=== PATIENT | male | born 1955 | race Caucasian/White ===

== ENCOUNTER 2023-10-11 14:14 | Outpatient (OUT) | payer MEDICARE, SELFPAY ==
--- NOTE | 2023-10-11 14:22 | ECG_ITS ---
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
--- NOTE | 2023-10-11 15:00 | PM.PRESUREVA ---
History of Present Illness History of Present Illness Chief complaint: BPH with Obstruction Narrative: Patient presents for preadmission testing accompanied by his . The patient states he had an elevated PSA, urinary retention, and nocturia. He denies abdominal pain, nausea, vomiting, fever, or any other complaints. Review of Systems ROS Narrative REVIEW OF SYSTEMS: Negative except as stated in HPI, ten or more systems reviewed. Constitutional: No fever , chills, weakness ENT: No sore throat or epistaxis Cardiovascular: No edema, chest pain, palpitations, or activity intolerance Respiratory: No shortness of breath, cough, or wheezing Musculoskeletal: No joint pain or swelling Gastrointestinal: No abdominal pain, constipation, diarrhea, or vomiting Genitourinary: No dysuria or hematuria Neurological: No numbness, tingling, weakness, or headache Psychiatric: No mood changes [facility] Medical History (Updated 10/11/23 @ 15:05 by Linda Umanzor NP) Bowel perforation ?K63.1 - Perforation of intestine (nontraumatic) (ICD-10) Colostomy in place ?Z93.3 - Colostomy status (ICD-10) Pulmonary embolism ?I26.99 - Other pulmonary embolism without acute cor pulmonale (ICD-10) Deep vein thrombosis ?I82.409 - Acute embolism and thrombosis of unspecified deep veins of unspecified lower extremity (ICD-10) Hypothyroidism ?E03.9 - Hypothyroidism, unspecified (ICD-10) BPH with urinary obstruction ?N40.1 - Benign prostatic hyperplasia with lower urinary tract symptoms (ICD-10) ?N13.8 - Other obstructive and reflux uropathy (ICD-10) Surgical History (Updated 10/11/23 @ 14:47 by Linda Umanzor NP) History of colostomy reversal ?Z98.890 - Other specified postprocedural states (ICD-10) History of arthroscopy of shoulder ?Z98.890 - Other specified postprocedural states (ICD-10) History of arthroscopy of knee ?Z98.890 - Other specified postprocedural states (ICD-10) History of hernia repair ?Z98.890 - Other specified postprocedural states (ICD-10) ?Z87.19 - Personal history of other diseases of the digestive system (ICD-10) History of colonoscopy ?Z98.890 - Other specified postprocedural states (ICD-10) S/P cystoscopy (10/05/23) ?Z98.890 - Other specified postprocedural states (ICD-10) Family History (Updated 10/11/23 @ 14:47 by Linda Umanzor NP) Other Family history of myocardial infarction Social History (Updated 10/11/23 @ 14:41 by Linda Umanzor NP) Within the past year, how often did you have a drink containing alcohol: 2-4 times a month Smoking status: Former smoker Non-prescribed substance use: denies use Known occupational exposures/hazards details: [employer] Highest level of school completed/degree received: high school graduate Meds Home Medications and Allergies Home Medications Medication Instructions Recorded Confirmed Type atorvastatin 10 mg tablet 10 mg PO .COMPLEX 10/11/23 10/11/23 History azelastine 137 mcg (0.1 %) nasal 1 spray intranasal DAILY 10/11/23 10/11/23 History spray aerosol ciprofloxacin HCl 500 mg tablet 500 mg PO BID 10/11/23 10/11/23 History hydroxyzine HCl 50 mg tablet 100 mg PO QPM 10/11/23 10/11/23 History levothyroxine 50 mcg tablet 50 mcg PO DAILY 10/11/23 10/11/23 History tamsulosin 0.4 mg capsule 0.4 mg PO BID 10/11/23 10/11/23 History Allergies Allergy/AdvReac Type Severity Reaction Status Date / Time No Known Drug Allergies Allergy Verified 10/11/23 14:38 Exam Narrative Exam Narrative: Constitutional: Awake, alert, comfortable, well-appearing, nontoxic, interactive, vital signs as charted Head: Normocephalic, atraumatic Neck: Supple, normal appearance, normal range of motion, no meningeal signs, no lymphadenopathy Respiratory: No respiratory distress, breath sounds clear Cardiovascular: Regular rate and rhythm, strong and regular heart tones Abdomen: Nontender, normal bowel sounds, soft, no CVA tenderness Musculoskeletal: Normal gait, no swelling or edema Skin: No rashes or induration, no lesions, only visible skin inspected Neuro: No neurological deficits, normal sensation Psychiatric: Oriented ?3, normal affect Assessment and Plan Assessment and Plan (1) BPH with urinary obstruction: Plan Cystoscopy/transurethral resection of the prostate scheduled with Dr. Lyn 10/21/2023.
[2023-10-11 15:17] LABS: Basophils Percent Auto 0.5 % (0.2-2.0); Eosinophils Absolute Auto 0.4 10^3/uL (0.0-0.7); Eosinophils Percent Auto 6.9 % (0.9-7.0); Hematocrit 45.1 % (42.0-54.0); Hemoglobin 14.8 g/dL (14.0-18.0); Immature Granulocytes Abs Auto 0.02 10^3/uL (0.00-0.03); Immature Granulocytes Pct Auto 0.3 % (0.0-0.5); Lymphocytes Absolute Auto 0.8 10^3/uL (1.2-3.8); Lymphocytes Percent Auto 13.1 % (20.5-60.0); Mean Corpuscular HGB Conc 32.8 g/dL (29.9-35.2); Mean Corpuscular Hemoglobin 29.1 pg (25.9-34.0); Mean Corpuscular Volume 88.6 fL (80.0-94.0); Mean Platelet Volume 9.1 fL (9.5-13.5); Monocytes Absolute Auto 0.7 10^3/uL (0.3-0.8); Monocytes Percent Auto 11.4 % (1.7-12.0); Neutrophils Absolute Auto 4.2 10^3/uL (1.4-6.5); Neutrophils Percent Auto 67.8 % (43.0-75.0); Platelet Count 232 10^3/uL (150-450); Red Blood Count 5.09 10^6/uL (4.70-6.10); Red Cell Distribution Width 13.6 % (11.0-15.0); White Blood Count 6.1 10^3/uL (4.0-11.0)
[2023-10-11 15:33] LABS: INR 0.94; Partial Thromboplastin Time 33.5 sec (22.3-36.2)
[2023-10-11 16:20] LABS: Anion Gap 13.9; BUN Creatinine Ratio 17.1; Calcium 8.8 mg/dL (8.5-10.1); Carbon Dioxide 25.1 mmol/L (21.0-32.0); Chloride 105 mmol/L (98-107); Estimated GFR (African America >60 (>=60); Estimated GFR (Non-African Ame 56 (>=60); Glucose 78 mg/dL (74-106); Sodium 140 mmol/L (136-145)
== END 2023-10-11 14:15 | disposition home or self-care (01) ==
LOC: PST 14:15
PROVIDERS: PCP Family Medicine; Visit Provider Urology
DX: Z01.810 Encounter for preprocedural cardiovascular examination (principal); Z01.812 Encounter for preprocedural laboratory examination; Z01.818 Encounter for other preprocedural examination; N40.0 Benign prostatic hyperplasia without lower urinary tract symptoms
CPT/HCPCS: 80048; 85025; 85610; 85730; 93005; G0463

== ENCOUNTER 2023-10-21 14:45 | Outpatient (OUT) | payer MEDICARE, SELFPAY ==
[2023-10-11 14:58] VITALS: BP 127/83; PULSE 81; RESP 16; TEMP 36.3; O2SAT 97; BMI 31.2
[2023-10-21] VITALS (14 sets, daily range): BP systolic 110–155; BP diastolic 71–104; PULSE 62–100; RESP 10–22; TEMP 35.9–36.7; O2SAT 90–98; BMI 30.6; BMI 30.5
--- OUTSIDE RECORDS SUMMARY | 2023-10-21 10:24 | XMS_ITS | CCD ---
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 Name Role Phone KUNS, NASRIN Unavailable Unavailable KUNS, NASRIN Unavailable Unavailable SELF, REFERRED Referring Unavailable SELF, REFERRED Primary Care Unavailable JOSE ALEJANDRO SAUCEDO Attending Unavailable EBJOSE ALEJANDRO ANGULO Admitting Unavailable Kuns, Nasrin Unavailable Shanell Byrne Unavailable Kuns, DO Nasrin Primary Care Provider Kuns, DO Nasrin Attending Provider Kuns, DO Nasrin Primary Care Provider [phone] Kuns, DO Nasrin Attending Provider [phone] Kuns, DO Nasrin Primary Care Provider [phone] Kuns, DO Nasrin Attending Provider MD Kameron Marin Attending Provider Kuns, DO Nasrin Primary Care Provider [phone] Kuns, DO Nasrin Primary Care Provider Kuns, DO Nasrin Attending Provider Kuns, Nasrin Primary Care Unavailable Donato Marint Attending Unavailable Tomas Kameron Admitting Unavailable Community, Outreach Admitting Unavailable Community, Outreach Attending Unavailable Kuns, Nasrin Primary Care Unavailable Kuns, Nasrin Primary Care Unavailable Kuns, Nasrin Attending Unavailable Kuns, Nasrin Admitting Unavailable Marin, Kameron Admitting Unavailable MarinDonatot Attending Unavailable Kuns, Nasrin Primary Care Unavailable Kuns, Nasrin Attending Unavailable Kuns, Nasrin Admitting Unavailable Kuns, Nasrin Primary Care Unavailable Carlozs, Nasrin Attending Unavailable Donna, Nasrin Admitting Unavailable Donna, Nasrin Primary Care Unavailable Kameron Marin Admitting Unavailable Donna, Nasrin Primary Care Unavailable Kameron Marin Attending Unavailable Unavailable Primary Care Provider Unavailfaby e Community, Outreach Attending Provider [phone] DONNASARAHTT Primary Care Physician [phone] MARTINEZ KAUR Referring Unavailable MARTINEZ KAUR Attending Unavailable MARTINEZ KAUR Referring Unavailable IVETTE POOLE Attending Unavailable MARTINEZ KAUR Attending Unavailable Harshil RAM Attending Unavailable DONNA, NASRIN Referring Unavailable RAM, Harshil Hilton Attending Unavailable RAMHarshil Admitting Unavailable RAM, Harshil Hilton Attending Unavailable RAM, Harshil Hilton Referring Unavailable RAM, Harshil Hilton Attending Unavailable SKYE TOBIN Attending Unavailable Allergies Allergy Classification Reported Allergen(s) Allergy Type Date of Onset Reaction(s) Facility (1 source) No Known Medication Allergies; Translations: [No Known Medication Allergies] Propensity to adverse reactions (disorder) [facility] Repository Medications Current Medications Medication Drug Class(es) Dates Sig (Normalized) Sig (Original) acetaminophen 325 mg / HYDROcodone bitartrate 5 mg oral tablet (5 sources) Opioid Agonist Start: 12-31-2022 take 1 tablet by mouth every six hours Hydrocodone-Acetam inophen Active 1 TAB PO Q6H 20 5 December 31, 2022 atorvastatin 10 mg oral tablet (20 sources) HMG-CoA Reductase Inhibitor Start: 10-17-2018 End: 12-18-2022 atorvastatin 10 mg Tab Oral, 0 Refill(s), Refills(s) 0 Start Date: 10/17/18 Status: Ordered azithromycin 250 mg oral tablet (3 sources) Macrolide Antimicrobial Start: 01-27-2022 Zithromax Z-Gilbert 250 MG 2 tablet on the first day, then 1 tablet daily for 4 days Orally Once a day for 5 day(s) Jan, Active ciprofloxacin 500 mg oral tablet (6 sources) Quinolone Antimicrobial Start: 09-13-2023 End: 10-13-2023 take 1 tablet by mouth twice daily Cipro 500 mg Tab 500 mg = 1 tab(s), Oral, BID, X 1 months, # 60 tab(s), Refills(s) 0, Pharmacy: [id number], 195, cm, 09/13/23 12:36:00 EST, Height/Length Dosing, 104.6, kg, 09/13/23 12:36:00 EST, Weight Dosing Start Date: 09/13/23 Stop Date: 10/13/23 Status: Ordered Start: 12-30-2021 take 1 tablet by margarita th every twelve hours Ciprofloxacin HCl 500 MG 1 tablet Orally every 12 hrs Dec, Active ezetimibe 10 mg oral tablet (4 sources) Dietary Cholesterol Absorption Inhibitor Start: 06-23-2022 take 1 tablet by mouth every twenty-four hours Ezetimibe 10 MG 1 tablet Orally Once a day for 90 days Jun, Active hydrOXYzine hydrochloride 50 mg oral tablet (20 sources) Antihistamine Start: 12-03-2021 take 1-2 tablets by mouth once daily at bedtime as needed hydrOXYzine HCl 50 MG 1-2 tablet as needed Orally QHS Dec, Active levothyroxine sodium 0.05 mg oral tablet (20 sources) l-Thyroxine Start: 06-23-2022 take 50 ug by mouth once daily in the morning Levothyroxine Active 50 MCG PO Every morning December 18, 2022 12:00am Start: 06-22-2022 Synthroid 50 m cg Tab Oral, 0 Refill(s), Refills(s) 0 Start Date: 06/22/22 Status: Ordered methylPREDNISolone 4 mg oral tablet (4 sources) Corticosteroid Start: 01-27-2022 Medrol 4 MG as directed Orally Jan, Active Start: 08-06-2021 Medrol 4 MG as directed Orally Aug, Active Kktzevii-Olh-Nfqpe-Vit K-Lycop (Men's Multivitamin) 400-20-300 mcg Tablet (8 sources) Start: 09-01-2019 take 1 tablet by mouth once daily in the morning Dktviwvk-Rqy-Frjqw-Vit K-Lycop (Men's Multivitamin) 400-20-300 mcg Tablet Active 1 TAB PO Every morning September 01, 2019 1:00am Start: 09-01-2019 take 1 tablet by margarita th once daily Sgbpyfdd-Mkz-Qxmii-Vit K-Lycop (Men's Multivitamin) 400-20-300 mcg Tablet Active 1 TAB PO Daily September 01, 2019 12:00am Start: 09-01-2019 take 1 tablet by margarita th once daily Mwdldioz-Chp-Jmlku-Vit K-Lycop (Men's Multivitamin) 400-20-300 mcg Tablet Active 1 TAB PO Daily September 01, 2019 1:00am rosuvastatin calcium 10 mg oral tablet (15 sources) HMG-CoA Reductase Inhibitor Start: 12-18-2022 take 1 tablet by mouth once Rosuvastatin (Crestor) 10 mg Tablet Active 10 MG PO every Wednesday, Wednesday, and Sunday December 18, 2022 12:00am Start: 02-23-2018 End: 10-17-2018 take 1 tablet by mouth once daily Rosuvastatin (Crestor) 5 mg Tablet Discontinued 1 TAB PO Daily February 23, 2018 12:00am October 17, 2018 5:09pm Start: 09-07-2011 take 1 tablet by margarita th once daily at bedtime rosuvastatin (CRESTOR) 20 mg ORAL tablet Take 1 tablet by mouth daily at bedtime. 0 09/07/2011 Active Comment on above: Take 1 tablet by margarita th daily at bedtime. tamsulosin hydrochloride 0.4 mg oral capsule (20 sources) alpha-Adrenergic Karolyn Start: take 1 capsule by mouth every twenty-four hours Tamsulosin HCl 0.4 MG 1 capsule Orally Once a day for 90 days Dec, Active Start: 12-29-2021 take 1 capsule by mo uth twice daily tamsulosin 0.4 mg Cap 0.4 mg = 1 cap(s), Oral, BID, # 60 cap(s), Refills(s) 11, Pharmacy: [id number], 195, cm, 09/13/23 12:36:00 EST, Height/Length Dosing, 104.6, kg, 09/13/23 12:36:00 EST, Weight Dosing Start Date: 09/13/23 Status: Ordered Completed/Discontinued Medications Medication Drug Class(es) Dates Sig (Normalized) Sig (Original) acetaminophen 325 mg / oxyCODONE hydrochloride 5 mg oral tablet (8 sources) Opioid Agonist Start: 09-23-2019 End: 12-18-2022 take 1 tablet by mouth every four hours Oxycodone-Acetamin ophen Discontinued 1 TAB PO Q4H 42 7 September 23, 2019 December 18, 2022 9:36am amitriptyline hydrochloride 100 mg oral tablet (1 source) Tricyclic Antidepressant take 1 tablet by mouth once daily at bedtime amitriptyline 100 mg ORAL tablet Take 100 mg by mouth daily at bedtime. 0 Active Comment on above: Take 100 mg by mouth daily at bedtime. apixaban 5 mg oral tablet (16 sources) Factor Xa Inhibitor Start: 09-26-2019 End: 12-18-2022 take 1 tablet by mouth twice daily Apixaban (Eliquis) 5 mg tablet Discontinued 5 MG PO Twice daily 180 90 September 26, 2019 1:00am December 18, 2022 9:32am start after 1 week Start: 09-26-2019 End: 10-26-2019 take 2 tablets by mouth twice daily, then take 1 tablet by mouth twice daily Apixaban (Eliquis) 5 mg Tablet Discontinued 0 .ROUTE .COMPLEX September 26, 2019 1:00am October 26, 2019 10:10am take 10 mg by mouth twice daily for 7 days; then 5 mg twice daily aspirin 81 mg oral tablet (1 source) Platelet Aggregation Inhibitor, Nonsteroidal Anti-inflammatory Drug Aspirin 81 mg ORA L Tab Take 81 mg by mouth. 0 Active Comment on above: Take 81 mg by mouth. betamethasone 0.5 mg/ml / clotrimazole 10 mg/ml topical cream (13 sources) Azole Antifungal, Corticosteroid Start: 12-05-19 Clotrimazole-Betame thasone 1-0.05 % 1 application Externally Twice a day Dec, Not-Taking doxycycline hyclate 100 mg oral capsule (8 sources) Tetracycline-class Drug Start: 11-05-19 End: 11-12-19 19 take 100 mg by mouth twice daily Doxycycline Hyclate Discontinued 100 MG PO Twice daily 14 7 November 05, 2018 1:00am November 12, 2018 1:02am fluticasone propionate 0.05 mg/actuat metered dose nasal spray (4 sources) Corticosteroid Start: 06-23-20 23 take 1 spray(s) nasal route twice daily fluticasone (FLONASE ALLERGY RELIEF) 50 mcg/actuation nasal spray Use 1 [place] in each nostril twice daily. 18.2 mL 5 06/23/2023 Active Start: 07-13-2019 take 1 spray(s) nasa l route once daily Fluticasone Propionate 50 MCG/ACT 1 spray in each nostril Nasally Once a day Jul, Active Comment on above: Use 1 [place] in each nostril twice daily. levoFLOXacin 750 mg oral tablet (8 sources) Quinolone Antimicrobial Start: 03-17-20 End: 09-01-20 take 750 mg by mouth once daily Levofloxacin Discontinued 750 MG PO Daily 7 March 17, 2019 12:00am September 01, 2019 11:15am metroNIDAZOLE 500 mg oral tablet (8 sources) Nitroimidazole Antimicrobial Start: 03-17-20 End: 09-01-20 take 1 tablet by mouth every eight hours Metronidazole (Flagyl) 500 mg tablet Discontinued 500 MG PO Q8H 23 04March 17, 2019 12:00am September 01, 2019 11:15am multivitamin (DAILY MULTIPLE) ORAL tablet (1 source) Start: 09-07-20 take 1 tablet by mouth once daily multivitamin (DAILY MULTIPLE) ORAL tablet Take 1 tablet by mouth once daily. 0 09/07/2011 Active Comment on above: Take 1 tablet by margarita th once daily. promethazine hydrochloride 25 mg oral tablet (8 sources) Phenothiazine Start: 10-26-19 End: 11-05-19 take 25 mg by mouth every six hours Promethazine Discontinued 25 MG PO Q6H October 26, 2018 1:00am November 05, 2018 2:47pm traMADol hydrochloride 50 mg oral tablet (16 sources) Opioid Agonist Start: 11-05-19 End: 11-08-19 take 50 mg by mouth every six hours Tramadol Discontinued 50 MG PO Q6H 10 November 05, 2018 1:00am November 08, 2018 1:02am Start: 10-26-2018 End: 11-02-2018 take 50 mg by mouth every six hours Tramadol Discontinued 50 MG PO Q6H 28 October 26, 2018 1:00am November 02, 2018 1:01am Problems Active Problems Problem Classification Problem Date Documented Da te Episodic/Chronic Allergic reactions (20 sources) Eczema; Translations: [Dermatitis, unspecified] Onset: 2 Resolved: 2 Episodic Asthma (4 sources) Asthmatic bronchitis; Translations: [Unspecified asthma with (acute) exacerbation] Onset: 2 Resolved: 2 Chronic Disorders of lipid metabolism (20 sources) Hyperlipidemia; Translations: [Hyperlipidemia, unspecified] Onset: 1 Resolved: 3 Chronic Genitourinary symptoms and ill-defined conditions (17 sources) Retention of urine, unspecified; Translations: [Dysuria] Onset: 2 Resolved: 3 Episodic Hyperplasia of prostate (7 sources) Straining on urination due to benign prostatic hypertrophy; Translations: [Benign prostatic hyperplasia with lower urinary tract symptoms] Onset: 3 Chronic Inflammatory conditions of male genital organs (3 sources) Chronic prostatitis; Translations: [Chronic prostatitis] Onset: 3 Chronic Joint disorders and dislocations; trauma-related (1 source) Derangement of knee; Translations: [Unspecified internal derangement of unspecified knee] Onset: 1 07-22-2011 Chronic Nutritional deficiencies (8 sources) Deficiency of macronutrients; Translations: [Unspecified protein-calorie malnutrition] 10-26-2019 Chronic Osteoarthritis (20 sources) Localized, primary osteoarthritis of the shoulder region; Translations: [Primary osteoarthritis, unspecified shoulder] Chronic Other connective tissue disease (13 sources) Pain in right hand; Translations: [Pain in right hand] Episodic Other ear and sense organ disorders (12 sources) Otitis externa; Translations: [Unspecified otitis externa, unspecified ear] Chronic Other ear and sense organ disorders (6 sources) Bilateral hearing loss; Translations: [Unspecified hearing loss, bilateral] 06-23-2023 Chronic Other ear and sense organ disorders (1 source) Unspecified hearing loss, bilateral Chronic Other ear and sense organ disorders (1 source) Does use hearing aid; Translations: [Presence of external hearing-aid] 06-23-2023 Episodic Other ear and sense organ disorders (1 source) Bilateral referred otalgia of ears; Translations: [Otalgia, bilateral] 06-23-2023 Episodic Other gastrointestinal disorders (12 sources) Colostomy present; Translations: [Colostomy status] Chronic Other gastrointestinal disorders (12 sources) History of disorder of digestive system; Translations: [Personal history of other diseases of the digestive system] Episodic Other gastrointestinal disorders (8 sources) Perforation of sigmoid colon; Translations: [Perforation of intestine (nontraumatic)] 10-26-2019 Episodic Other gastrointestinal disorders (8 sources) Viscus structure finding; Translations: [Other specified symptoms and signs involving the digestive system and abdomen] 10-26-2019 Episodic Other lower respiratory disease (1 source) Shortness of breath; Translations: [Shortness of breath] Onset: 8 Episodic Other nervous system disorders (5 sources) Acute postoperative pain; Translations: [Other acute postprocedural pain] 12-31-2022 Episodic Other non-traumatic joint disorders (20 sources) Shoulder joint pain; Translations: [Pain in right shoulder] Episodic Other screening for suspected conditions (not mental disorders or infectious disease) (20 sources) Encounter for screening for malignant neoplasm of prostate; Translations: [Thyroid function tests abnormal] Onset: 1 Resolved: 2 Episodic Other upper respiratory disease (1 source) Allergic disposition; Translations: [Other allergic rhinitis] 06-23-2023 Chronic Otitis media and related conditions (2 sources) Other specified disorders of Eustachian tube, unspecified ear; Translations: [Dysfunction of bilateral eustachian tubes] Episodic Peritonitis and intestinal abscess (8 sources) Peritonitis; Translations: [Peritonitis, unspecified] 10-26-2019 Episodic Pulmonary heart disease (20 sources) Pulmonary embolism; Translations: [Other pulmonary embolism without acute cor pulmonale] 10-24-2019 Episodic Residual codes; unclassified (20 sources) Insomnia; Translations: [Insomnia, unspecified] 09-10-2023 Episodic Residual codes; unclassified (20 sources) FH: Cardiovascular disease; Translations: [Family history of ischemic heart disease and other diseases of the circulatory system] Episodic Residual codes; unclassified (20 sources) History of closure of colostomy; Translations: [Other specified postprocedural states] 10-26-2019 Episodic Residual codes; unclassified (9 sources) Insomnia, unspecified Onset: 2 Resolved: 2 Episodic Residual codes; unclassified (8 sources) History of excision of small intestine; Translations: [Acquired absence of other specified parts of digestive tract] 10-26-2019 Episodic Residual codes; unclassified (1 source) Other specified postprocedural states Episodic Thyroid disorders (16 sources) Acquired hypothyroidism; Translations: [Hypothyroidism, unspecified] Onset: 2 Resolved: 2 Chronic Unclassified (2 sources) Shortness of breath / R06.02(ICD-9) Onset: 8 Unclassified (1 source) Family hx of ischem heart dis and oth dis of the circ sys / Z82.49(ICD-9) Onset: 8 Unclassified (1 source) Pure hypercholesterolemia, unspecified / E78.00(ICD-9) Onset: 8 Unclassified (1 source) Chest pain, unspecified / R07.9(ICD-9) Onset: 8 Unclassified (1 source) Personal history of nicotine dependence / Z87.891(ICD-9) Onset: 8 Unclassified (8 sources) Diverticulitis of gastrointestinal tract; Translations: [Diverticulitis of gastrointestinal tract] 03-17-2019 Unclassified (1 source) Other complications of procedures, not elsewhere classified, initial encounter; Translations: [Other complications of procedures, not elsewhere classified, initial encounter] Onset: 3 Unclassified (1 source) Encounter for preprocedural laboratory examination; Translations: [Encounter for preprocedural laboratory examination] Onset: 3 Unclassified (2 sources) Finding of sensation of bladder 09-13-2023 Unclassified (2 sources) History of closure of colostomy 09-10-2023 Past or Other Problems Problem Classification Problem Date Documented Date Episodic/Chronic Abdominal hernia (1 source) Unspecified abdominal hernia without obstruction or gangrene Onset: 08-06-2021 Resolved: 08-06-2021 Episodic Abdominal pain (9 sources) Acute abdomen; Translations: [Acute abdomen] Onset: 12-08-2022 10-26-2019 Episodic Diabetes mellitus without complication (1 source) Hyperglycemia, unspecified Onset: 08-06-2021 Resolved: 08-06-2021 Episodic Immunizations and screening for infectious disease (1 source) Encounter for immunization Onset: 08-25-2021 Resolved: 08-25-2021 Episodic Other circulatory disease (2 sources) Other specified symptoms and signs involving the circulatory and respiratory systems Onset: 08-26-2021 Resolved: 01-27-2022 Episodic Other connective tissue disease (1 source) Pain in right hand Onset: 06-23-2022 Resolved: 06-23-2022 Episodic Other diseases of kidney and ureters (1 source) Disorder of kidney and ureter, unspecified Onset: 08-06-2021 Resolved: 08-06-2021 Episodic Other liver diseases (1 source) Abnormal levels of other serum enzymes Onset: 08-06-2021 Resolved: 08-06-2021 Episodic Other nervous system disorders (1 source) Other acute postprocedural pain; Translations: [Other acute postprocedural pain] Onset: 12-31-2022 Episodic Other non-traumatic joint disorders (1 source) Pain in lower limb; Translations: [Pain in unspecified knee] Onset: 10-07-2011 10-07-2011 Episodic Other upper respiratory disease (1 source) Nasal congestion Onset: 01-27-2022 Resolved: 01-27-2022 Episodic Screening and history of mental health and substance abuse codes (1 source) Personal history of nicotine dependence Onset: 08-26-2021 Resolved: 08-26-2021 Episodic Spondylosis; intervertebral disc disorders; other back problems (2 sources) Dorsalgia, unspecified Onset: 08-06-2021 Resolved: 08-26-2021 Episodic Unclassified (2 sources) Cough R05.9 Onset: 08-26-2021 Resolved: 01-27-2022 Results Test Name Value Interpretation Reference Range Facility Consent for Procedure/Surger yon 10-07-2023 Consent for Procedure/Surgery [id number] 0TIFF [facility] Consent for Procedure/Surger yon 10-05-2023 Consent for Procedure/Surgery [id number]. 00TIFF [facility] Consent for Treatmenton Consent for Treatment [id number] 0TIFF [facility] IntraOperative Documentson 0 10-05-2023 IntraOperative Documents [id number]. 00TIFF [facility] IntraOperative Documents [id number]. 00TIFF Normal [facility] Main OR Intraoperative Recor don 10-05-2023 Main OR Intraoperative Record IntraOp Document Type FTURO Summary Primary Physician: Harshil RAM MD Finalized Date/Time: 10/05/23 09:58:51 Pt. Name: VASILE YOUSSEF /Sex: 1955 Male Med Rec #: [id number] Physician: Harshil RAM MD Financial #: [id number] Pt. Type: O Room/Bed: / Admit/Disch: 10/05/23 08:07:42 - Institution: Case Times FTURO Entry 1 Patient Times In Room 10/05/23 09:40:00 Out Room 10/05/23 10:00:00 Procedure Times Start 10/05/23 09:50:00 Stop 10/05/23 09:55:00 Anesthesia Times Last Modified By: James BARRAZA, DALEOR, Marilee 10/05/23 09:57:00 Case Attendance FTURO Entry 1 Entry 2 Entry 3 Case Attendee Harshil RAM MD RN, CNOR, Marie Ortiz Role Performed Surgeon - Primary Profiling Machine Operator - Primary Scrub - Primary Time In 10/05/23 09:40:00 10/05/23 09:40:00 10/05/23 09:40:00 Time Out 10/05/23 10:00:00 10/05/23 10:00:00 10/05/23 10:00:00 Procedure CYSTOSCOPY LOCAL(.) CYSTOSCOPY LOCAL(.) CYSTOSCOPY LOCAL(.) Jackson CAO RN IN ORIENTATION Last Modified By: James RN, CNOR, Jaems RN, CNOR, James RN, DALEOR, Marilee 10/05/23 Marilee 10/05/23 Marilee 10/05/23 09:57:03 09:57:03 09:57:03 Surgical Procedures FTURO Entry 1 Procedure Description Procedure CYSTOSCOPY LOCAL Modifiers . Surgeon Description CYSTOCOPY LOCAL Primary Procedure Yes Primary Surgeon Harshil RAM MD Start 10/05/23 09:50:00 Stop 10/05/23 09:55:00 Anesthesia Type Local Surgical Service Urology Wound Class 2 - Clean-Contaminated Last Modified By: ELI Ramirez RN, Ruthann 10/05/23 09:55:27 General Case Data FTURO Pre-Care Text: Classifies surgical wound, implements aseptic technique, initiates traffic control Entry 1 Case Information OR URO 1 FT Case Level None Wound Class 2 - Clean-Contaminated Specialty Urology Preop Diagnosis BPH WITH LUTS Postop Same As Preop No INCOMPLETE EMPTY ELEVATED PSA Postop Diagnosis BPH WITH LUTS Outcomes Met? Yes Last Modified By: ELI Ramirez RN, Ruthann 10/05/23 09:55:18 Post-Care Text: The patient is free from signs and symptoms of infection EU IntraOp - FTURO Pre-Care Text: Implements protective measures prior to operative or invasive procedure, confirms identity before the operative or invasive procedure, verifies operative procedure, surgical site, and laterality Entry 1 EU Perioperative Protocols Procedure(s) CYSTOSCOPY LOCAL(.) Patient Identity Birthday, ID Band Verified (select at Check, Patient least 2): Participation Consents / H and P HandP, Surgery/Procedure Operative Site N/A Verified Consent Marking Verified Surgical Site Yes Laterality Verified n/a Verified Procedure Verified Yes Correct Patient Yes Position Verified Availability Equipment, Medication Time Out ELI Ramirez RN, Verified (If Participants Angel Hunt Laura C Applicable) Time Out Complete 10/05/23 09:41:00 Allergies Reviewed? Yes Allergies Reviewed Self/Patient With Body Position Supine Prep Area PERINEAL AREA Prep Agents Betadine Solution Skin. Condition Dry, Warm Additional None Specimens Collected Vitals - EU Blood Pressure 145/97 Pulse 88 bpm Respirations 16 br/min SPO2 96 % EBL 0 IandO - EU Total Intake 0 mL Total Output 0 mL Outcomes Met? Yes Last Modified By: ELI Ramirez RN, Ruthann 10/05/23 09:44:56 Post-Care Text: The patient is free from signs and symptoms of injury caused by extraneous objects Sign Out FTURO Entry 1 Before Patient Leaves OR Nurse verbally Yes Nurse verbally n/a confirms with the confirms with the team the name of team that the procedure(s) instrument, sponge, recorded and needle counts are correct (or N/A) Nurse verbally n/a Nurse verbally n/a confirms with the confirms with the team how the team whether there specimen is labeled are any equipment (including patient problems to be name), if applicable addressed Sign Out Complete 10/05/23 09:55:00 Last Modified By: ELI Ramirez RN, Ruthann 10/05/23 09:55:40 Case Comments Finalized By: ELI Ramirez RN, Ruthann Document Signatures Signed By: ELI Ramirez RN, Ruthann 10/05/23 09:57 ELI Ramirez RN, Ruthann 10/05/23 09:[address] [facility] Main OR Preoperative Recordo n 10-05-2023 Main OR Preoperative Record Holding Area Document Type FTURO Summary Primary Physician: Harshil RAM MD Finalized Date/Time: 10/05/23 09:27:50 Pt. Name: VASILE YOUSSEF/Sex: 1955 Male Med Rec #: [id number] Physician: Harshil RAM MD Financial #: [id number] Pt. Type: O Room/Bed: / Admit/Disch: 10/05/23 08:07:42 - Institution: Case Times Holding FTURO Pre-Care Text: Verifies consent for planned procedure, identifies individual values and wishes concerning care, includes family members in perioperative teaching Secures patient's records' belongings, and valuables, maintains patient's dignity and privacy, and maintains patient confidentiality Entry 1 In Holding 10/05/23 09:17:00 Outcomes Met? Yes Last Modified By: Shriin Rodriguez RN 10/05/23 09:17:26 Post-Care Text: The patient participates in decisions affecting his or her perioperative plan of care The patient's right to privacy is maintained Surgery Checklist FTURO Entry 1 Patient Birthday, ID Band Procedure History and Physical, Identification: Check, Patient Verification: Surgical Consent, With Participation Patient NPO after Midnight: n/a Personal Items: Glasses Personal Items READING GLASSES Limitations: UP AD ALANNA Comment: Complaints of Pain: No Pain Comment: 0/10 Skin Integrity Dry, Warm Vitals - EU Blood Pressure 145/97 Pulse 88 bpm Respirations 16 br/min SPO2 96 % Additional None RN Reviewed Yes Specimens Collected Last Modified By: Shirin Rodriguez RN 10/05/23 09:25:44 Finalized By: Shirin Rodriguez RN Document Signatures Signed By: Shirin Rodriguez RN 10/05/23 09:25 Shirin Rodriguez RN 10/05/23 09:[address] [facility] Operative Reporton Operative Report Patient: DYANA YOUSSEF Age: 68 years Sex: Male : 1955 Associated Diagnoses: None Author: Harshil RAM MD Procedure Operative Information Details: Date/ Time: 10/05/2023 10:00:00. Pre-Op Dx: BPH w/ LUTS - N40.1, Hx of UTI's - Z87.440, Incomplete Bladder Emptying - R39.14. Post-Op Dx: Same. Anesthesia Type: Local. Procedure: Local Cystoscopy. Complications: None. Risks/Benefits/Informe d Consent: Surgical risks, benefits, details of the procedure have been explained to the patient, Full informed consent has been obtained. Intraoperative Information Prepped: Patient is brought back to the endoscopy suite, Patient is placed in supine position, Patient prepped in the usual fashion with Betadine solution, 2% Xylocaine Jelly is placed per Urethra, After waiting several minutes the Cystoscope is introduced. The Urethra is: Normal. The Prostatic Urethra is: Obstructed, Median Lobe, Trilobar obstruction.. The Bladder is: Trabeculated (Severe (3), Thick trabeculation. Small diverticuli. No bladder tumors.). The ureteral orifices: Show efflux of clear urine. Devices Implanted: None. Removal: Cystoscope is removed, The patient tolerated it well. Postoperative Information Discharge: Patient is discharged home with antibiotic coverage, Follow up arranged. Patient is desirous for TURP. He will continue his Flomax for now.. Normal [facility] Comment on above: Result Comment: Elec tronically Signed By: Harshil RAM MD\.br\Date and Time Signed: 10/05/23 10:02 EST Outpatient Surgery Discharge Instructionon 10-05-2023 Outpatient Surgery Discharge Instruction [id number]. [id number] Normal [facility] Progress Note-Physicianon Progress Note-Physician Patient: VASILE YOUSSEF Age: 68 years Sex: Male : 1955 Associated Diagnoses: None Author: YO OLIVA, Harshil Ulrich X this gentleman has had bladder outlet obstructive symptoms that have been refractory to medications. Today he had cystoscopy which showed trilobar obstruction and compensatory damage to the bladder. He is strongly desirous for TURP. His urodynamics will be getting repeated. Review of Systems ROS reviewed as documented in chart Health Status Allergies: Allergic Reactions (Selected) No Known Medication Allergies Current medications: Home Medications (6) Active atorvastatin 10 mg Tab Cipro 500 mg Tab 500 mg = 1 tab(s), Oral, BID hydrOXYzine hydrochloride 50 mg oral tablet Synthroid 50 mcg Tab tamsulosin 0.4 mg Cap tamsulosin 0.4 mg Cap 0.4 mg = 1 cap(s), Oral, BID Problem list: All Problems Unspecified hearing loss, bilateral / SNOMED CT 099420311 / Confirmed Insomnia / SNOMED CT 031350301 / Confirmed History of closure of colostomy / SNOMED CT 9122736213 / Confirmed Elevated PSA / SNOMED CT 7559350232 / Confirmed BPH with obstruction/lower urinary tract symptoms / SNOMED CT 3864719776 / Confirmed Feeling of incomplete bladder emptying / SNOMED CT 408073383 / Confirmed Chronic prostatitis / SNOMED CT 94379055 / Confirmed Histories Past Medical History: Resolved Acute retention of urine (105987216): Onset on 12/30/2021 at 66 years. Resolved on 09/10/2023 at 68 years. Hyperlipidemia (72357942): Onset on 08/06/2021 at 66 years. Resolved on 09/10/2023 at 68 years. Family History: Entire family history is negative. Procedure history: Knee (085163947). Colostomy (0770012387). Rotator cuff (49272954). Hernia (5697755522). Social History Social & Psychosocial Habits Tobacco 09/13/2023 Tobacco Use: Former smoker, quit more Smokeless tobacco use: Never Type: Cigarettes Concerns about tobacco use in household: No Smoking Cessation Yes . Objective He is afebrile his vital signs are stable. He is resting in no acute distress. Abdomen is soft and nontender. External genitalia are normal. Impression and Plan Impression: #1. This gentleman has BPH with LUTS refractory to medications. He also is getting recurrent prostate infections. He is desirous for TURP. Plan: #1. He will continue twice daily Flomax for now. 2. We will repeat his urodynamics today. 3. He will get scheduled for a TURP. [facility] Comment on above: Result Comment: Elec tronically Signed By: YO OLIVA, Harshil Santiago\Date and Time Signed: 10/05/23 10:05 EST Gregoria 09-23-2023 CNOV Office Visit (OTOLLN ) STEFFVASILE Fong ([id number]) 1955 M Date Time Provider Department 09/23/23 9:40 AM MARTINEZ KAUR During your visit today, we recorded the following information about you: Temperature 97.8 degrees Martinez Kaur PA-C 09/24/2023 2:36 PM Signed [facility] FOLLOW-UP CLINIC NOTE CC: Mr. Youssef is a 68 year old male who comes in for follow up. Patient was last seen on 06/23/2023 with plan of care: ASSESSMENT: Wears hearing aid in both ears Etd (eustachian tube dysfunction), bilateral Environmental and seasonal allergies Bilateral hearing loss, unspecified hearing loss type (primary encounter diagnosis) Referred otalgia of both ears PLAN: - Ordered hearing test with tympanometry for further evaluation of hearing, underlying etiology of tinnitus - Trial of Flonase; instructed patient on appropriate use, side effects and need for daily adherence to realize benefits - Aggressive allergy management, avoidance of allergic triggers, daily oral antihistamine, nasal saline rinses - Warm compress, gentle massage, analgesia as needed, soft diet advised, avoid clenching or grinding teeth; make appointment with a dentist who specializes in TMJ for further treatment, oral appliance if indicated - Advised patient on red flag warning signs, symptoms that warrant immediate evaluation in ER - Follow up after hearing test; sooner if clinically indicated Martinez Kaur PA-C [facility] ASSESSMENT: Sensorineural hearing loss (snhl) of both ears (primary encounter diagnosis) Environmental and seasonal allergies Impairment of speech discrimination Abnormal auditory perception of both ears PLAN: - Discussed results of hearing test with patient; all patient questions answered, medically cleared to pursue amplification, HAE scheduling information provided - Patient may continue daily Flonase; instructed patient on appropriate use, side effects and need for daily adherence to realize benefits - Aggressive allergy management, avoidance of allergic triggers, daily oral antihistamine, nasal saline rinses - Annual hearing test, avoidance of noise exposure, discontinue Qtip use, no foreign objects in ears - Advised patient on red flag warning signs, symptoms that warrant immediate evaluation in ER - Follow up in 12 months with hearing test; sooner if clinically indicated Martinez Kaur PA-C [facility] HPI: Since last visit, patient reports ear congestion, nasal congestion has improved with Flonase use. Patient denies any improvement in hearing, notes he has lost confidence in [facility] and interested in pursuing hearing aids through [facility] Audiology section. No new head or neck complaints today. Recall, history of ear infections, no PE tubes. Patient endorses history of seasonal and environmental allergies, last Allergy evaluation 20+ years ago and currently scheduled for new evaluation. 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 Patient accompanied by during duration of visit today. Past medical history: PAST MEDICAL HISTORY Diagnosis Date NEGATIVE MEDICAL HISTORY Past surgical history: PAST SURGICAL HISTORY Procedure Laterality Date ARTHROSCOPY KNEE DIAGNOSTIC W/WO SYNOVIAL BX SPX 2007 left Arthroscopy, knee Current medication(s): Current Outpatient Medications Medication Sig fluticasone (FLONASE ALLERGY RELIEF) 50 mcg/actuation nasal spray Use 1 [place] in each nostril twice daily. amitriptyline 100 mg ORAL tablet Take 100 mg by mouth daily at bedtime. Aspirin 81 mg ORAL Tab Take 81 mg by mouth. rosuvastatin (CRESTOR) 20 mg ORAL tablet Take 1 tablet by mouth daily at bedtime. multivitamin (DAILY MULTIPLE) ORAL tablet Take 1 tablet by mouth once daily. No current facility-administered medications for this visit. Allergies: ALLERGIES No Known Allergies Social history: Social History Tobacco Use Smoking status: Every Day Packs/day: 0.10 Years: 20.00 Additional pack years: 0.00 Total pack years: 2.00 Types: Cigarettes Smokeless tobacco: Never Substance Use Topics Alcohol use: No Drug use: No Family history: FAMILY HISTORY Problem Relation Age of Onset None Mother Heart Father 47 mi There are no exam notes on file for this visit. ROS: CONSTITUTIONAL: No fevers, chills, nightsweats, unintended weight loss HEAD: - headaches, - head injury EYES: - glasses/contact lens, - changes in vision, - diplopia, - blurry vision, - floaters EARS: + hearing loss, + change in hearing, + tinnitus, + otalgia, - ear pressure, + ear congestion, - otorrhea, - itching, - autophony, + ear infections, - PE tubes NOSE AND SINUSES: + nasal congestion, - rhinorrhea, - PND, - epistaxis, - sense of smell, - history of nasa (more content not included)... Normal [facility] Office Visit (OTAULO ) VASILE YOUSSEF ([id number]) 1955 Date Time Provider Department 09/23/23 9:00 AM IVETTE POOLE During your visit today, we recorded the following information about you: Ivette Poole AuD, [facility] 10/05/2023 8:57 PM Addendum [facility] AUDIOLOGIC EVALUATION REPORT Name: Vasile Youssef CC#: [id number] Date of Service: 09/23/2023 Date of : 1955 Age: [age] year old Referred by: Martinez Kaur [address] [facility] [place] [address] Referred for: Evaluation of the cause of disorder of hearing, tinnitus, or balance. Referral documented: In an order in [facility] Patient's major complaints: Vasile has known history of bilateral hearing loss and use of binaural [facility] [facility] hearing aids that were fitted at an outside facility 5 years ago. Complaints of difficulty understanding speech particularly in background noise or more demanding listening environments despite use of amplification. Vasile reported a few episodes of dizziness, lightheadedness described as feeling like he's going to pass out for the past few weeks. Patient stated this may be related to an infection he has as a result of a ruptured colon from a colonoscopy 5 years ago. He follows with infection disease. Patient denies tinnitus, vertigo, imbalance. 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 Vasile Youssef was seen for an initial audiologic evaluation. See [facility] Audiogram for additional reported history and symptoms. Risk of Falls Documentation for over 65 years old: No history of falls reported so minimal to no risk IMPRESSIONS RIGHT EAR: Sensorineural Hearing Loss most likely consistent with presbycusis AND noise exposure LEFT EAR: Sensorineural Hearing Loss most likely consistent with presbycusis AND noise exposure AUDIOLOGIC EVALUATION Following is a brief interpretation of the obtained findings from the audiologic evaluation. Refer to the Auditory Test Record for complete audiometric results. The patient was counseled about the test findings and appropriate audiologic recommendations were made. SUMMARY: Audiogram can be viewed under Proc tab. OTOSCOPY RIGHT EAR: Otoscopic inspection revealed clear ear canal, Tympanic Membrane intact. LEFT EAR: Otoscopic inspection revealed clear ear canal, Tympanic Membrane intact. TYMPANOMETRY Description of procedure: This test is an objective evaluation of middle ear function. CPT code: 86071 RIGHT EAR: Normal ME pressure and high TM compliance (mobility). LEFT EAR: Normal ME pressure and high TM compliance (mobility). PURE TONE AUDIOMETRY AND SPEECH TESTING Description of procedure: This test is an objective evaluation hearing sensitivity via air and bone conduction and speech recognition testing. CPT code:79420 RIGHT EAR: Hearing Sensitivity: Mild sloping to severe Sensorineural Hearing Loss above 500 Hz. Word Recognition Score: Good (82%). WRS is consistent with hearing sensitivity. Words were presented at 95 dB HL is above (greater than or equal to 60 dB HL) intensity level for average conversational speech. The NU-6 Word List (25 words) was used. LEFT EAR: Hearing Sensitivity: Mild sloping to severe Sensorineural Hearing Loss above 500 Hz. Word Recognition Score: Fair (76%). WRS is consistent with hearing sensitivity. Words were presented at 90 dB HL is above (greater than or equal to 60 dB HL) intensity level for average conversational speech. The NU-6 Word List (25 words) was used. RECOMMENDATIONS 1. ENT follow up per orders. 2. Continue follow up with his medical team and infectious disease. 3. The patient should continue binaural amplification. Recommend patient return for a hearing aid check with his dispenser for maintenance and programming as needed. 4. Annual recheck. 5. Hearing conservation. 6. The patient was counseled and given written information regarding hearing loss and effective communication strategies to enhance communication ability. Clayton Strong, LOI/A Clinical [employer] HALL Abbrev- iation Definition Degree of hearing sensitivity dB range WNL within normal limits WNL 0 - 20 SNHL sensorineural hearing loss Mild 20-40 CHL conductive hearing loss Moderate 40-55 MHL mixed hearing loss Moderately-Severe 55-70 WRS word recognition score Severe 70-90 ME middle ear Profound 90 + TM tympanic membrane Referring Provider: MARTINEZ KAUR [[id number]] Allergies As of Date: 09/23/2023 (No Known Allergies) Date Reviewed: 09/23/2023 Reviewed by: Krystal Romo MA - Fully Assessed Reason for Visit: Hearing Loss [111 (more content not included)... Normal [facility] Physician Referralon 023 Physician Referral [id number]. 00TIFF Normal [facility] [place] 09-14-2023 Screens [id number] [facility] Ambulatory Visit Summaryon 1 11-14-2022 Ambulatory Visit Summary VASILE YOUSSEF :1955 Visit Date:09/13/2023 Ambulatory Visit Instructions Your Diagnosis Elevated PSA BPH with obstruction/lower urinary tract symptoms Feeling of incomplete bladder emptying Chronic prostatitis Your Care Team Attending Physician - YO OLIVA, Harshil Hilton Primary Care Physician - NASRIN WATSON DO Referring Physician - NASRIN WATSON DO This Is Your Medications List Contact prescribing physician if questions or concerns atorvastatin (atorvastatin 10 mg Tab) hydrOXYzine (hydrOXYzine hydrochloride 50 mg oral tablet) levothyroxine (Synthroid 50 mcg Tab) tamsulosin (tamsulosin 0.4 mg Cap) Procedures Performed Colostomy, Hernia, Knee, Rotator cuff. Discharge Vitals Respiratory Rate 16 Height 195 cm Height 77 in Weight 104.6 kg Weight 230.12 lb BMI 27.51 What to do next You Need to Schedule the Following Appointments Follow Up with YO OLIVA, Harshil Hilton, ANDRY When: Comments: Schedule Cysto w/Bladder function test Where: [facility] [address] [place] [address]- Medications What When Instructions Unchanged atorvastatin (atorvastatin 10 mg Tab) Oral, 0 Refill(s) Contact prescribing physician if questions or concerns Unchanged hydrOXYzine (hydrOXYzine hydrochloride 50 mg oral tablet) Oral, 0 Refill(s) Contact prescribing physician if questions or concerns Unchanged levothyroxine (Synthroid 50 mcg Tab) Oral, 0 Refill(s) Contact prescribing physician if questions or concerns Unchanged tamsulosin (tamsulosin 0.4 mg Cap) Oral, 0 Refill(s) Contact prescribing physician if questions or concerns Allergies No Known Medication Allergies Problems Ongoing - Any problem that you are currently receiving treatment for. BPH with obstruction/lower urinary tract symptoms Chronic prostatitis Elevated PSA Feeling of incomplete bladder emptying History of closure of colostomy Insomnia Unspecified hearing loss, bilateral Historical - Any problem that you are no longer receiving treatment for. Acute retention of urine Hyperlipidemia Patient Survey You may receive a survey via text or e-mail asking about your office visit. Please share your experience with us by completing your survey. We appreciate your feedback and thank you for choosing us for your care. Education Materials Benign Prostatic Hyperplasia Benign prostatic hyperplasia (BPH) is an enlarged prostate gland that is caused by the normal aging process. The prostate may get bigger as a man gets older. The condition is not caused by cancer. The prostate is a walnut-sized gland that is involved in the production of semen. It is located in front of the rectum and below the bladder. The bladder stores urine. The urethra carries stored urine out of the body. An enlarged prostate can press on the urethra. This can make it harder to pass urine. The buildup of urine in the bladder can cause infection. Back pressure and infection may progress to bladder damage and kidney (renal) failure. What are the causes? This condition is part of the normal aging process. However, not all men develop problems from this condition. If the prostate enlarges away from the urethra, urine flow will not be blocked. If it enlarges toward the urethra and compresses it, there will be problems passing urine. What increases the risk? This condition is more likely to develop in men older than 50 years. What are the signs or symptoms? Symptoms of this condition include: ? Getting up often during the night to urinate. ? Needing to urinate frequently during the day. ? Difficulty starting urine flow. ? Decrease in size and strength of your urine stream. ? Leaking (dribbling) after urinating. ? Inability to pass urine. This needs immediate treatment. ? Inability to completely empty your bladder. ? Pain when you pass urine. This is more common if there is also an infection. ? Urinary tract infection (UTI). How is this diagnosed? This condition is diagnosed based on your medical history, a physical exam, and your symptoms. Tests will also be done, such as: ? A post-void bladder scan. This measures any amount of urine that may remain in your bladder after you finish urinating. ? A digital rectal exam. In a rectal exam, your health care provider checks your prostate by putting a lubricated, gloved finger into your rectum to feel the back of your prostate gland. This exam detects the size of your gland and any abnormal lumps or growths. ? An exam of your urine (urinalysis). ? A prostate specific antigen (PSA) screening. This is a blood test used to screen for prostate cancer. ? An ultrasound. This test uses sound waves to electronically produce a picture of your prostate gland. Your health care provider may refer you to a specialist in kidney and prostate diseases (urologist). How is this treated? Once symptoms begin, your healt (more content not included)... Normal [facility] Patient Educationon 09-13-20 Patient Education Urology Benign Prostatic Hyperplasia Benign prostatic hyperplasia (BPH) is an enlarged prostate gland that is caused by the normal aging process. The prostate may get bigger as a man gets older. The condition is not caused by cancer. The prostate is a walnut-sized gland that is involved in the production of semen. It is located in front of the rectum and below the bladder. The bladder stores urine. The urethra carries stored urine out of the body. An enlarged prostate can press on the urethra. This can make it harder to pass urine. The buildup of urine in the bladder can cause infection. Back pressure and infection may progress to bladder damage and kidney (renal) failure. What are the causes? This condition is part of the normal aging process. However, not all men develop problems from this condition. If the prostate enlarges away from the urethra, urine flow will not be blocked. If it enlarges toward the urethra and compresses it, there will be problems passing urine. What increases the risk? This condition is more likely to develop in men older than 50 years. What are the signs or symptoms? Symptoms of this condition include: ? Getting up often during the night to urinate. ? Needing to urinate frequently during the day. ? Difficulty starting urine flow. ? Decrease in size and strength of your urine stream. ? Leaking (dribbling) after urinating. ? Inability to pass urine. This needs immediate treatment. ? Inability to completely empty your bladder. ? Pain when you pass urine. This is more common if there is also an infection. ? Urinary tract infection (UTI). How is this diagnosed? This condition is diagnosed based on your medical history, a physical exam, and your symptoms. Tests will also be done, such as: ? A post-void bladder scan. This measures any amount of urine that may remain in your bladder after you finish urinating. ? A digital rectal exam. In a rectal exam, your health care provider checks your prostate by putting a lubricated, gloved finger into your rectum to feel the back of your prostate gland. This exam detects the size of your gland and any abnormal lumps or growths. ? An exam of your urine (urinalysis). ? A prostate specific antigen (PSA) screening. This is a blood test used to screen for prostate cancer. ? An ultrasound. This test uses sound waves to electronically produce a picture of your prostate gland. Your health care provider may refer you to a specialist in kidney and prostate diseases (urologist). How is this treated? Once symptoms begin, your health care provider will monitor your condition (active surveillance or watchful waiting). Treatment for this condition will depend on the severity of your condition. Treatment may include: ? Observation and yearly exams. This may be the only treatment needed if your condition and symptoms are mild. ? Medicines to relieve your symptoms, including: ? Medicines to shrink the prostate. ? Medicines to relax the muscle of the prostate. ? Surgery in severe cases. Surgery may include: ? Prostatectomy. In this procedure, the prostate tissue is removed completely through an open incision or with a laparoscope or robotics. ? Transurethral resection of the prostate (TURP). In this procedure, a tool is inserted through the opening at the tip of the penis (urethra). It is used to cut away tissue of the inner core of the prostate. The pieces are removed through the same opening of the penis. This removes the blockage. ? Transurethral incision (TUIP). In this procedure, small cuts are made in the prostate. This lessens the prostate's pressure on the urethra. ? Transurethral microwave thermotherapy (TUMT). This procedure uses microwaves to create heat. The heat destroys and removes a small amount of prostate tissue. ? Transurethral needle ablation (TUNA). This procedure uses radio frequencies to destroy and remove a small amount of prostate tissue. ? Interstitial laser coagulation (ILC). This procedure uses a laser to destroy and remove a small amount of prostate tissue. ? Transurethral electrovaporization (TUVP). This procedure uses electrodes to destroy and remove a small amount of prostate tissue. ? Prostatic urethral lift. This procedure inserts an implant to push the lobes of the prostate away from the urethra. Follow these instructions at home: ? Take [id number]-ips-[id number] and prescription medicines only as told by your health care provider. ? Monitor your symptoms for any changes. Contact your health care provider with any changes. ? Avoid drinking large amounts of liquid before going to bed or out in public. ? Avoid or reduce how much caffeine or alcohol you drink. ? Give yourself time when you urinate. ? Keep all follow-up visits. This is important. Contact a health care provider if: ? You have unexplained back pain. ? Your symptoms do not get better with treatment. ? You develop side effects from the medicine (more content not included)... Normal [facility] CT ABDOMEN PELVIS W IV CONTR Nick 08-04-2023 CT ABDOMEN PELVIS W IV CONTRAST EXAM: CT ABDOMEN PELVIS W IV CONTRAST History: Cutaneous abscess of abdominal wall Technique: Multiple contiguous axial images were obtained of the abdomen and pelvis from the level of the lung bases through the ischial tuberosities with contrast. Multiplanar reformats were obtained. Delayed images were obtained. All CT scans at this facility use dose modulation, iterative reconstruction, and/or weight based dosing when appropriate to reduce radiation dose to as low as reasonably achievable. Comparison: CT abdomen pelvis April 29, 2020 Findings: Lung bases are clear. A few tiny well-circumscribed hypodense lesions of the liver are again identified and are most compatible with cysts. The gallbladder, stomach, spleen, pancreas, and adrenal glands are within normal limits. Simple appearing 3.8 cm right renal cyst and simple appearing 4 cm left renal cyst. Additional tiny hypodensities of both kidneys are identified but are too small to definitively characterize. No urinary tract calculi or hydronephrosis. Urinary bladder is incompletely distended but otherwise unremarkable. The prostate is enlarged. Abdominal aorta is nonaneurysmal. No retroperitoneal or abdominal/pelvic lymphadenopathy. Postsurgical changes are identified within the central lower abdomen/upper pelvis and do not appear significantly changed from prior examination. No small bowel obstruction. Colonic diverticuli are identified. No overt colonic mass or pericolonic inflammation. Appendix is within normal limits. No pneumatosis intestinalis, portal venous gas, or pneumoperitoneum. Postsurgical changes of ventral abdominal wall hernia repair have occurred since prior CT. There is nonspecific fat stranding/inflammation of the midline abdominal subcutaneous soft tissues without rim-enhancing fluid collection to suggest abscess. No soft tissue emphysema. No acute osseous abnormality. IMPRESSION: Ill-defined ventral abdominal wall subcutaneous soft tissue phlegmon versus postsurgical changes. No drainable abscess. Enlarged prostate. Colonic diverticulosis without diverticulitis. ELECTRONICALLY SIGNED BY: Cole Villa, DO Normal Not Available CNOVon 06-23-2023 CNOV Office Visit (OTOLLN ) VASILE YOUSSEF ([id number]) 1955 Date Time Provider Department 06/23/23 3:30 PM MARTINEZ KAUR During your visit today, we recorded the following information about you: Temperature 98.4 degrees Martinez Kaur PA-C 06/23/2023 3:26 PM Signed [facility] NOTE CC: Vasile Youssef is a 67 year old male who is self referred for ear concerns. ASSESSMENT: Wears hearing aid in both ears Etd (eustachian tube dysfunction), bilateral Environmental and seasonal allergies Bilateral hearing loss, unspecified hearing loss type (primary encounter diagnosis) Referred otalgia of both ears PLAN: - Ordered hearing test with tympanometry for further evaluation of hearing, underlying etiology of tinnitus - Trial of Flonase; instructed patient on appropriate use, side effects and need for daily adherence to realize benefits - Aggressive allergy management, avoidance of allergic triggers, daily oral antihistamine, nasal saline rinses - Warm compress, gentle massage, analgesia as needed, soft diet advised, avoid clenching or grinding teeth; make appointment with a dentist who specializes in TMJ for further treatment, oral appliance if indicated - Advised patient on red flag warning signs, symptoms that warrant immediate evaluation in ER - Follow up after hearing test; sooner if clinically indicated Martinez Kaur PA-C [facility] HPI: 67 year old male presents to clinic for evaluation of ear concerns. Patient reports decreased hearing over the last 2 weeks. Patient initially went to [facility] to have hearing aids checked and was told they were working correctly. On examination, patient reports he was told he had puffiness or fluid in ear drums and needed to see ENT. Patient reports he experienced similar symptoms last year when flying to [place], resolved a few days after completion of travel. Today, patient reports bilateral ear congestion, nasal congestion worst in the morning. Patient reports trial of Claritin with temporary improvement of symptoms. Patient endorses hearing loss, has been wearing hearing aids for 5+ years, intermittent tinnitus. Patient reports last hearing test 6 months ago. Patient endorses history of ear infections, no PE tubes. Patient endorses history of seasonal and environmental allergies, last Allergy evaluation 20+ years ago and currently scheduled for new evaluation. 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 Patient accompanied by spouse during entirety of visit today. Past medical history: PAST MEDICAL HISTORY Diagnosis Date NEGATIVE MEDICAL HISTORY Past surgical history: PAST SURGICAL HISTORY Procedure Laterality Date ARTHROSCOPY KNEE DIAGNOSTIC W/WO SYNOVIAL BX SPX 2008 left Arthroscopy, knee Current medication(s): Current Outpatient Medications Medication Sig fluticasone (FLONASE ALLERGY RELIEF) 50 mcg/actuation nasal spray Use 1 [place] in each nostril twice daily. amitriptyline 100 mg ORAL tablet Take 100 mg by mouth daily at bedtime. Aspirin 81 mg ORAL Tab Take 81 mg by mouth. rosuvastatin (CRESTOR) 20 mg ORAL tablet Take 1 tablet by mouth daily at bedtime. multivitamin (DAILY MULTIPLE) ORAL tablet Take 1 tablet by mouth once daily. No current facility-administered medications for this visit. Allergies: ALLERGIES No Known Allergies Social history: Social History Tobacco Use Smoking status: Every Day Packs/day: 0.10 Years: 20.00 Additional pack years: 0.00 Total pack years: 2.00 Types: Cigarettes Smokeless tobacco: Never Substance Use Topics Alcohol use: No Drug use: No Family history: FAMILY HISTORY Problem Relation Age of Onset None Mother Heart Father 47 mi There are no exam notes on file for this visit. ROS: CONSTITUTIONAL: No fevers, chills, nightsweats, unintended weight loss HEAD: - headaches, - head injury EYES: - glasses/contact lens, - changes in vision, - diplopia, - blurry vision, - floaters EARS: + hearing loss, + change in hearing, + tinnitus, + otalgia, - ear pressure, + ear congestion, - otorrhea, + itching, - autophony, + ear infections, - PE tubes NOSE AND SINUSES: + nasal congestion, + rhinorrhea, - PND, - epistaxis, - sense of smell, - history of nasal polyps, - sinus trouble, - sinus pressure, - sinus pain MOUTH AND THROAT: - soreness, - dryness, - ulcers, - sore throat, - hoarseness, - change in voice, - teeth (caries, dentures, extractions, abscesses) NECK: - neck lumps, - goiter, + neck pain, - swollen lymph nodes or glands PULM: No dyspnea, unexplained cough CV: No chest pain, shortness of breath, leg swelling, or palpitations PSYCH: No concerns regarding depression, anxiety or panic PHYSICAL EXAM: GENERAL: 67 year old male i (more content not included)... Normal [facility] community outreach ABIon 06-22-2023 [facility] outreach MONY [facility] Main [place] [id number] Ultrasound Report Signed Patient: Vasile Youssef MR#: [id number] 2 : 1955 Acct:[id number] Age/Sex: 67 / M ADM Date: 06/22/23 Loc: RH Room: Type: REG REF Attending : Sander Daniels Ordering Provider: SANDER DANIELS Date of Service: 06/22/23 /[facility] outreach MONY: SCREENING Copies to: [facility] LOWER EXTREMITY SEGMENTAL ARTERIAL DOPSCAN (PVR) INDICATION: Nearly outreach screening program. PROCEDURE: Right arm blood pressure is 139 , left is 118 . Pressures at the right ankle are 139 with ankle-brachial index of 1.00. Pressures at the left ankle are 135 with ankle-brachial index of 0.97. Wave forms by plethysmography are normal. /[facility] MONY IMPRESSION: No HEMODYNAMICALLY SIGNIFICANT PERIPHERAL VASCULAR OCCLUSIVE DISEASE AT REST IN EITHER LOWER EXTREMITY. Impression dictated by: Bimal Salinas MD06/22/2023 3:17 PM Dictation Location: [place] [address] Tech: Tracy Fermin Transcribed By: BRENDON 06/22/23 151 Dictated By: Bimal Salinas MD 06/22/23 1515 Signed By: 06/22/23 1517 Normal [facility] outreach aortao n 06-22-2023 [facility] outreach aorta [place] [id number] Ultrasound Report Signed Patient: Vasile Youssef MR#: [id number] 2 : 1955 Acct:[id number] Age/Sex: 67 / M ADM Date: 06/22/23 Loc: RH Room: Type: REG REF Attending : Sander Daniels Ordering Provider: SANDER DANIELS Date of Service: 06/22/23 /[facility] outreach aorta: SCREENING Copies to: [facility] SCREENING ULTRASOUND OF THE ABDOMINAL AORTA COMPARISON: None Real-time ultrasound evaluation of the abdominal aorta was performed. The proximal aorta is not visualized due to overlying bowel gas. Through the midsegment, the aorta measure 1.9 cm and the width is 2.2 cm. Distally, the diameter measures 1.7 cm and the width measures 2.1 cm. No aneurysm is seen. The bifurcation is visualized and the iliac arteries are normal caliber. There is no periaortic fluid. US/[facility] outreach aorta IMPRESSION: NO AORTIC ANEURYSM. HOWEVER, THE PROXIMAL AORTA IS NOT VISUALIZED DUE TO OVERLYING BOWEL GAS. Impression dictated by: Jonathon Jay M.D.06/22/2023 9:17 PM Dictation Location: [place] [address] Tech: Sharlnee Levi Transcribed By: BRENDON 06/22/232116 Dictated By: Jonathon Jay II, MD 06/22/232115 Signed By: 06/22/232116 [facility] outreach caroti don 06-22-2023 [facility] outreach carotid [facility] [place] [address] Ultrasound Report Signed Patient: Vasile Youssef MR#: [id number] 2 : 1955 Acct:[id number] Age/Sex: 67 / M ADM Date: 06/22/23 Loc: Room: Type: [facility] Attending Dr: Sander [facility] Ordering Provider: SANDER DANIELS Date of Service: 06/22/23 US/[facility] outreach carotid: SCREENING Copies to: [facility] CAROTID DUPLEX INDICATION: Critical access hospital screening program PROCEDURE: Color-flow duplex scanning is used to interrogate the extracranial carotid arterial system for screening purposes. The proximal right internal carotid artery shows a highest peak systolic velocity of 70.8 cm/s with an end-diastolic velocity of 19.9 cm/s . The mid internal carotid artery measures 64.3 cm/s peak systolic with an end diastolic velocity of 36.1 cm/s . The distal segment measures 71.3 cm/s peak systolic with an end diastolic velocity of 43.4 cm/s . The velocities of the right common carotid artery are 129 cm/s peak systolic and 31.2 cm/s end-diastolic and 104 cm/s peak systolic and 29.5 cm/s end diastolic distally. The peak systolic velocity ratio of the internal to the common carotid artery is 0.55 . The proximal left internal carotid artery shows a highest peak systolic velocity of 91.3 cm/s with an end-diastolic velocity of 21.7 cm/s . The mid internal carotid artery measures 93.8 cm/s peak systolic with an end diastolic velocity of 45.4 cm/s . The distal segment measures 56.5 cm/s peak systolic with an end diastolic velocity of 26.9 cm/s . The velocities of the left common carotid artery are 107 cm/s peak systolic and 29.5 cm/s end-diastolic and 130 cm/s peak systolic and 52 cm/s end diastolic distally. The peak systolic velocity ratio of the internal to the common carotid artery is 0.72 . US/ community outreach carotid IMPRESSION: Normal study. Impression dictated by: Bimal Salinas MD06/22/2023 3:15 PM Dictation Location: [place] [address] Tech: Sharlene Gurmeet Transcribed By: BRENDON 06/22/23 1515 Dictated By: Bimal Salinas MD 06/22/23 1502 Signed By: 06/22/23 1515 Normal [facility] PSA Diagnostic (Total Free)o n 06-17-2023 Prostate Spec Ag, Free 0.900 ng/mL Normal [facility] Comment on above: Order Comment: Reaso n for Exam Elevated PSA Performed By: #### P SATF ####[facility] [id number] PSA Total (Not a Screen) 6.020 ng/mL High 0.000-4.000 [facility] Comment on above: Order Comment: Reaso n for Exam Elevated PSA Performed By: #### P SATF ####[facility] [id number] PSA,FREE% 14.9 % Normal [facility] Comment on above: Order Comment: Reaso n for Exam Elevated PSA Result Comment: Base d on the work of Chasity et al.MAGGIE. 279(19):1542:47.1998 the percent free PSA may be used to determine the relative risk of prostate cancer in individual men.The percent probability of prostate cancer by patient age for men with non-suspicious VIPIN results and total PSa between 4 and 10 ng/ml is as follows: % Free PSA 50 - 64 yrs. 65 - 75 yrs. 0 - 10 56% 55% 10 - 15 24% 35% 15 - 20 17% 23% 20 - 25 10% 20% >25 5% 9% PERFORMED BY: [facility] [address] [place] [address] PATHOLOGIST [employer] VANESSA AWAD M.D. Performed By: #### P [facility] ####[facility] [id number] [place] [address] [facility] PSA Diagnostic (Total & Free )on 06-17-2023 PSA Diagnostic (Total & Free) 6.020 ng/mL High 0.000-4.000 ng/mL [facility] [employer] Other PSA Diagnostic (Total & Free) 0.900 ng/mL [employer] Other PSA Diagnostic (Total & Free) 14.9 % [employer] Other Prostate Specific Ag Free [M ass/volume] in Serum or PlasmaOrdered By: Nasrin Watson on 06-17-2023 Free PSA [Mass/Vol] 0.900 ng/mL [facility] Prostate specific Ag [Mass/v olume] in Serum or PlasmaOrdered By: Nasrin Watson on 06-17-2023 Prostate specific Ag [Mass/Vol] 6.020 ng/mL 0.000-4.000 [facility] Serum or plasma free prostat e specific antigen (PSA)/total PSA ratioOrdered By: Nasrin Watson on 06-17-2023 Free PSA/Total PSA [Mass fraction] 14.9 % [facility] Comment on above: Based on the work of Chasity et al.MAGGIE. 279(19):1542:47.1998 the percent free PSA may be used to determine the relative risk of prostate cancer in individual men.The percent probability of prostate cancer by patient age for men with non-suspicious VIPIN results and total PSa between 4 and 10 ng/ml is as follows:% Free PSA 50 - 64 yrs. 65 - 75 yrs. 0 - 10 56% 55% 10 - 15 24% 35% 15 - 20 17% 23% 20 - 25 10% 20% >25 5% 9% Alanine aminotransferase [En zymatic activity/volume] in Serum or PlasmaOrdered By: Nasrin Watson on 05-31-2023 ALT [Catalytic activity/Vol] 20 U/L 7-52 [facility] Albumin [Mass/volume] in Ser um or Plasma by Bromocresol green (BCG) dye binding methoOrdered By: Nasrin Watson on 05-31-2023 Albumin BCG dye [Mass/Vol] 4.4 g/dL 3.5-5.7 [facility] Alkaline phosphatase [Enzyma tic activity/volume] in Serum or PlasmaOrdered By: Nasrin Watson on 05-31-2023 ALP [Catalytic activity/Vol] 66 U/L 34-104 [facility] Aspartate aminotransferase [ Enzymatic activity/volume] in Serum or PlasmaOrdered By: Nasrin Watson on 05-31-2023 AST [Catalytic activity/Vol] 20 U/L 13-39 [facility] Basophils Auto (Bld) [#/Vol] Ordered By: Nasrin Watson on 05-31-2023 Basophils (Bld) [#/Vol] 0.0 10*3/uL 0.0-0.2 [facility] Basophils/100 WBC Auto (Bld) Ordered By: Nasrin Watson on 05-31-2023 Basophils/100 WBC (Bld) 0.6 % . F [facility] Bilirubin.total [Mass/volume ] in Serum or PlasmaOrdered By: Nasrin Watson on 05-31-2023 Bilirubin [Mass/Vol] 0.8 mg/dL 0.3-1.0 [facility] Calcium [Mass/volume] in Ser um or PlasmaOrdered By: Nasrin Watson on 05-31-2023 Calcium [Mass/Vol] 9.5 mg/dL 8.6-10.3 [facility] Carbon dioxide, total [Moles /volume] in Serum or PlasmaOrdered By: Nasrin Watson on 05-31-2023 CO2 [Moles/Vol] 24.7 mmol/L 21.0-31.0 [facility] Chloride [Moles/volume] in S deion or PlasmaOrdered By: Nasrin Watson 05-31-2023 Chloride [Moles/Vol] 109 mmol/L 98-107 [facility] Cholesterol [Mass/volume] in Serum or PlasmaOrdered By: Nasrin Watson on 05-31-2023 Cholesterol [Mass/Vol] 176 mg/dL 140-200 [facility] Comment on above: Chol less than 200 m g/dl low riskChol 201-239 mg/dl borderline riskChol 240 mg/dl and greater high risk Cholesterol in LDL Calc [Mas s/Vol]Ordered By: Nasrin Watson on 05-31-2023 Cholesterol in LDL [Mass/Vol] 106 mg/dL 0-100 [facility] Comment on above: LDL ATP III CLASSIFI CATIONLDL less than 100 mg/dL OptimalLDL 100-129 mg/dL Near or above optimalLDL 130-159 mg/dL Borderline highLDL 160-189 mg/dL HighLDL greater than 189 mg/dL Very high Cholesterol in VLDL Calc [Ma ss/Vol]Ordered By: Nasrin Watson on 05-31-2023 Cholesterol in VLDL [Mass/Vol] 21 mg/dL [facility] Complete Blood Count Auto Di ffon 05-31-2023 Basophils (Bld) [#/Vol] 0.0 10*3/uL Normal 0.0-0.2 [facility] Comment on above: Order Comment: Reaso n for Exam Hyperlipidemia Result Comment: PERF ORMED BY: [facility] [address] [facility] [place] [address] PATHOLOGIST [employer] VANESSA AWAD M.D. Performed By: #### C BC #### [facility] [address] [place] [address] [place] Basophils/100 WBC (Bld) 0.6 % Normal . [facility] Comment on above: Order Comment: Reaso n for Exam Hyperlipidemia Performed By: #### C BC #### [facility] [address] [place] [id number] [place] Eosinophils (Bld) [#/Vol] 0.6 10*3/uL High 0.0-0.45 [facility] Comment on above: Order Comment: Reaso n for Exam Hyperlipidemia Performed By: #### C BC #### [facility] [address] [place] [id number] [place] Eosinophils/100 WBC (Bld) 10.6 % Normal . [facility] Comment on above: Order Comment: Reaso n for Exam Hyperlipidemia Performed By: #### C BC #### [address] Erythrocyte distribution width (RBC) [Ratio] 14.2 % Normal 12.0-14.8 [facility] Comment on above: Order Comment: Reaso n for Exam Hyperlipidemia Performed By: #### C BC #### [address] Hematocrit (Bld) [Volume fraction] 44.8 % Normal 38.8-50.0 [facility] Comment on above: Order Comment: Reaso n for Exam Hyperlipidemia Performed By: #### C BC #### [address] Hemoglobin (Bld) [Mass/Vol] 14.8 g/dL Normal 13.0-17.0 [facility] Comment on above: Order Comment: Reaso n for Exam Hyperlipidemia Performed By: #### C BC #### [address] Lymphocytes (Bld) [#/Vol] 0.8 10*3/uL Low 1.00-4.8 [facility] Comment on above: Order Comment: Reaso n for Exam Hyperlipidemia Performed By: #### C BC #### [place] [address] [place] Lymphocytes/100 WBC (Bld) 14.6 % Normal . [facility] Comment on above: Order Comment: Reaso n for Exam Hyperlipidemia Performed By: #### C BC #### [place] [address] [place] MCH (RBC) [Entitic mass] 29.1 pg Normal 27.5-35.2 [facility] Comment on above: Order Comment: Reaso n for Exam Hyperlipidemia Performed By: #### C BC #### [place] [address] [place] MCV (RBC) [Entitic vol] 87.7 fL Normal 83.5-101 [facility] Comment on above: Order Comment: Reaso n for Exam Hyperlipidemia Performed By: #### C BC #### [address] Mean Corpuscular HGB Conc 33.2 g/dL Normal 32.5-35.6 [facility] Comment on above: Order Comment: Reaso n for Exam Hyperlipidemia Performed By: #### C BC #### [address] Monocytes (Bld) [#/Vol] 0.6 10*3/uL Normal 0.0-0.8 [facility] Comment on above: Order Comment: Reaso n for Exam Hyperlipidemia Performed By: #### C BC #### [address] Monocytes/100 WBC (Bld) 10.9 % Normal . [facility] Comment on above: Order Comment: Reaso n for Exam Hyperlipidemia Performed By: #### C BC #### [address] Neutrophils (Bld) [#/Vol] 3.7 10*3/uL Normal 1.8-7.7 [facility] Comment on above: Order Comment: Reaso n for Exam Hyperlipidemia Performed By: #### C BC #### [address] Neutrophils/100 WBC (Bld) 63.3 % Normal . [facility] Comment on above: Order Comment: Reaso n for Exam Hyperlipidemia Performed By: #### C BC #### [place] [address] [place] NRBC% 0.2 /100{WBC} Normal 0-0.5 [facility] Comment on above: Order Comment: Reaso n for Exam Hyperlipidemia Performed By: #### C BC #### [address] Platelet mean volume (Bld) [Entitic vol] 7.9 fL Normal 6.6-10.1 [facility] Comment on above: Order Comment: Reaso n for Exam Hyperlipidemia Performed By: #### C BC #### [address] [place] [address] [place] Platelets (Bld) [#/Vol] 247 10*3/uL Normal 150-450 [facility] Comment on above: Order Comment: Reaso n for Exam Hyperlipidemia Performed By: #### C BC #### [facility] [address] RBC (Bld) [#/Vol] 5.10 10*6/uL Normal 3.90-5.60 [facility] Comment on above: Order Comment: Reaso n for Exam Hyperlipidemia Performed By: #### C BC #### [facility] [address] WBC (Bld) [#/Vol] 5.8 10*3/uL Normal 4.1-10.5 [facility] Comment on above: Order Comment: Reaso n for Exam Hyperlipidemia Performed By: #### C BC #### [address] Comprehensive Metabolic Pane sanchez 05-31-2023 Albumin [Mass/Vol] 4.4 g/dL Normal 3.5-5.7 [facility] Comment on above: Order Comment: Reaso n for Exam Hyperlipidemia Performed By: #### L IPID, CMP, TSH3 #### [address] Albumin/Globulin [Mass ratio] 1.8 {ratio} Normal [facility] Comment on above: Order Comment: Reaso n for Exam Hyperlipidemia Performed By: #### L IPID, CMP, TSH3 #### [address] ALP [Catalytic activity/Vol] 66 U/L Normal 34-104 [facility] Comment on above: Order Comment: Reaso n for Exam Hyperlipidemia Performed By: #### L IPID, CMP, TSH3 #### [place] [id number] [facility] ALT [Catalytic activity/Vol] 20 U/L Normal 7-52 [facility] Comment on above: Order Comment: Reaso n for Exam Hyperlipidemia Performed By: #### L IPID, CMP, TSH3 #### [facility] [address] [place] [id number] [place] Anion gap [Moles/Vol] 11.7 mmol/L Normal 6.0-15.0 [facility] Comment on above: Order Comment: Reaso n for Exam Hyperlipidemia Performed By: #### L IPID, CMP, TSH3 #### [facility] [address] [place] [id number] [place] AST [Catalytic activity/Vol] 20 U/L Normal 13-39 [facility] Comment on above: Order Comment: Reaso n for Exam Hyperlipidemia Performed By: #### L IPID, CMP, TSH3 #### [facility] [address] Bilirubin [Mass/Vol] 0.8 mg/dL Normal 0.3-1.0 [facility] Comment on above: Order Comment: Reaso n for Exam Hyperlipidemia Performed By: #### L IPID, CMP, TSH3 #### [facility] [address] Calcium [Mass/Vol] 9.5 mg/dL Normal 8.6-10.3 [facility] Comment on above: Order Comment: Reaso n for Exam Hyperlipidemia Performed By: #### L IPID, CMP, TSH3 #### [facility] [address] [id number] [place] Chloride [Moles/Vol] 109 mmol/L High 98-107 [facility] Comment on above: Order Comment: Reaso n for Exam Hyperlipidemia Performed By: #### L IPID, CMP, TSH3 #### [facility] [address] [id number] [place] CO2 [Moles/Vol] 24.7 mmol/L Normal 21.0-31.0 [facility] Comment on above: Order Comment: Reaso n for Exam Hyperlipidemia Performed By: #### L IPID, CMP, TSH3 #### [facility] [address] Creatinine [Mass/Vol] 1.17 mg/dL Normal 0.70-1.30 [facility] Comment on above: Order Comment: Reaso n for Exam Hyperlipidemia Performed By: #### L IPID, CMP, TSH3 #### [facility] [address] [place] [address] [place] GFR/1.73 sq M.predicted MDRD (S/P/Bld) [Vol rate/Area] mL/min/{1.73_m2} Normal [facility] Comment on above: Order Comment: Reaso n for Exam Hyperlipidemia Performed By: #### L IPID, CMP, TSH3 #### [facility] [address] Globulin (S) [Mass/Vol] 2.5 g/dL Normal F [facility] Comment on above: Order Comment: Reaso n for Exam Hyperlipidemia Performed By: #### L IPID, CMP, TSH3 #### [facility] [address] Glucose [Mass/Vol] 90 mg/dL Normal 70-100 [facility] Comment on above: Order Comment: Reaso n for Exam Hyperlipidemia Result Comment: [place] Glucose Reference Range is dependent on time and content of last meal. Glucose of more than 200 mg/dL in a nonstressed, ambulatory subject supports the diagnosis of Diabetes Mellitus. ADA recommended reference range Performed By: #### L IPID, CMP, TSH3 #### [facility] [address] [id number] [place] Potassium [Moles/Vol] 4.4 mmol/L Normal 3.5-5.1 [facility] Comment on above: Order Comment: Reaso n for Exam Hyperlipidemia Performed By: #### L IPID, CMP, TSH3 #### [facility] [address] [id number] [place] Protein [Mass/Vol] 6.9 g/dL Normal 6.4-8.9 [facility] Comment on above: Order Comment: Reaso n for Exam Hyperlipidemia Performed By: #### L IPID, CMP, TSH3 #### [facility] [address] [id number] [place] Sodium [Moles/Vol] 141 mmol/L Normal 136-145 [facility] Comment on above: Order Comment: Reaso n for Exam Hyperlipidemia Performed By: #### L IPID, CMP, TSH3 #### [facility] [address] [place] [address] [place] Urea nitrogen [Mass/Vol] 20 mg/dL Normal 7-25 [facility] Comment on above: Order Comment: Reaso n for Exam Hyperlipidemia Performed By: #### L IPID, CMP, TSH3 #### [facility] [address] [id number] [place] Creatinine [Mass/volume] in Serum or PlasmaOrdered By: Nasrin Watson on 05-31-2023 Creatinine [Mass/Vol] 1.17 mg/dL 0.70-1.30 [facility] Eosinophils Auto (Bld) [#/Vo l]Ordered By: Nasrin Watson on 05-31-2023 Eosinophils (Bld) [#/Vol] 0.6 10*3/uL 0.0-0.45 [facility] Eosinophils/100 WBC Auto (Bl d)Ordered By: Nasrin Watson on 05-31-2023 Eosinophils/100 WBC (Bld) 10.6 % . [facility] Erythrocyte distribution wid th Auto (RBC) [Ratio]Ordered By: Nasrin Watson on 05-31-2023 Erythrocyte distribution width (RBC) [Ratio] 14.2 % 12.0-14.8 [facility] Globulin Calc (S) [Mass/Vol] Ordered By: Nasrin Watson on 05-31-2023 Globulin (S) [Mass/Vol] 2.5 g/dL [facility] Glucose [Mass/volume] in Ser um or PlasmaOrdered By: Nasrin Watson on 05-31-2023 Glucose [Mass/Vol] 90 mg/dL 70-100 [facility] Comment on above: ADA recommended refe rence rangeRandom Glucose Reference Range is dependent on time and content of last meal. Glucose of more than 200 mg/dL in a nonstressed, ambulatory subject supports the diagnosis of Diabetes Mellitus. Hematocrit Auto (Bld) [Volum e fraction]Ordered By: Nasrin Watsno on 05-31-2023 Hematocrit (Bld) [Volume fraction] 44.8 % 38.8-50.0 [facility] Hemoglobin [Mass/volume] in BloodOrdered By: Nasrin Watson on 05-31-2023 Hemoglobin (Bld) [Mass/Vol] 14.8 g/dL 13.0-17.0 [facility] Leukocytes [#/volume] correc james for nucleated erythrocytes in Blood by Automated counOrdered By: Nasrin Watson on 05-31-2023 WBC corrected for nucl RBC Auto (Bld) [#/Vol] 5.8 10*3/uL 4.1-10.5 [facility] Lipid Panelon 05-31-2023 Cholesterol [Mass/Vol] 176 mg/dL Normal 140-200 [facility] Comment on above: Order Comment: Reaso n for Exam Hyperlipidemia Result Comment: Chol less than 200 mg/dl low risk Chol 201-239 mg/dl borderline risk Chol 240 mg/dl and greater high risk Performed By: #### L IPID, CMP, TSH3 #### [facility] [address] [id number] [place] Cholesterol in HDL [Mass/Vol] 48 mg/dL Normal 23-92 [facility] Comment on above: Order Comment: Reaso n for Exam Hyperlipidemia Result Comment: HDL CHOL ATP-III CLASSIFICATION Cardiovascular Risk HDL > or equal to 60 mg/dL LOW HDL < 40 mg/dL HIGH Performed By: #### L IPID, CMP, TSH3 #### [facility] [address] [place] [address] [place] Cholesterol.total/Yasmeen sterol in HDL [Mass ratio] 3.7 {ratio} Normal <5.0 [facility] Comment on above: Order Comment: Reaso n for Exam Hyperlipidemia Performed By: #### L IPID, CMP, TSH3 #### [facility] [address] [place] [address] [place] LDL Cholesterol,Calculated 106 mg/dL High 0-100 [facility] Comment on above: Order Comment: Reaso n for Exam Hyperlipidemia Result Comment: LDL ATP III CLASSIFICATION LDL less than 100 mg/dL Optimal LDL 100-129 mg/dL Near or above optimal LDL 130-159 mg/dL Borderline high LDL 160-189 mg/dL High LDL greater than 189 mg/dL Very high Performed By: #### L IPID, CMP, TSH3 #### [facility] [address] [id number] [place] Triglyceride w/Reflex 109 mg/dL Normal 0-149 [facility] Comment on above: Order Comment: Reaso n for Exam Hyperlipidemia Result Comment: TRIG ATP III CLASSIFICATION TRIG less than 150 mg/dL Normal TRIG 150-199 mg/dL Borderline high TRIG 200-500 mg/dL High TRIG greater than 500 mg/dL Very high Standard traceable to the Center for Disease Conrtrol and Prevention (CDC) test method. Performed By: #### L IPID, CMP, TSH3 #### [facility] [address] VLDL CHOLESTEROL 21 mg/dL Normal [facility] Comment on above: Order Comment: Reaso n for Exam Hyperlipidemia Performed By: #### L IPID, CMP, TSH3 #### [facility] [address] [place] [address] [place] Lymphocytes Auto (Bld) [#/Vo l]Ordered By: Nasrin Watson on 05-31-2023 Lymphocytes (Bld) [#/Vol] 0.8 10*3/uL 1.00-4.8 [facility] Lymphocytes/100 WBC Auto (Bl d)Ordered By: Nasrin Watson on 05-31-2023 Lymphocytes/100 WBC (Bld) 14.6 % . [facility] MCH Auto (RBC) [Entitic mass ]Ordered By: Nasrin Watson on 05-31-2023 MCH (RBC) [Entitic mass] 29.1 pg 27.5-35.2 [facility] MCHC Auto (RBC) [Mass/Vol]Or dered By: Nasrin Watson on 05-31-2023 MCHC (RBC) [Mass/Vol] 33.2 g/dL 32.5-35.6 [facility] MCV Auto (RBC) [Entitic vol] Ordered By: Nasrin Watson on 05-31-2023 MCV (RBC) [Entitic vol] 87.7 fL 83.5-101 [facility] Monocytes Auto (Bld) [#/Vol] Ordered By: Nasrin Watson on 05-31-2023 Monocytes (Bld) [#/Vol] 0.6 10*3/uL 0.0-0.8 [facility] Monocytes/100 WBC Auto (Bld) Ordered By: Nasrin Watson on 05-31-2023 Monocytes/100 WBC (Bld) 10.9 % . [facility] Neutrophils Auto (Bld) [#/Vo l]Ordered By: Nasrin Watson on 05-31-2023 Neutrophils (Bld) [#/Vol] 3.7 10*3/uL 1.8-7.7 [facility] Neutrophils/100 WBC Auto (Bl d)Ordered By: Nasrin Watson on 05-31-2023 Neutrophils/100 WBC (Bld) 63.3 % . [facility] No Panel InformationOrdered By: Nasrin Watson on 05-31-2023 Estimated GFR (CKD-EPI) > 60.0 mL/Min [facility] Creatinine Clearance (Chem N/A [facility] Nucleated erythrocytes [Pres ence] in Blood by Automated countOrdered By: Nasrin Watson on 05-31-2023 Nucleated RBC Auto Ql (Bld) 0.2 /100{WBC} 0-0.5 [facility] PSA Screen (Yearly Only)on 0 05-31-2023 PSA Screen (Yearly Only) 4.690 ng/mL High 0.000-4.000 [facility] Comment on above: Order Comment: Reaso n for Exam Screening for prostate cancer Is patient <50 yrs? Medicare does not pay <50.: N What is the date of the last PSA Screen?: [id number] Is Medicare the insurance?: Y Did you verify eligibility (Dx Time) check TestViewGp: YES TO ALL Result Comment: PERF ORMED BY: [facility] [address] [place] [address] PATHOLOGIST [employer] VANESSA AWAD M.D. Performed By: #### P SAS ####[facility] [id number] [facility] Platelet mean volume Auto (B ld) [Entitic vol]Ordered By: Nasrin Watson on 05-31-2023 Platelet mean volume (Bld) [Entitic vol] 7.9 fL 6.6-10.1 [facility] Platelets Auto (Bld) [#/Vol] Ordered By: Nasrin Watson on 05-31-2023 Platelets (Bld) [#/Vol] 247 10*3/uL 150-450 [facility] Potassium [Moles/volume] in Serum or PlasmaOrdered By: Nasrin Watson on 05-31-2023 Potassium [Moles/Vol] 4.4 mmol/L 3.5-5.1 [facility] Prostate specific Ag [Mass/v olume] in Serum or PlasmaOrdered By: Nasrin Watson on 05-31-2023 Prostate specific Ag [Mass/Vol] 4.690 ng/mL 0.000-4.000 [facility] Protein [Mass/volume] in Ser um or PlasmaOrdered By: Nasrin Watson on 05-31-2023 Protein [Mass/Vol] 6.9 g/dL 6.4-8.9 [facility] RBC Auto (Bld) [#/Vol]Ordere d By: Nasrin Watson on 05-31-2023 RBC (Bld) [#/Vol] 5.10 10*6/uL 3.90-5.60 [facility] Serum or plasma albumin/glob ulin mass ratioOrdered By: Nasrin Watson on 05-31-2023 Albumin/Globulin [Mass ratio] 1.8 {ratio} [facility] Serum or plasma anion gap de terminationOrdered By: Nasrin Watson on 05-31-2023 Anion gap [Moles/Vol] 11.7 mmol/L 6.0-15.0 [facility] Serum or plasma high density lipoprotein (HDL) cholesterol measurementOrdered By: Nasrin Watson on 05-31-2023 Cholesterol in HDL [Mass/Vol] 48 mg/dL 23-92 [facility] Comment on above: HDL CHOL ATP-III CLA SSIFICATION Cardiovascular RiskHDL > or equal to 60 mg/dL LOWHDL < 40 mg/dL HIGH Serum or plasma total choles terol/high density lipoprotein (HDL) cholesterol mass ratOrdered By: Nasrin Watson on 05-31-2023 Cholesterol.total/Yasmeen sterol in HDL [Mass ratio] 3.7 {ratio} <5.0 [facility] Sodium [Moles/volume] in Ser um or PlasmaOrdered By: Nasrin Watson on 05-31-2023 Sodium [Moles/Vol] 141 mmol/L 136-145 [facility] Thyroid Stimulating Hormoneo n 05-31-2023 TSH Qn 3.48 m[IU]/L Normal 0.45-5.33 [facility] Comment on above: Order Comment: Reaso n for Exam Hyperlipidemia Result Comment: PERF ORMED BY: [facility] [address] [place] [id number] PATHOLOGIST [employer] VANESSA AWAD M.D. Performed By: #### L IPID, CMP, TSH3 ####[facility] [address] [id number] [facility] Thyrotropin [Units/volume] i n Serum or PlasmaOrdered By: Nasrin Watson on 05-31-2023 TSH Qn 3.48 m[IU]/L 0.45-5.33 [facility] Triglyceride [Mass/volume] i n Serum or PlasmaOrdered By: Nasrin Watson on 05-31-2023 Triglyceride [Mass/Vol] 109 mg/dL 0-149 [facility] Comment on above: TRIG ATP III CLASSIF ICATIONTRIG less than 150 mg/dL NormalTRIG 150-199 mg/dL Borderline highTRIG 200-500 mg/dL High TRIG greater than 500 mg/dL Very highStandard traceable to the Center for Disease Conrtrol and Prevention (CDC) test method. Urea nitrogen [Mass/volume] in Serum or PlasmaOrdered By: Nasrin Watson on 05-31-2023 Urea nitrogen [Mass/Vol] 20 mg/dL 7-25 [facility] WBC Auto (Bld) [#/Vol]Ordere d By: Nasrin Watson on 05-31-2023 WBC (Bld) [#/Vol] 5.8 10*3/uL 4.1-10.5 [facility] Sanchez 12-31-2022 L -- ---- Specimen: Received: 12/31/22 Status: KALIA Horne Num: [id number] Spec Type: Surgical Subm Dr: Kameron Marin MD Tissues: A Debridement-Skin/Other Than Skin (POD) B Soft Tissue/Surgical Margin-Other than Tumor,Mass,Lip or Linh (PERIUMBILICAL Procedures: HE/2, Gross/Micro L4, Gross/Micro L3, AE1-AE3/2 ---- Age/ Patient Sex Location Account Attending Physician ---- Vasile Youssef/M [place] [id number] Kameron Marin MD ---- SPEC NUM: [id number] RECD: 12/31/22 STATUS: KALIA HORNE NUM: [id number] JULIO CÉSAR: 12/31/22- SUBM DR: Kameron Marin MD ENTERED: 12/31/[address] [facility] DR: SPEC TYPE: Surgical DEPT: S ORDERED: HE/2, Gross/Micro L4, Gross/Micro L3, AE1-AE3/2 ORDERED: HE/2, Gross/Micro L4, Gross/Micro L3, AE1-AE3/2 Pathological Diagnosis A. Skin and soft tissue, abdomen, debridement: - Skin with acute and chronic inflammation and abscess formation within the subcutaneous tissue and associated fat necrosis. B. Soft tissue, periumbilical mass, biopsy: - Cauterized fibrous tissue. Clinical Information Abdominal wound Gross Description A. Received in formalin labeled with the patient's name, number and products of debridement is a 2.0 x 0.3 cm ellipse of sheldon-white, centrally umbilicated skin excised to a depth of 1.5 cm. Specimen is inked and sectioned. The cut surface is rubbery, yellow-sheldon.. Entirely submitted in one cassette labeled A1. B. Received in formalin labeled with the patient's name, number and periumbilical mass are two sheldon-taylor rubbery tissue measuring 0.9 x 0.7 x 0.4 cm in aggregate. Entirely submitted in one cassette labeled B1. ---- Specimen: [id number] Received: 12/31/22 Status: KALIA Horne Num: [id number] Spec Type: Surgical Subm Dr: Kameron Marin MD Tissues: A Debridement-Skin/Other Than Skin (POD) B Soft Tissue/Surgical Margin-Other than Tumor,Mass,Lip or Linh (PERIUMBILICAL Procedures: HE/2, Gross/Micro L4, Gross/Micro L3, AE1-AE3/2 ---- Patient: Vasile Youssef [id number] (Continued) ---- Specimen: Received: 12/31/22 (Continued) Signed (signature on file) Savanna Serna MD 01/04/231601 ---- Specimen: Received: 12/31/22 Status: KALIA Coleen Num: [id number] Spec Type: Surgical Subm Dr: Kameron Marin MD Tissues: A Debridement-Skin/Other Than Skin (POD) B Soft Tissue/Surgical Margin-Other than Tumor,Mass,Lip or Linh (PERIUMBILICAL Procedures: HE/2, Gross/Micro L4, Gross/Micro L3, AE1-AE3/2 ---- Patient: Vasile Youssef [id number] (Continued) ---- Specimen: Received: 12/31/22 (Continued) Microscopic Description A. One glass slide with H E stained material has been examined. The microscopic findings support the above pathologic diagnosis. Pancytokeratin immunostain is negative for neoplastic epithelial cells. Pancytokeratin is negative for epithelial neoplastic cells. B. One glass slide with H E stained material has been examined. The microscopic findings support the above pathologic diagnosis. Pancytokeratin immunostain is negative for neoplastic epithelial cells. Pancytokeratin is negative for epithelial neoplastic cells. CPT Codes [id number], 81439, 13409 ---- ---- Specimen: Received: 12/31/22 Status: KALIA Horne Num: [id number] Spec Type: Surgical Subm Dr: Kameron Marin MD Tissues: A Debridement-Skin/Other Than Skin (POD) B Soft Tissue/Surgical Margin-Other than Tumor,Mass,Lip or Linh (PERIUMBILICAL Procedures: HE/2, Gross/Micro L4, Gross/Micro L3, AE1-AE3/2 ---- Patient: Vasile Youssef [id number] (Continued) (more content not included)... Normal [facility] Basic Metabolic Panelon 12-02 Anion gap [Moles/Vol] 13.2 mmol/L Normal 6.0-15.0 [facility] Comment on above: Performed By: #### C BC, BMP #### [place] [address] [place] Calcium [Mass/Vol] 9.6 mg/dL Normal 8.6-10.3 [facility] Comment on above: Result Comment: PERF ORMED BY: [address] [place] [address] PATHOLOGIST [employer] VANESSA AWAD M.D. Performed By: #### C BC, BMP #### [facility] [address] [place] [address] [place] Chloride [Moles/Vol] 107 mmol/L Normal 98-107 [facility] Comment on above: Performed By: #### C BC, BMP #### [facility] [address] [place] [address] [place] CO2 [Moles/Vol] 24.4 mmol/L Normal 21.0-31.0 [facility] Comment on above: Performed By: #### C BC, BMP #### [facility] [address] Creatinine [Mass/Vol] 1.27 mg/dL Normal 0.70-1.30 [facility] Comment on above: Performed By: #### C BC, BMP #### [facility] [address] [place] [address] [place] GFR/1.73 sq M.predicted MDRD (S/P/Bld) [Vol rate/Area] mL/min/{1.73_m2} Normal [facility] Comment on above: Performed By: #### C BC, BMP #### [facility] [address] Glucose [Mass/Vol] 78 mg/dL Normal 74-109 [facility] Comment on above: Result Comment: [facility] Glucose Reference Range is dependent on time and content of last meal. Glucose of more than 200 mg/dL in a nonstressed, ambulatory subject supports the diagnosis of Diabetes Mellitus. ADA recommended reference range Performed By: #### C BC, BMP #### [facility] [address] Potassium [Moles/Vol] 4.6 mmol/L Normal 3.5-5.1 [facility] Comment on above: Performed By: #### C BC, BMP #### [facility] [address] [place] [address] [place] Sodium [Moles/Vol] 140 mmol/L Normal 136-145 [facility] Comment on above: Performed By: #### C BC, BMP #### [facility] [address] [place] [address] [place] Urea nitrogen [Mass/Vol] 22 mg/dL Normal 7-25 [facility] Comment on above: Performed By: #### C BC, BMP #### [facility] [address] [place] [address] [place] Basophils Auto (Bld) [#/Vol] Ordered By: Kameron Marin on 12-18-2022 Basophils (Bld) [#/Vol] 0.0 10*3/uL 0.0-0.2 [facility] Basophils/100 WBC Auto (Bld) Ordered By: Kameron Marin on 12-18-2022 Basophils/100 WBC (Bld) 0.6 % . [facility] Calcium [Mass/volume] in Ser um or PlasmaOrdered By: Kameron Marin on 12-18-2022 Calcium [Mass/Vol] 9.6 mg/dL 8.6-10.3 [facility] Carbon dioxide, total [Moles /volume] in Serum or PlasmaOrdered By: Kameron Marin on 12-18-2022 CO2 [Moles/Vol] 24.4 mmol/L 21.0-31.0 [facility] Chloride [Moles/volume] in S deion or PlasmaOrdered By: Kameron Marin on 12-18-2022 Chloride [Moles/Vol] 107 mmol/L 98-107 [facility] Complete Blood Count Auto Di ffon 12-18-2022 Basophils (Bld) [#/Vol] 0.0 10*3/uL Normal 0.0-0.2 [facility] Comment on above: Result Comment: PERF ORMED BY: [place] [address] PATHOLOGIST [employer] VANESSA AWAD M.D. Performed By: #### C BLANKA, BMP #### [address] Basophils/100 WBC (Bld) 0.6 % Normal . [facility] Comment on above: Performed By: #### C BC, BMP #### [facility] [address] [place] [address] [place] Eosinophils (Bld) [#/Vol] 0.5 10*3/uL High 0.0-0.45 [facility] Comment on above: Performed By: #### C BC, BMP #### [place] [address] [place] Eosinophils/100 WBC (Bld) 9.5 % Normal . [facility] Comment on above: Performed By: #### C BC, BMP #### [facility] [address] Erythrocyte distribution width (RBC) [Ratio] 14.6 % Normal 12.0-14.8 [facility] Comment on above: Performed By: #### C BC, BMP #### [address] Hematocrit (Bld) [Volume fraction] 46.0 % Normal 38.8-50.0 [facility] Comment on above: Performed By: #### C BC, BMP #### [address] Hemoglobin (Bld) [Mass/Vol] 15.2 g/dL Normal 13.0-17.0 [facility] Comment on above: Performed By: #### C BC, BMP #### [address] Lymphocytes (Bld) [#/Vol] 0.8 10*3/uL Low 1.00-4.8 [facility] Comment on above: Performed By: #### C BC, BMP #### [address] Lymphocytes/100 WBC (Bld) 13.8 % Normal . [facility] Comment on above: Performed By: #### C BC, BMP #### [address] MCH (RBC) [Entitic mass] 29.1 pg Normal 27.5-35.2 [facility] Comment on above: Performed By: #### C BC, BMP #### [address] MCV (RBC) [Entitic vol] 87.7 fL Normal 83.5-101 [facility] Comment on above: Performed By: #### C BC, BMP #### [address] Mean Corpuscular HGB Conc 33.2 g/dL Normal 32.5-35.6 [facility] Comment on above: Performed By: #### C BC, BMP #### [address] Monocytes (Bld) [#/Vol] 0.7 10*3/uL Normal 0.0-0.8 [facility] Comment on above: Performed By: #### C BC, BMP #### [facility] [address] Monocytes/100 WBC (Bld) 12.8 % Normal . [facility] Comment on above: Performed By: #### C BC, BMP #### [facility] [address] Neutrophils (Bld) [#/Vol] 3.6 10*3/uL Normal 1.8-7.7 [facility] Comment on above: Performed By: #### C BC, BMP #### [address] Neutrophils/100 WBC (Bld) 63.3 % Normal . [facility] Comment on above: Performed By: #### C BC, BMP #### [address] NRBC% 0.0 /100{WBC} Normal 0-0.5 [facility] Comment on above: Performed By: #### C BC, BMP #### [address] Platelet mean volume (Bld) [Entitic vol] 7.4 fL Normal 6.6-10.1 [facility] Comment on above: Performed By: #### C BC, BMP #### [address] Platelets (Bld) [#/Vol] 280 10*3/uL Normal 150-450 [facility] Comment on above: Performed By: #### C BC, BMP #### [place] [address] [place] RBC (Bld) [#/Vol] 5.24 10*6/uL Normal 3.90-5.60 [facility] Comment on above: Performed By: #### C BC, BMP #### [place] [address] [place] WBC (Bld) [#/Vol] 5.7 10*3/uL Normal 4.1-10.5 [facility] Comment on above: Performed By: #### C BC, JUDIT #### [address] Creatinine [Mass/volume] in Serum or PlasmaOrdered By: Kameron Marin on 12-18-2022 Creatinine [Mass/Vol] 1.27 mg/dL 0.70-1.30 [facility] ECG 12 lead ECGon 12-18-2022 ECG 12 lead ECG [facility] [place] [address] [place] [address] Electrocardiograph Report Signed Patient: Vasile Youssef MR#: [id number] 2 : 1955 Acct:[id number] Age/Sex: 67 / M ADM Date: 12/18/22 Loc: Room: Type: [facility] Attending Dr: Kameron Marin MD Ordering Provider: Kameron Marin MD Date of Service: 12/18/22 ECG/ECG 12 lead ECG: surgery 12/31/22 Copies to: Test Reason : Blood Pressure : / mmHG Vent. Rate : 074 BPM Atrial Rate : 074 BPM P-R Int : 152 ms QRS Dur : 098 ms QT Int : 374 ms P-R-T Axes : 072 -65 010 degrees QTc Int : 415 ms Normal sinus rhythm Left axis deviation Nonspecific T wave abnormality Abnormal ECG When compared with ECG of 25-SEP-2019 12:07, Vent. rate has decreased BY 40 BPM QRS axis shifted left Criteria for Inferior infarct are no longer present Confirmed by JABIER AGUILA DO ([id number]) on 12/18/2022 1:45:23 PM Referred By: TOMAS Electronically Signed By:JABIER AGUILA DO Transcribed By: MUS Signed By Jabier Aguila DO 12/18 1345 Normal [facility] Eosinophils Auto (Bld) [#/Vo l]Ordered By: Kameron Marin on 12-18-2022 Eosinophils (Bld) [#/Vol] 0.5 10*3/uL 0.0-0.45 [facility] Eosinophils/100 WBC Auto (Bl d)Ordered By: Kameron Marin on 12-18-2022 Eosinophils/100 WBC (Bld) 9.5 % . [facility] Erythrocyte distribution wid th Auto (RBC) [Ratio]Ordered By: Kameron Marin on 12-18-2022 Erythrocyte distribution width (RBC) [Ratio] 14.6 % 12.0-14.8 [facility] Glucose [Mass/volume] in Ser um or PlasmaOrdered By: Kameron Marin on 12-18-2022 Glucose [Mass/Vol] 78 mg/dL 74-109 [facility] Comment on above: ADA recommended refe rence rangeRandom Glucose Reference Range is dependent on time and content of last meal. Glucose of more than 200 mg/dL in a nonstressed, ambulatory subject supports the diagnosis of Diabetes Mellitus. Hematocrit Auto (Bld) [Volum e fraction]Ordered By: Kameron Marin on 12-18-2022 Hematocrit (Bld) [Volume fraction] 46.0 % 38.8-50.0 [facility] Hemoglobin [Mass/volume] in BloodOrdered By: Kameron Marin on 12-18-2022 Hemoglobin (Bld) [Mass/Vol] 15.2 g/dL 13.0-17.0 [facility] Laboratory - Chemistry and C hemistry - challengeOrdered By: Kameron Marin on 12-18-2022 GFR/1.73 sq M.predicted MDRD (S/P/Bld) [Vol rate/Area] mL/min/{1.73_m2} [facility] Leukocytes [#/volume] correc james for nucleated erythrocytes in Blood by Automated counOrdered By: Kameron Marin on 12-18-2022 WBC corrected for nucl RBC Auto (Bld) [#/Vol] 5.7 10*3/uL 4.1-10.5 [facility] Lymphocytes Auto (Bld) [#/Vo l]Ordered By: Kameron Marin on 12-18-2022 Lymphocytes (Bld) [#/Vol] 0.8 10*3/uL 1.00-4.8 [facility] Lymphocytes/100 WBC Auto (Bl d)Ordered By: Kameron Marin on 12-18-2022 Lymphocytes/100 WBC (Bld) 13.8 % . [facility] MCH Auto (RBC) [Entitic mass ]Ordered By: Kameron Marin on 12-18-2022 MCH (RBC) [Entitic mass] 29.1 pg 27.5-35.2 [facility] MCHC Auto (RBC) [Mass/Vol]Or dered By: Kameron Marin on 12-18-2022 MCHC (RBC) [Mass/Vol] 33.2 g/dL 32.5-35.6 [facility] MCV Auto (RBC) [Entitic vol] Ordered By: Kameron Marin on 12-18-2022 MCV (RBC) [Entitic vol] 87.7 fL 83.5-101 F [facility] Monocytes Auto (Bld) [#/Vol] Ordered By: Kameron Marin on 12-18-2022 Monocytes (Bld) [#/Vol] 0.7 10*3/uL 0.0-0.8 [facility] Monocytes/100 WBC Auto (Bld) Ordered By: Kameron Marin on 12-18-2022 Monocytes/100 WBC (Bld) 12.8 % . [facility] Neutrophils Auto (Bld) [#/Vo l]Ordered By: Kameron Marin on 12-18-2022 Neutrophils (Bld) [#/Vol] 3.6 10*3/uL 1.8-7.7 [facility] Neutrophils/100 WBC Auto (Bl d)Ordered By: Kameron Marin on 12-18-2022 Neutrophils/100 WBC (Bld) 63.3 % . [facility] No Panel InformationOrdered By: Kameron Marin on 12-18-2022 Pharmacy Creatinine Clearance (Chem N/A [facility] Nucleated erythrocytes [Pres ence] in Blood by Automated countOrdered By: Kameron Marin on 12-18-2022 Nucleated RBC Auto Ql (Bld) 0.0 /100{WBC} 0-0.5 [facility] Platelet mean volume Auto (B ld) [Entitic vol]Ordered By: Kameron Marin on 12-18-2022 Platelet mean volume (Bld) [Entitic vol] 7.4 fL 6.6-10.1 [facility] Platelets Auto (Bld) [#/Vol] Ordered By: Kameron Marin on 12-18-2022 Platelets (Bld) [#/Vol] 280 10*3/uL 150-450 [facility] Potassium [Moles/volume] in Serum or PlasmaOrdered By: Kameron Marin on 12-18-2022 Potassium [Moles/Vol] 4.6 mmol/L 3.5-5.1 [facility] RBC Auto (Bld) [#/Vol]Ordere d By: Kameron Marin on 12-18-2022 RBC (Bld) [#/Vol] 5.24 10*6/uL 3.90-5.60 [facility] Serum or plasma anion gap de terminationOrdered By: Kameron Marin on 12-18-2022 Anion gap [Moles/Vol] 13.2 mmol/L 6.0-15.0 [facility] Sodium [Moles/volume] in Ser um or PlasmaOrdered By: Kameron Marin on 12-18-2022 Sodium [Moles/Vol] 140 mmol/L 136-145 [facility] Urea nitrogen [Mass/volume] in Serum or PlasmaOrdered By: Kameron Marin on 12-18-2022 Urea nitrogen [Mass/Vol] 22 mg/dL 7-25 [facility] WBC Auto (Bld) [#/Vol]Ordere d By: Kameron Marin on 12-18-2022 WBC (Bld) [#/Vol] 5.7 10*3/uL 4.1-10.5 [facility] US abdomen limitedon 023 US abdomen limited [facility] [place] [address] Ultrasound Report Signed Patient: Vasile Youssef MR#: [id number] 2 : 1955 Acct:[id number] Age/Sex: 67 / M ADM Date: 12/08/22 Loc: UL Room: Type: [facility] CLI Attending Dr: Kameron Marin MD Ordering Provider: Kameron Marin MD Date of Service: 12/08/22 US/US abdomen limited: pain, itching and swelling at umbilical area;Pain Copies to: Kameron Marin MD A limited abdominal ultrasound assessing the umbilicus HISTORY: Pain imaging and swelling in the region of scar tissue inferior to the umbilicus. COMPARISON:None There heterogeneous echogenicity involving the region of pain inferior to the umbilicus likely corresponding with residual port tract from prior surgery. This may correspond with small fluid collection containing debris. This measures 3.0 x 0.9 x 0.8 cm. There is no findings to suggest bowel herniation. US/US abdomen limited IMPRESSION: Findings likely representing fluid and debris and previous surgical port. No bowel herniation. No definite abscess. Impression dictated by: Jabier Leblanc M.D.12/08/2022 1:18 PM Dictation Location: [place] [address] Tech: Karlalilibeth Cook Transcribed By: BRENDON 12/08/22 1318 Dictated By: Jabier Leblanc DO 12/08/22 131 Signed By: 12/08/22 1318 Normal [facility] Albumin [Mass/volume] in Ser um or PlasmaOrdered By: Nasrin Watson on 09-30-2022 Albumin [Mass/Vol] 4.2 g/dL 3.2-5.5 [facility] Basophils Auto (Bld) [#/Vol] Ordered By: Nasrin Watson on 09-30-2022 Basophils (Bld) [#/Vol] 0.0 10*3/uL 0.0-0.2 [facility] Basophils/100 WBC Auto (Bld) Ordered By: Nasrin Watson on 09-30-2022 Basophils/100 WBC (Bld) 0.4 % . [facility] Cholesterol [Mass/volume] in Serum or PlasmaOrdered By: Nasrin Watson on 09-30-2022 Cholesterol [Mass/Vol] 181 mg/dL 140-200 [facility] Comment on above: Chol less than 200 m g/dl low riskChol 201-239 mg/dl borderline riskChol 240 mg/dl and greater high risk Cholesterol in LDL Calc [Mas s/Vol]Ordered By: Nasrin Watson on 09-30-2022 Cholesterol in LDL [Mass/Vol] 114 mg/dL 0-100 [facility] Comment on above: LDL ATP III CLASSIFI CATIONLDL less than 100 mg/dL OptimalLDL 100-129 mg/dL Near or above optimalLDL 130-159 mg/dL Borderline highLDL 160-189 mg/dL HighLDL greater than 189 mg/dL Very high Cholesterol in VLDL Calc [Ma ss/Vol]Ordered By: Nasrin Wtason on 09-30-2022 Cholesterol in VLDL [Mass/Vol] 17 mg/dL [facility] Complete Blood Count Auto Di ffon 09-30-2022 Basophils (Bld) [#/Vol] 0.0 10*3/uL Normal 0.0-0.2 [facility] Comment on above: Order Comment: Reaso n for Exam Hyperlipidemia Result Comment: PERF ORMED BY: [place] [address] PATHOLOGIST [employer] VANESSA AWAD M.D. Performed By: #### C BC #### [facility] [address] [place] [address] [place] Basophils/100 WBC (Bld) 0.4 % Normal . [facility] Comment on above: Order Comment: Reaso n for Exam Hyperlipidemia Performed By: #### C BC #### [facility] [address] [place] [address] [place] Eosinophils (Bld) [#/Vol] 0.6 10*3/uL High 0.0-0.45 [facility] Comment on above: Order Comment: Reaso n for Exam Hyperlipidemia Performed By: #### C BC #### [facility] [address] [place] [address] [place] Eosinophils/100 WBC (Bld) 7.9 % Normal . [facility] Comment on above: Order Comment: Reaso n for Exam Hyperlipidemia Performed By: #### C BC #### [facility] [address] [place] [address] [place] Erythrocyte distribution width (RBC) [Ratio] 14.1 % Normal 12.0-14.8 [facility] Comment on above: Order Comment: Reaso n for Exam Hyperlipidemia Performed By: #### C BC #### [facility] [address] Hematocrit (Bld) [Volume fraction] 48.9 % Normal 38.8-50.0 [facility] Comment on above: Order Comment: Reaso n for Exam Hyperlipidemia Performed By: #### C BC #### [address] Hemoglobin (Bld) [Mass/Vol] 15.9 g/dL Normal 13.0-17.0 [facility] Comment on above: Order Comment: Reaso n for Exam Hyperlipidemia Performed By: #### C BC #### [address] Lymphocytes (Bld) [#/Vol] 0.8 10*3/uL Low 1.00-4.8 [facility] Comment on above: Order Comment: Reaso n for Exam Hyperlipidemia Performed By: #### C BC #### [address] Lymphocytes/100 WBC (Bld) 10.9 % Normal . [facility] Comment on above: Order Comment: Reaso n for Exam Hyperlipidemia Performed By: #### C BC #### [address] MCH (RBC) [Entitic mass] 28.9 pg Normal 27.5-35.2 [facility] Comment on above: Order Comment: Reaso n for Exam Hyperlipidemia Performed By: #### C BC #### [address] MCV (RBC) [Entitic vol] 89.1 fL Normal 83.5-101 F [facility] Comment on above: Order Comment: Reaso n for Exam Hyperlipidemia Performed By: #### C BC #### [address] Mean Corpuscular HGB Conc 32.5 g/dL Normal 32.5-35.6 [facility] Comment on above: Order Comment: Reaso n for Exam Hyperlipidemia Performed By: #### C BC #### [address] [place] [address] [place] Monocytes (Bld) [#/Vol] 0.7 10*3/uL Normal 0.0-0.8 [facility] Comment on above: Order Comment: Reaso n for Exam Hyperlipidemia Performed By: #### C BC #### [facility] [address] [place] [id number] [facility] Monocytes/100 WBC (Bld) 9.3 % Normal . [facility] Comment on above: Order Comment: Reaso n for Exam Hyperlipidemia Performed By: #### C BC #### [facility] [address] [place] [address] [place] Neutrophils (Bld) [#/Vol] 5.2 10*3/uL Normal 1.8-7.7 [facility] Comment on above: Order Comment: Reaso n for Exam Hyperlipidemia Performed By: #### C BC #### [facility] [address] [place] [address] [place] Neutrophils/100 WBC (Bld) 71.5 % Normal . [facility] Comment on above: Order Comment: Reaso n for Exam Hyperlipidemia Performed By: #### C BC #### [facility] [address] [place] [address] [place] NRBC% 0.1 /100{WBC} Normal 0-0.5 [facility] Comment on above: Order Comment: Reaso n for Exam Hyperlipidemia Performed By: #### C BC #### [facility] [address] [place] [address] [place] Platelet mean volume (Bld) [Entitic vol] 7.7 fL Normal 6.6-10.1 [facility] Comment on above: Order Comment: Reaso n for Exam Hyperlipidemia Performed By: #### C BC #### [facility] [address] [place] [id number] [place] Platelets (Bld) [#/Vol] 293 10*3/uL Normal 150-450 [facility] Comment on above: Order Comment: Reaso n for Exam Hyperlipidemia Performed By: #### C BC #### [facility] [address] [place] [address] [place] RBC (Bld) [#/Vol] 5.49 10*6/uL Normal 3.90-5.60 [facility] Comment on above: Order Comment: Reaso n for Exam Hyperlipidemia Performed By: #### C BC #### [facility] [address] WBC (Bld) [#/Vol] 7.2 10*3/uL Normal 4.1-10.5 [facility] Comment on above: Order Comment: Reaso n for Exam Hyperlipidemia Performed By: #### C BC #### [facility] [address] Comprehensive Metabolic Pane sanchez 09-30-2022 Albumin [Mass/Vol] 4.2 g/dL Normal 3.2-5.5 [facility] Comment on above: Order Comment: Reaso n for Exam Hyperlipidemia Performed By: #### T SH3, LIPID, CMP ####[address] Albumin/Globulin [Mass ratio] 1.4 {ratio} Normal [facility] Comment on above: Order Comment: Reaso n for Exam Hyperlipidemia Performed By: #### T SH3, LIPID, CMP ####[address] ALP [Catalytic activity/Vol] 68 U/L Normal 32-92 [facility] Comment on above: Order Comment: Reaso n for Exam Hyperlipidemia Performed By: #### T SH3, LIPID, CMP ####[place] [id number] [facility] ALT [Catalytic activity/Vol] 28 U/L Normal 10-60 [facility] Comment on above: Order Comment: Reaso n for Exam Hyperlipidemia Performed By: #### T SH3, LIPID, CMP ####[place] [id number] [facility] Anion gap [Moles/Vol] 12.5 mmol/L Normal 6.0-15.0 [facility] Comment on above: Order Comment: Reaso n for Exam Hyperlipidemia Performed By: #### T SH3, LIPID, CMP ####[address] [place] [address] [facility] AST [Catalytic activity/Vol] 23 U/L Normal 10-42 [facility] Comment on above: Order Comment: Reaso n for Exam Hyperlipidemia Performed By: #### T SH3, LIPID, CMP ####[address] [address] [facility] Bilirubin [Mass/Vol] 0.8 mg/dL Normal 0.3-1.2 [facility] Comment on above: Order Comment: Reaso n for Exam Hyperlipidemia Performed By: #### T SH3, LIPID, CMP ####[address] [address] [facility] Calcium [Mass/Vol] 9.5 mg/dL Normal 8.2-10.2 [facility] Comment on above: Order Comment: Reaso n for Exam Hyperlipidemia Performed By: #### T SH3, LIPID, CMP ####[address] [address] [facility] Chloride [Moles/Vol] 105 mmol/L Normal 95-114 [facility] Comment on above: Order Comment: Reaso n for Exam Hyperlipidemia Performed By: #### T SH3, LIPID, CMP ####[address] [address] [facility] CO2 [Moles/Vol] 26.8 mmol/L Normal 22.0-30.0 [facility] Comment on above: Order Comment: Reaso n for Exam Hyperlipidemia Performed By: #### T SH3, LIPID, CMP ####[address] [address] [facility] Creatinine [Mass/Vol] 1.20 mg/dL Normal 0.64-1.27 [facility] Comment on above: Order Comment: Reaso n for Exam Hyperlipidemia Performed By: #### T SH3, LIPID, CMP ####[address] [address] [facility] Estimated GFR ( Cindi > 60 Normal [facility] Comment on above: Order Comment: Reaso n for Exam Hyperlipidemia Result Comment: GFR estimated reference range: According to KDOQI guidelines, <60 ml/min/1.73m2 is sufficient to diagnose a patient with chronic kidney disease. Performed By: #### T SH3, LIPID, CMP ####[place] [address] [place] [address] [facility] Estimated GFR (Non- Am > 60 Normal [facility] Comment on above: Order Comment: Reaso n for Exam Hyperlipidemia Performed By: #### T SH3, LIPID, CMP ####[place] [address] [place] [address] [facility] Globulin (S) [Mass/Vol] 3.1 g/dL Normal [facility] Comment on above: Order Comment: Reaso n for Exam Hyperlipidemia Performed By: #### T SH3, LIPID, CMP ####[place] [address] [place] [id number] [facility] Glucose [Mass/Vol] 87 mg/dL Normal 70-100 [facility] Comment on above: Order Comment: Reaso n for Exam Hyperlipidemia Result Comment: [facility] Glucose Reference Range is dependent on time and content of last meal. Glucose of more than 200 mg/dL in a nonstressed, ambulatory subject supports the diagnosis of Diabetes Mellitus. ADA recommended reference range Performed By: #### T SH3, LIPID, CMP ####[place] [address] [place] [address] [facility] Potassium [Moles/Vol] 4.3 mmol/L Normal 3.5-5.1 [facility] Comment on above: Order Comment: Reaso n for Exam Hyperlipidemia Performed By: #### T SH3, LIPID, CMP ####[address] [address] [facility] Protein [Mass/Vol] 7.3 g/dL Normal 6.1-7.9 [facility] Comment on above: Order Comment: Reaso n for Exam Hyperlipidemia Performed By: #### T SH3, LIPID, CMP ####[place] [address] [place] [address] [facility] Sodium [Moles/Vol] 140 mmol/L Normal 136-146 [facility] Comment on above: Order Comment: Reaso n for Exam Hyperlipidemia Performed By: #### T SH3, LIPID, CMP ####[address] [address] [facility] Urea nitrogen [Mass/Vol] 14 mg/dL Normal 9-23 [facility] Comment on above: Order Comment: Keaton larry for Exam Hyperlipidemia Performed By: #### T SH3, LIPID, CMP ####[facility] [id number] [place] [id number] [facility] Creatinine and Glomerular fi ltration rate.predicted panel (S/P/Bld)Ordered By: Nasrin Watson on 09-30-2022 Creatinine [Mass/Vol] 1.20 mg/dL 0.64-1.27 [facility] Eosinophils Auto (Bld) [#/Vo l]Ordered By: Nasrin Watson on 09-30-2022 Eosinophils (Bld) [#/Vol] 0.6 10*3/uL 0.0-0.45 [facility] Eosinophils/100 WBC Auto (Bl d)Ordered By: Nasrin Watson on 09-30-2022 Eosinophils/100 WBC (Bld) 7.9 % . [facility] Erythrocyte distribution wid th Auto (RBC) [Ratio]Ordered By: Nasrin Watson on 09-30-2022 Erythrocyte distribution width (RBC) [Ratio] 14.1 % 12.0-14.8 [facility] Estimated glomerular filtrat ion rate (GFR) non- AmericanOrdered By: Nasrin Watson on 09-30-2022 GFR/1.73 sq M.predicted among non-blacks MDRD (S/P/Bld) [Vol rate/Area] > 60 mL/Min [facility] Globulin Calc (S) [Mass/Vol] Ordered By: Nasrin Watson on 09-30-2022 Globulin (S) [Mass/Vol] 3.1 g/dL [facility] Hematocrit Auto (Bld) [Volum e fraction]Ordered By: Nasrin Watson on 09-30-2022 Hematocrit (Bld) [Volume fraction] 48.9 % 38.8-50.0 [facility] Hemoglobin [Mass/volume] in BloodOrdered By: Nasrin Watson on 09-30-2022 Hemoglobin (Bld) [Mass/Vol] 15.9 g/dL 13.0-17.0 [facility] Leukocytes [#/volume] correc james for nucleated erythrocytes in Blood by Automated counOrdered By: Nasrin Watson on 09-30-2022 WBC corrected for nucl RBC Auto (Bld) [#/Vol] 7.2 10*3/uL 4.1-10.5 [facility] Lipid Panelon 09-30-2022 Cholesterol [Mass/Vol] 181 mg/dL Normal 140-200 [facility] Comment on above: Order Comment: Reaso n for Exam Hyperlipidemia Result Comment: Chol less than 200 mg/dl low risk Chol 201-239 mg/dl borderline risk Chol 240 mg/dl and greater high risk Performed By: #### T SH3, LIPID, CMP ####[facility] [id number] [place] [id number] [facility] Cholesterol in HDL [Mass/Vol] 50 mg/dL Normal 29-71 [facility] Comment on above: Order Comment: Reaso n for Exam Hyperlipidemia Result Comment: HDL CHOL ATP-III CLASSIFICATION Cardiovascular Risk HDL > or equal to 60 mg/dL LOW HDL < 40 mg/dL HIGH Performed By: #### T SH3, LIPID, CMP ####[facility] [id number] [place] [address] [facility] Cholesterol.total/Yasmeen sterol in HDL [Mass ratio] 3.6 {ratio} Normal <5.0 [facility] Comment on above: Order Comment: Leso n for Exam Hyperlipidemia Performed By: #### T SH3, LIPID, CMP ####[facility] [id number] [place] [address] [facility] LDL Cholesterol,Calculated 114 mg/dL High 0-100 [facility] Comment on above: Order Comment: Reaso n for Exam Hyperlipidemia Result Comment: LDL ATP III CLASSIFICATION LDL less than 100 mg/dL Optimal LDL 100-129 mg/dL Near or above optimal LDL 130-159 mg/dL Borderline high LDL 160-189 mg/dL High LDL greater than 189 mg/dL Very high Performed By: #### T SH3, LIPID, CMP ####[facility] [id number] [place] [address] [facility] Triglyceride w/Reflex 85 mg/dL Normal 35-149 [facility] Comment on above: Order Comment: Reaso n for Exam Hyperlipidemia Result Comment: TRIG ATP III CLASSIFICATION TRIG less than 150 mg/dL Normal TRIG 150-199 mg/dL Borderline high TRIG 200-500 mg/dL High TRIG greater than 500 mg/dL Very high Standard traceable to the Center for Disease Conrtrol and Prevention (CDC) test method. Performed By: #### T SH3, LIPID, CMP ####[facility] [id number] VLDL CHOLESTEROL 17 mg/dL Normal [facility] Comment on above: Order Comment: Reaso n for Exam Hyperlipidemia Performed By: #### T SH3, LIPID, CMP ####[facility] [id number] [place] [id number] [facility] Lymphocytes Auto (Bld) [#/Vo l]Ordered By: Nasrin Watson on 09-30-2022 Lymphocytes (Bld) [#/Vol] 0.8 10*3/uL 1.00-4.8 [facility] Lymphocytes/100 WBC Auto (Bl d)Ordered By: Nasrin Watson on 09-30-2022 Lymphocytes/100 WBC (Bld) 10.9 % . [facility] MCH Auto (RBC) [Entitic mass ]Ordered By: Nasrin Watson on 09-30-2022 MCH (RBC) [Entitic mass] 28.9 pg 27.5-35.2 [facility] MCHC Auto (RBC) [Mass/Vol]Or dered By: Nasrin Watson on 09-30-2022 MCHC (RBC) [Mass/Vol] 32.5 g/dL 32.5-35.6 [facility] MCV Auto (RBC) [Entitic vol] Ordered By: Nasrin Watson on 09-30-2022 MCV (RBC) [Entitic vol] 89.1 fL 83.5-101 F [facility] Monocytes Auto (Bld) [#/Vol] Ordered By: Nasrin Watson on 09-30-2022 Monocytes (Bld) [#/Vol] 0.7 10*3/uL 0.0-0.8 [facility] Monocytes/100 WBC Auto (Bld) Ordered By: Nasrin Watson on 09-30-2022 Monocytes/100 WBC (Bld) 9.3 % . [facility] Neutrophils Auto (Bld) [#/Vo l]Ordered By: Nasrin Watson on 09-30-2022 Neutrophils (Bld) [#/Vol] 5.2 10*3/uL 1.8-7.7 [facility] Neutrophils/100 WBC Auto (Bl d)Ordered By: Nasrin Watson on 09-30-2022 Neutrophils/100 WBC (Bld) 71.5 % . [facility] No Panel InformationOrdered By: Nasrin Watson on 09-30-2022 Estimated GFR () > 60 mL/Min [facility] Comment on above: GFR estimated refere nce range: According to KDOQI guidelines, <60 ml/min/1.73m2 is sufficient to diagnose a patient with chronic kidney disease. Pharmacy Creatinine Clearance (Chem N/A [facility] Nucleated erythrocytes [Pres ence] in Blood by Automated countOrdered By: Nasrin Watson on 09-30-2022 Nucleated RBC Auto Ql (Bld) 0.1 /100{WBC} 0-0.5 [facility] Platelet mean volume Auto (B ld) [Entitic vol]Ordered By: Nasrin Watson on 09-30-2022 Platelet mean volume (Bld) [Entitic vol] 7.7 fL 6.6-10.1 [facility] Platelets Auto (Bld) [#/Vol] Ordered By: Nasrin Watson on 09-30-2022 Platelets (Bld) [#/Vol] 293 10*3/uL 150-450 [facility] Protein [Mass/volume] in Ser um or PlasmaOrdered By: Nasrin Watson on 09-30-2022 Protein [Mass/Vol] 7.3 g/dL 6.1-7.9 [facility] RBC Auto (Bld) [#/Vol]Ordere d By: Nasrin Watson on 09-30-2022 RBC (Bld) [#/Vol] 5.49 10*6/uL 3.90-5.60 [facility] Serum or plasma alanine mckeon otransferase measurement without P-5'-P (enzymatic activiOrdered By: Nasrin Watson on 09-30-2022 ALT No additional P-5'-P [Catalytic activity/Vol] 28 U/L 10-60 [facility] Serum or plasma albumin/glob ulin mass ratioOrdered By: Nasrin Watson on 09-30-2022 Albumin/Globulin [Mass ratio] 1.4 {ratio} [facility] Serum or plasma alkaline di sphatase measurement (enzymatic activity/volume)Ordered By: Nasrin Watson on 09-30-2022 ALP [Catalytic activity/Vol] 68 U/L 32-92 [facility] Serum or plasma anion gap de terminationOrdered By: Nasrin Watson on 09-30-2022 Anion gap [Moles/Vol] 12.5 mmol/L 6.0-15.0 [facility] Serum or plasma aspartate am inotransferase measurement (enzymatic activity/volume)Ordered By: Nasrin Watson on 09-30-2022 AST [Catalytic activity/Vol] 23 U/L 10-42 [facility] Serum or plasma calcium lucie urement (mass/volume)Ordered By: Nasrin Watson on 09-30-2022 Calcium [Mass/Vol] 9.5 mg/dL 8.2-10.2 [facility] Serum or plasma chloride moncho surement (moles/volume)Ordered By: Nasrin Watson on 09-30-2022 Chloride [Moles/Vol] 105 mmol/L 95-114 [facility] Serum or plasma glucose lucie urement (mass/volume)Ordered By: Nasrin Watson on 09-30-2022 Glucose [Mass/Vol] 87 mg/dL 70-100 [facility] Comment on above: ADA recommended refe rence rangeRandom Glucose Reference Range is dependent on time and content of last meal. Glucose of more than 200 mg/dL in a nonstressed, ambulatory subject supports the diagnosis of Diabetes Mellitus. Serum or plasma high density lipoprotein (HDL) cholesterol measurementOrdered By: Nasrin Watson on 09-30-2022 Cholesterol in HDL [Mass/Vol] 50 mg/dL 29-71 [facility] Comment on above: HDL CHOL ATP-III CLA SSIFICATION Cardiovascular RiskHDL > or equal to 60 mg/dL LOWHDL < 40 mg/dL HIGH Serum or plasma potassium me asurement (moles/volume)Ordered By: Nasrin Watson on 09-30-2022 Potassium [Moles/Vol] 4.3 mmol/L 3.5-5.1 [facility] Serum or plasma sodium measu rement (moles/volume)Ordered By: Nasrin Watson on 09-30-2022 Sodium [Moles/Vol] 140 mmol/L 136-146 [facility] Serum or plasma total biliru bin measurement (mass/volume)Ordered By: Nasrin Watson on 09-30-2022 Bilirubin [Mass/Vol] 0.8 mg/dL 0.3-1.2 [facility] Serum or plasma total carbon dioxide measurement (moles/volume)Ordered By: Nasrin Watson on 09-30-2022 CO2 [Moles/Vol] 26.8 mmol/L 22.0-30.0 [facility] Serum or plasma total choles terol/high density lipoprotein (HDL) cholesterol mass ratOrdered By: Nasrin Watson on 09-30-2022 Cholesterol.total/Yasmeen sterol in HDL [Mass ratio] 3.6 {ratio} <5.0 [facility] Serum or plasma urea nitroge n measurement (mass/volume)Ordered By: Nasrin Watson on 09-30-2022 Urea nitrogen [Mass/Vol] 14 mg/dL 9-23 [facility] TSH DL <= 0.005 mIU/L QnOrde red By: Nasrin Watson on 09-30-2022 TSH Qn 3.24 m[IU]/L 0.45-5.33 [facility] Thyroid Stimulating Hormoneo n 09-30-2022 TSH Qn 3.24 m[IU]/L Normal 0.45-5.33 [facility] Comment on above: Order Comment: Reaso n for Exam Hyperlipidemia Result Comment: PERF ORMED BY: [facility] [address] [place] [address] PATHOLOGIST [employer] VANESSA AWAD M.D. Performed By: #### T SH3, LIPID, CMP ####[facility] [id number] [address] Mitchellcount includes the [facility] hospitalairamDAVID VILLE [id number] [facility] Triglyceride [Mass/volume] i n Serum or PlasmaOrdered By: Nasrin Watson on 09-30-2022 Triglyceride [Mass/Vol] 85 mg/dL 35-149 [facility] Comment on above: TRIG ATP III CLASSIF ICATIONTRIG less than 150 mg/dL NormalTRIG 150-199 mg/dL Borderline highTRIG 200-500 mg/dL High TRIG greater than 500 mg/dL Very highStandard traceable to the Center for Disease Conrtrol and Prevention (CDC) test method. WBC Auto (Bld) [#/Vol]Ordere d By: Nasrin Watson on 09-30-2022 WBC (Bld) [#/Vol] 7.2 10*3/uL 4.1-10.5 [facility] XR Hand Complete Right*on XR Hand Complete Right* CLINICAL HISTORY : Right thumb pain. No recent injury. COMPARISON: None. RESULT: No acute fracture. No dislocation. Moderate degenerative changes thumb CMC joint. Other scattered mild degenerative changes with small osteophytes. Soft tissues unremarkable. IMPRESSION: No acute osseous findings. Osteoarthritis, especially involving the thumb CMC joint. Report reported and signed by Lio Joaquin on 06/26/2022 1501 Normal [facility] Specialist Basophils Auto (Bld) [#/Vol] Ordered By: Nasrin Watson on 06-19-2022 Basophils (Bld) [#/Vol] 0.0 10*3/uL 0.0-0.2 [facility] Basophils/100 WBC Auto (Bld) Ordered By: Nasrin Watson on 06-19-2022 Basophils/100 WBC (Bld) 0.6 % . [facility] Blood hemoglobin measurement (mass/volume)Ordered By: Nasrin Watson on 06-19-2022 Hemoglobin (Bld) [Mass/Vol] 15.9 g/dL 13.0-17.0 [facility] Blood leukocytes automated c ount (number/volume)Ordered By: Nasrin Watson on 06-19-2022 WBC (Bld) [#/Vol] 7.1 10*3/uL 4.5-11.0 [facility] Body fluid albumin measureme nt (mass/volume)Ordered By: Nasrin Watson on 06-19-2022 Albumin (Body fld) [Mass/Vol] 4.2 g/dL 3.2-5.5 [facility] Cholesterol [Mass/volume] in Serum or PlasmaOrdered By: Nasrin Watson on 06-19-2022 Cholesterol [Mass/Vol] 186 mg/dL 140-200 [facility] Comment on above: Chol less than 200 m g/dl low risk Chol 201-239 mg/dl borderline risk Chol 240 mg/dl and greater high risk Cholesterol in LDL Calc [Mas s/Vol]Ordered By: Nasrin Watson on 06-19-2022 Cholesterol in LDL [Mass/Vol] 118 mg/dL 0-100 [facility] Comment on above: LDL ATP III CLASSIFI CATION LDL less than 100 mg/dL Optimal LDL 100-129 mg/dL Near or above optimal LDL 130-159 mg/dL Borderline high LDL 160-189 mg/dL High LDL greater than 189 mg/dL Very high Cholesterol in VLDL Calc [Ma ss/Vol]Ordered By: Nasrin Watson on 06-19-2022 Cholesterol in VLDL [Mass/Vol] 24 mg/dL [facility] Creatinine and Glomerular fi ltration rate.predicted panel (S/P/Bld)Ordered By: Nasrin Watson on 06-19-2022 Creatinine [Mass/Vol] 1.21 mg/dL 0.64-1.27 [facility] Eosinophils Auto (Bld) [#/Vo l]Ordered By: Nasrin Watson on 06-19-2022 Eosinophils (Bld) [#/Vol] 0.5 10*3/uL 0.0-0.45 [facility] Eosinophils/100 WBC Auto (Bl d)Ordered By: Nasrin Watson on 06-19-2022 Eosinophils/100 WBC (Bld) 6.9 % . [facility] Erythrocyte distribution wid th Auto (RBC) [Ratio]Ordered By: Nasrin Watson on 06-19-2022 Erythrocyte distribution width (RBC) [Ratio] 14.3 % 12.0-14.8 [facility] Estimated glomerular filtrat ion rate (GFR) non- AmericanOrdered By: Nasrin Watson on 06-19-2022 GFR/1.73 sq M.predicted among non-blacks MDRD (S/P/Bld) [Vol rate/Area] 60 mL/Min [facility] Globulin Calc (S) [Mass/Vol] Ordered By: Nasrin Watson on 06-19-2022 Globulin (S) [Mass/Vol] 3.1 g/dL [facility] Hematocrit Auto (Bld) [Volum e fraction]Ordered By: Nasrin Watsno on 06-19-2022 Hematocrit (Bld) [Volume fraction] 47.4 % 38.8-50.0 [facility] Laboratory - Hematology and Cell countsOrdered By: Nasrin Watson on 06-19-2022 Nucleated RBC/100 WBC (Bld) [Ratio] 0.1 % 0-0.5 [facility] Lymphocytes Auto (Bld) [#/Vo l]Ordered By: Nasrin Watson on 06-19-2022 Lymphocytes (Bld) [#/Vol] 0.8 10*3/uL 1.00-4.8 [facility] Lymphocytes/100 WBC Auto (Bl d)Ordered By: Nasrin Watson on 06-19-2022 Lymphocytes/100 WBC (Bld) 11.2 % . [facility] MCH Auto (RBC) [Entitic mass ]Ordered By: Nasrin Watson on 06-19-2022 MCH (RBC) [Entitic mass] 29.7 pg 27.5-35.2 [facility] MCHC Auto (RBC) [Mass/Vol]Or dered By: Nasrin Watson on 06-19-2022 MCHC (RBC) [Mass/Vol] 33.5 g/dL 32.5-35.6 [facility] MCV Auto (RBC) [Entitic vol] Ordered By: Nasrin Watson on 06-19-2022 MCV (RBC) [Entitic vol] 88.7 fL 83.5-101 [facility] Monocytes Auto (Bld) [#/Vol] Ordered By: Nasrin Watson on 06-19-2022 Monocytes (Bld) [#/Vol] 0.8 10*3/uL 0.0-0.8 [facility] Monocytes/100 WBC Auto (Bld) Ordered By: Nasrin Watson on 06-19-2022 Monocytes/100 WBC (Bld) 10.7 % . [facility] Neutrophils Auto (Bld) [#/Vo l]Ordered By: Nasrin Watson on 06-19-2022 Neutrophils (Bld) [#/Vol] 5.0 10*3/uL 1.8-7.7 [facility] Neutrophils/100 WBC Auto (Bl d)Ordered By: Nasrin Watson on 06-19-2022 Neutrophils/100 WBC (Bld) 70.6 % . [facility] No Panel InformationOrdered By: Nasrin Watson on 06-19-2022 Estimated GFR () > 60 mL/Min [facility] Comment on above: GFR estimated refere nce range: According to KDOQI guidelines, <60 ml/min/1.73m2 is sufficient to diagnose a patient with chronic kidney disease. Pharmacy Creatinine Clearance (Chem N/A [facility] Platelet mean volume Auto (B ld) [Entitic vol]Ordered By: Nasrin Watson on 06-19-2022 Platelet mean volume (Bld) [Entitic vol] 8.3 fL 6.6-10.1 [facility] Platelets Auto (Bld) [#/Vol] Ordered By: Nasrin Watson on 06-19-2022 Platelets (Bld) [#/Vol] 273 10*3/uL 150-450 [facility] Protein [Mass/volume] in Ser um or PlasmaOrdered By: Nasrin Watson on 06-19-2022 Protein [Mass/Vol] 7.3 g/dL 6.1-7.9 [facility] RBC Auto (Bld) [#/Vol]Ordere d By: Nasrin Watson on 06-19-2022 RBC (Bld) [#/Vol] 5.35 10*6/uL 3.90-5.60 [facility] Serum or plasma alanine mckeon otransferase measurement without P-5'-P (enzymatic activiOrdered By: Nasrin Watson on 06-19-2022 ALT No additional P-5'-P [Catalytic activity/Vol] 22 U/L 10-60 [facility] Serum or plasma albumin/glob ulin mass ratioOrdered By: Nasrin Watson on 06-19-2022 Albumin/Globulin [Mass ratio] 1.4 {ratio} [facility] Serum or plasma alkaline di sphatase measurement (enzymatic activity/volume)Ordered By: Nasrin Watson on 06-19-2022 ALP [Catalytic activity/Vol] 62 U/L 32-92 [facility] Serum or plasma anion gap de terminationOrdered By: Nasrin Watson on 06-19-2022 Anion gap [Moles/Vol] 14.7 mmol/L 6.0-15.0 [facility] Serum or plasma aspartate am inotransferase measurement (enzymatic activity/volume)Ordered By: Nasrin Watson on 06-19-2022 AST [Catalytic activity/Vol] 23 U/L 10-42 [facility] Serum or plasma calcium lucie urement (mass/volume)Ordered By: Nasrin Watson on 06-19-2022 Calcium [Mass/Vol] 9.8 mg/dL 8.2-10.2 [facility] Serum or plasma chloride moncho surement (moles/volume)Ordered By: Nasrin Watson on 06-19-2022 Chloride [Moles/Vol] 104 mmol/L 95-114 [facility] Serum or plasma glucose lucie urement (mass/volume)Ordered By: Nasrin Watson on 06-19-2022 Glucose [Mass/Vol] 98 mg/dL 70-100 [facility] Comment on above: ADA recommended refe rence range Random Glucose Reference Range is dependent on time and content of last meal. Glucose of more than 200 mg/dL in a nonstressed, ambulatory subject supports the diagnosis of Diabetes Mellitus. Serum or plasma high density lipoprotein (HDL) cholesterol measurementOrdered By: Nasrin Watson on 06-19-2022 Cholesterol in HDL [Mass/Vol] 43 mg/dL 29-71 [facility] Comment on above: HDL CHOL ATP-III CLA SSIFICATION Cardiovascular Risk HDL > or equal to 60 mg/dL LOW HDL < 40 mg/dL HIGH Serum or plasma potassium me asurement (moles/volume)Ordered By: Nasrin Watson on 06-19-2022 Potassium [Moles/Vol] 4.0 mmol/L 3.5-5.1 [facility] Serum or plasma sodium measu rement (moles/volume)Ordered By: Nasrin Watson on 06-19-2022 Sodium [Moles/Vol] 137 mmol/L 136-146 [facility] Serum or plasma total biliru bin measurement (mass/volume)Ordered By: Nasrin Watson on 06-19-2022 Bilirubin [Mass/Vol] 0.8 mg/dL 0.3-1.2 [facility] Serum or plasma total carbon dioxide measurement (moles/volume)Ordered By: Nasrin Watson on 06-19-2022 CO2 [Moles/Vol] 22.3 mmol/L 22.0-30.0 [facility] Serum or plasma total choles terol/high density lipoprotein (HDL) cholesterol mass ratOrdered By: Nasrin Watson on 06-19-2022 Cholesterol.total/Yasmeen sterol in HDL [Mass ratio] 4.3 {ratio} <5.0 [facility] Serum or plasma urea nitroge n measurement (mass/volume)Ordered By: Nasrin Watson on 06-19-2022 Urea nitrogen [Mass/Vol] 24 mg/dL 9-23 [facility] TSH DL <= 0.005 mIU/L QnOrde red By: Nasrin Watson on 06-19-2022 TSH Qn 8.68 m[IU]/L 0.45-5.33 [facility] Triglyceride [Mass/volume] i n Serum or PlasmaOrdered By: Nasrin Watson on 06-19-2022 Triglyceride [Mass/Vol] 123 mg/dL 35-149 [facility] Comment on above: TRIG ATP III CLASSIF ICATION TRIG less than 150 mg/dL Normal TRIG 150-199 mg/dL Borderline high TRIG 200-500 mg/dL High TRIG greater than 500 mg/dL Very high Standard traceable to the Center for Disease Conrtrol and Prevention (CDC) test method. COVID + FLU Quick Testingon 01-27-2022 SARS-CoV-2 (COVID-19) RNA SOPHIE+probe Ql (Unsp spec) Negative [employer] Other COVID + FLU Quick Testing Negative [employer] Other Urine 10 SGon 12-30-2021 Albumin DL <= 20 mg/L (U) [Mass/Vol] Negative [employer] Other pH (U) 5.5 [pH] [employer] Other Urine 10 SG Negative [employer] Other Urine 10 SG >=1.030 [employer] Other Urine 10 SG Moderate [employer] Other Urine 10 SG 0.2 [employer] Other Urine Cultureon 12-30-2021 Bacteria identified Cx Nom (U) [employer] Other Urine 10 SGon 12-22-2021 Albumin DL <= 20 mg/L (U) [Mass/Vol] Negative [employer] Other pH (U) 5.5 [pH] [employer] Other Urine 10 SG Negative [employer] Other Urine 10 SG >=1.030 [employer] Other Urine 10 SG 0.2 [employer] Other Free T4 (Free Thyroxine)on 0 12-04-2021 Free T4 [Mass/Vol] 0.77 ng/dL 0.61-1.12 [employer] Other Thyroid Antibodies TPO+Tg Ab on 12-04-2021 Thyroid Antibodies TPO+Tg Ab 11 0-34 [employer] Other Thyroid Antibodies TPO+Tg Ab <1.0 0.0-0.9 [employer] Other Thyroid Stimulating Hormoneo n 12-04-2021 TSH Qn 6.08 m[IU]/L 0.45-5.33 [employer] Other COVID Quick Testingon 2020 Result Negative [employer] Other HbA1c (Bld) [Mass fraction]o n 08-06-2021 A1C HEMOGLOBIN 5.4 [employer] Other A1C HEMOGLOBIN [employer] Other Vital Signs Date Time Vital Sign Value Performing Clinician Facility 09-13-2023 12:33-0500 Blood Pressure Location Harshil [facility] 09-13-2023 12:33-0500 Respiratory rate 16 /min Harshil RAM [facility] 06-23-2023 13:58-0400 Body temperature 98.4 [degF] Martinez Kaur PA-C Work Phone: [facility] 06-17-2023 08:45-0400 Body height 182.88 cm Nasrin Watson Other [employer] Other 06-17-2023 08:45-0400 Body mass index (BMI) [Ratio] 31.05 kg/m2 Nasrin Watson Other [employer] Other 06-17-2023 08:45-0400 Body weight 103.87 kg Nasrin Watson Other [employer] Other 06-17-2023 08:45-0400 Diastolic blood pressure 86 mm[Hg] Nasrin Cartys Other [employer] Other 06-17-2023 08:45-0400 SaO2% (BldA) [Mass fraction] 99 % Nasrin Watson Other [employer] Other 06-17-2023 08:45-0400 Systolic blood pressure 120 mm[Hg] Nasrin Carlozs Other [employer] Other 12-31-2022 15:22-0400 Diastolic blood pressure 83 mm[Hg] DO Nasrin Watson Work Phone: [facility] 12-31-2022 15:22-0400 Heart rate 73 /min DO Nasrin Kuns Work Phone: [facility] 12-31-2022 15:22-0400 Respiratory rate 16 /min DO Nasrin Kuns Work Phone: [facility] 12-31-2022 15:22-0400 SaO2% (BldA) [Mass fraction] 93 % DO Nasrin Kuns Work Phone: [facility] 12-31-2022 15:22-0400 Systolic blood pressure 131 mm[Hg] DO Nasrin Kuns Work Phone: [facility] 12-31-2022 14:52-0400 Inhaled oxygen flow rate 6 L/min DO Nasrin Kuns Work Phone: [facility] 12-31-2022 13:30-0400 Body height 182.88 cm DO Nasrin Kuns Work Phone: [facility] 12-31-2022 13:30-0400 Body mass index (BMI) [Ratio] 31.1 kg/m2 DO Nasrin Kuns Work Phone: [facility] 12-31-2022 13:30-0400 Body weight 104.32 kg DO Nasrin Kuns Work Phone: [facility] 12-31-2022 11:02-0400 Body temperature 97.9 [degF] DO Nasrin Kuns Work Phone: [facility] 10-06-2022 11:00-0500 Body height 182.88 cm Nasrin [employer] Other [facility] [employer] Other 10-06-2022 11:00-0500 Body mass index (BMI) [Ratio] 31.05 kg/m2 Nasrin [employer] Other [facility] [employer] Other 10-06-2022 11:00-0500 Body weight 103.87 kg Nasrin Kuns Other [employer] Other 10-06-2022 11:00-0500 Diastolic blood pressure 78 mm[Hg] Nasrin Kuns Other [employer] Other 10-06-2022 11:00-0500 Respiratory rate 16 /min Nasrin Kuns Other [employer] Other 10-06-2022 11:00-0500 SaO2% (BldA) [Mass fraction] 98 % Nasrin Kuns Other [employer] Other 10-06-2022 11:00-0500 Systolic blood pressure 132 mm[Hg] Nasrin Kuns Other [employer] Other 06-23-2022 08:30-0400 Body height 182.88 cm Nasrin Kuns Other [employer] Other 06-23-2022 08:30-0400 Body mass index (BMI) [Ratio] 31.87 kg/m2 Nasrin Kuns Other [employer] Other 06-23-2022 08:30-0400 Body weight 106.6 kg Nasrin Kuns Other [employer] Other 06-23-2022 08:30-0400 Diastolic blood pressure 80 mm[Hg] Nasrin Kuns Other [employer] Other 06-23-2022 08:30-0400 Respiratory rate 16 /min Nasrin Kuns Other [employer] Other 06-23-2022 08:30-0400 SaO2% (BldA) [Mass fraction] 98 % Nasrin Kuns Other [employer] Other 06-23-2022 08:30-0400 Systolic blood pressure 110 mm[Hg] Nasrin Kuns Other [employer] Other 01-27-2022 10:30-0400 Body height 182.88 cm Nasrin Kuns Other [employer] Other 01-27-2022 10:30-0400 Body mass index (BMI) [Ratio] 31.33 kg/m2 Nasrin Kuns Other [employer] Other 01-27-2022 10:30-0400 Body temperature 98.6 [degF] Nasrin Kuns Other [employer] Other 01-27-2022 10:30-0400 Body weight 104.78 kg Nasrin Kuns Other [employer] Other 01-27-2022 10:30-0400 Diastolic blood pressure 80 mm[Hg] Nasrin Kuns Other [employer] Other 01-27-2022 10:30-0400 Respiratory rate 18 /min Nasrin Kuns Other [employer] Other 01-27-2022 10:30-0400 SaO2% (BldA) [Mass fraction] 93 % Nasrin Kuns Other [employer] Other 01-27-2022 10:30-0400 Systolic blood pressure 115 mm[Hg] Nasrin Kuns Other [employer] Other 01-02-2022 13:45-0400 Body height 182.88 cm Nasrin Kuns Other [employer] Other 01-02-2022 13:45-0400 Body mass index (BMI) [Ratio] 32.68 kg/m2 Nasrin Kuns Other [employer] Other 01-02-2022 13:45-0400 Body weight 109.32 kg Nasrin Kuns Other [employer] Other 01-02-2022 13:45-0400 Diastolic blood pressure 80 mm[Hg] Nasrin Kuns Other [employer] Other 01-02-2022 13:45-0400 Respiratory rate 18 /min Nasrin Kuns Other [employer] Other 01-02-2022 13:45-0400 SaO2% (BldA) [Mass fraction] 93 % Nasrin Kuns Other [employer] Other 01-02-2022 13:45-0400 Systolic blood pressure 122 mm[Hg] Nasrin Kuns Other [employer] Other 12-22-2021 08:30-0400 Body height 182.88 cm Nasrin Kuns Other [employer] Other 12-22-2021 08:30-0400 Body mass index (BMI) [Ratio] 32.55 kg/m2 Nasrin Kuns Other [employer] Other 12-22-2021 08:30-0400 Body weight 108.86 kg Nasrin Kuns Other [employer] Other 12-22-2021 08:30-0400 Diastolic blood pressure 86 mm[Hg] Nasrin Kuns Other [employer] Other 12-22-2021 08:30-0400 Respiratory rate 16 /min Nasrin Kuns Other [employer] Other 12-22-2021 08:30-0400 SaO2% (BldA) [Mass fraction] 98 % Nasrin Kuns Other [employer] Other 12-22-2021 08:30-0400 Systolic blood pressure 120 mm[Hg] Nasrin Kuns Other [employer] Other 12-04-2021 09:00-0500 Body height 182.88 cm Nasrin Kuns Other [employer] Other 12-04-2021 09:00-0500 Body mass index (BMI) [Ratio] 32.19 kg/m2 Nasrin Kuns Other [employer] Other 12-04-2021 09:00-0500 Body weight 107.68 kg Nasrin Kuns Other [employer] Other 12-04-2021 09:00-0500 Diastolic blood pressure 78 mm[Hg] Nasrin Kuns Other [employer] Other 12-04-2021 09:00-0500 Respiratory rate 16 /min Nasrin Kuns Other [employer] Other 12-04-2021 09:00-0500 SaO2% (BldA) [Mass fraction] 97 % Nasrin Kuns Other [employer] Other 12-04-2021 09:00-0500 Systolic blood pressure 110 mm[Hg] Nasrin Kuns Other [employer] Other 08-26-2021 13:45-0500 Body height 182.88 cm Nasrin Kuns Other [employer] Other 08-26-2021 13:45-0500 Body mass index (BMI) [Ratio] 32.28 kg/m2 Nasrin Kuns Other [employer] Other 08-26-2021 13:45-0500 Body weight 107.96 kg Nasrin Kuns Other [employer] Other 08-26-2021 13:45-0500 Diastolic blood pressure 70 mm[Hg] Nasrin Kuns Other [employer] Other 08-26-2021 13:45-0500 Respiratory rate 16 /min Nasrin Kuns Other [employer] Other 08-26-2021 13:45-0500 Systolic blood pressure 112 mm[Hg] Nasrin Kuns Other [employer] Other 08-06-2021 16:45-0400 Body height 182.88 cm Nasrin Kuns Other [employer] Other 08-06-2021 16:45-0400 Body mass index (BMI) [Ratio] 32.41 kg/m2 Nasrin Kuns Other [employer] Other 08-06-2021 16:45-0400 Body weight 108.41 kg Nasrin Kuns Other [employer] Other 08-06-2021 16:45-0400 Diastolic blood pressure 80 mm[Hg] Nasrin Watson Other [employer] Other 08-06-2021 16:45-0400 Respiratory rate 18 /min Nasrin Watson Other [employer] Other 08-06-2021 16:45-0400 SaO2% (BldA) [Mass fraction] 97 % Nasrin Watson Other [employer] Other 08-06-2021 16:45-0400 Systolic blood pressure 115 mm[Hg] Nasrin Watson Other [employer] Other Encounters Encounter Date Encounter Type Care Provider Facility Start: 11-08-2023 ambulatory Harshil Gonzalez ty:[facility] Start: 10-25-2023 ambulatory Harshil Serranoi ty:[facility] Start: 10-15-2023 End: 10-15-2023 ambulatory Nasrin Watson Other [employer] Other Start: 10-15-2023 Telephone encounter Nasrin Watson [facility] [place] Start: 10-07-2023 End: 10-07-2023 ambulatory SKYE TOBIN Not Available Start: 10-05-2023 End: 10-06-2023 ambulatory Harshil RAM Facility:[facility] Start: 10-05-2023 End: 10-05-2023 Patient encounter procedure Harshil RAM [facility] Start: 09-23-2023 End: 09-23-2023 ambulatory MARTINEZ KAUR Facility:[facility] Start: 09-13-2023 End: 09-14-2023 ambulatory NASRIN WATSON Facility:[facility] Start: 09-13-2023 End: 09-13-2023 Patient encounter procedure Harshil RAM [facility] [place] Start: 07-07-2023 End: 07-07-2023 ambulatory Nasrin Watson Other [place] [employer] Other Start: 07-07-2023 Encounter by veronica Watson [facility] Start: 06-23-2023 End: 06-23-2023 ambulatory MARTINEZ KAUR Facility:[facility] Start: 06-23-2023 End: 06-23-2023 Patient encounter procedure Martinez Kaur PA-C Work Phone: Otolaryngology Comment on above: Bilateral hearing lo ss, unspecified hearing loss type (Primary Dx); Wears hearing aid in both ears; ETD (Eustachian tube dysfunction), bilateral; Environmental and seasonal allergies; Referred otalgia of both ears Start: 06-22-2023 ambulatory Harshil RAM Facility :[facility] Start: 06-22-2023 End: 06-22-2023 ambulatory Out[facility] Facility:[facility] Start: 06-22-2023 End: 06-22-2023 ambulatory DO Nasrin Watson Work Phone: [facility] Work Phone: Start: 06-22-2023 End: 06-22-2023 Departed Referred DO Nasrin Watson Work Phone: [facility] Work Phone: Start: 06-17-2023 Office outpatient visit 25 minutes Nasrin Watson [facility] Start: 06-17-2023 End: 06-17-2023 ambulatory DO Nasrinkeo Watson Work Phone: [facility] Work Phone: Start: 06-17-2023 End: 06-17-2023 Patient encounter procedure DO Nasrin Watson Work Phone: [facility] [place] Work Phone: Start: 05-31-2023 End: 05-31-2023 ambulatory Nasrin Kuns Facility:[facility] Start: 05-31-2023 End: 05-31-2023 ambulatory DO Nasrin Kuns Work Phone: [facility] Work Phone: Start: 05-31-2023 End: 05-31-2023 Patient encounter procedure DO Nasrin Kuns Work Phone: [facility] [place] Work Phone: Start: 05-20-2023 End: 05-20-2023 ambulatory Nasrin Kuns Other [employer] Other Start: 05-20-2023 Telephone encounter Nasrin Kuns [facility] Start: 03-09-2023 End: 03-09-2023 ambulatory Nasrin Kuns Other [employer] Other Start: 03-09-2023 Telephone encounter Nasrin Kuns [facility] Start: 03-08-2023 End: 03-08-2023 ambulatory Nasrin Kuns Other [employer] Other Start: 03-08-2023 Telephone encounter Nasrin Kuns [facility] Start: 01-04-2023 End: 01-04-2023 ambulatory Nasrin Kuns Other [employer] Other Start: 01-04-2023 Telephone encounter Nasrin Kuns [facility] Start: 12-31-2022 End: 12-31-2022 ambulatory Nasrin Kuns Facility:[facility] Start: 12-31-2022 End: 12-31-2022 Admission to same day surgery center DO Nasrin Kuns Work Phone: [facility] C[facility]-Surgery Center [facility] [place] Start: 12-31-2022 End: 12-31-2022 ambulatory DO Nasrin Kuns Work Phone: [facility] C[facility] Work Phone: Start: 12-18-2022 End: 12-18-2022 ambulatory Kameron Marin Facility:[facility] Start: 12-18-2022 End: 12-18-2022 ambulatory DO Nasrin Kuns Work Phone: [facility] Ctr Work Phone: Start: 12-18-2022 End: 12-18-2022 Patient encounter procedure DO Nasrin Kuns Work Phone: [facility] Work Phone: Start: 12-08-2022 End: 12-08-2022 ambulatory Kameron Marin Facility:[facility] Start: 12-08-2022 End: 12-08-2022 Patient encounter procedure DO Nasrin Kuns Work Phone: [facility] Ctr-Ultrasound [facility] [place] Work Phone: Start: 11-24-2022 End: 11-24-2022 ambulatory Nasrin Kuns Other [employer] Other Start: 11-24-2022 Telephone encounter Nasrin Carlozs [facility] Start: 10-06-2022 End: 10-06-2022 ambulatory Nasrin Kuns Other [employer] Other Start: 10-06-2022 Annual wellness visit Nasrin Ku ns Other [employer] Other Start: 10-06-2022 Patient encounter procedure Nasrin Kuns [facility] Start: 09-30-2022 End: 09-30-2022 ambulatory Nasrin Kuns Facility:[facility] Start: 09-30-2022 End: 09-30-2022 ambulatory DO Nasrin Kuns Work Phone: [facility] Ctr Work Phone: Start: 09-30-2022 End: 09-30-2022 Patient encounter procedure DO Nasrin Kuns Work Phone: [facility] Ctr-Lab [address] Work Phone: Start: 08-25-2022 End: 08-25-2022 ambulatory Nasrin Kuns Other [employer] Other Start: 08-25-2022 Telephone encounter Nasrin Kuns [facility] [place] Start: 08-03-2022 End: 08-03-2022 ambulatory Nasrin Kuns Other [employer] Other Start: 08-03-2022 Telephone encounter Nasrin Kuns [facility] [place] Start: 07-28-2022 End: 07-28-2022 ambulatory Nasrin Kuns Other [employer] Other Start: 07-28-2022 Telephone encounter Nasrin Kuns [facility] [place] Start: 06-23-2022 End: 06-23-2022 ambulatory Nasrin Kuns Other [employer] Other Start: 06-23-2022 Office outpatient visit 25 minutes Nasrin Kuns [facility] [place] Start: 06-19-2022 End: 06-19-2022 Patient encounter procedure DO Nasrin Kuns Work Phone: [facility] Ctr-Lab [place] Start: 06-02-2022 End: 06-02-2022 ambulatory Nasrin Kuns Other [employer] Other Start: 06-02-2022 Telephone encounter Nasrin Kuns [facility] [place] Start: 01-27-2022 End: 01-27-2022 ambulatory Nasrin Kuns Other [employer] Other Start: 01-27-2022 Office outpatient visit 15 minutes Nasrin Kuns [facility] [place] Start: 01-27-2022 Telephone encounter Nasrin Kuns [facility] [place] Start: 01-26-2022 End: 01-26-2022 ambulatory Nasrin Kuns Other [employer] Other Start: 01-26-2022 Telephone encounter Nasrin Kuns [facility] [place] Start: 01-02-2022 End: 01-02-2022 ambulatory Nasrin Kuns Other [employer] Other Start: 01-02-2022 Office outpatient visit 15 minutes Nasrin Kuns [facility] [place] Start: 12-30-2021 End: 12-30-2021 ambulatory Nasrin Kuns Other [employer] Other Start: 12-30-2021 Nursing evaluation o f patient and report Nasrin Kuns [facility] [place] Start: 12-30-2021 Telephone encounter Nasrin Kuns [facility] [place] Start: 12-22-2021 End: 12-22-2021 ambulatory Nasrin Kuns Other [employer] Other Start: 12-22-2021 Encounter for genera l adult medical examination without abnormal findings Nasrin Kuns [facility] [place] Start: 12-22-2021 Office outpatient visit 25 minutes Nasrin Kuns [facility] [place] Start: 12-04-2021 End: 12-04-2021 ambulatory Nasrin Kuns Other [employer] Other Start: 12-04-2021 Encounter for genera l adult medical examination without abnormal findings Nasrin Kuns [facility] [place] Start: 12-04-2021 Periodic preventive med est patient 40-64yrs Nasrin Kuns [facility] [place] Start: 08-26-2021 End: 08-26-2021 ambulatory Nasrinkeo Watson Other [employer] Other Start: 08-26-2021 Office outpatient visit 15 minutes Nasrinkeo Watson [facility] Start: 08-25-2021 ([facility] C Vac) [facility] Covid Vaccine Shanell Byrne [facility] Start: 08-25-2021 End: 08-25-2021 ambulatory Shanell Smitht Other [employer] Other Start: 08-06-2021 End: 08-06-2021 ambulatory Nasrinkeo Watson Other [employer] Other Start: 08-06-2021 Office outpatient visit 25 minutes Nasrin Watson [facility] Start: 11-05-2020 Patient encounter status Nasrin Watson Other [employer] Other Start: 08-19-2020 End: 08-26-2020 ambulatory REFERRED SELF Facility:[facility] Start: 09-05-2018 Patient encounter procedure NASRIN WATSON Facility:[id number] Start: 09-05-2018 Patient encounter procedure Facility:[id number] Procedures Date Procedure Procedure Detail Performing Clinician Start: 12-31-2022 Debridement DO Nasrin khanna Work Phone: Start: 12-08-2022 Ultrasonography of abdomen DO Nasrin Watson Work Phone: Colostomy Harshil RAM H/O: colostomy Colostomy status DO Nasrin Watson Work Phone: Herniated structure (morphologic abnormality) Harshil RAM Knee region structur e (body structure) Harshil RAM Rotator cuff includi ng muscles and tendons (body structure) Harshil RAM Screening for malign ant neoplasm of prostate Nasrin Donna Other Plan of Treatment Date Care Activity Detail Author Start: 06-04-2023 Influenza vaccination Influenza Vacc ine (#1) [facility] Start: 12-31-2022 [facility] Start: 12-31-2022 [facility] Start: 10-04-2022 Advance Directive Discussion Advance Directive Discussion [facility] Start: 10-04-2022 Depression Assessment Depression Ass essment [facility] Start: 10-20-2021 Covid-19 Vaccine (4 - Pfizer series) Covid-19 Vaccine (4 - Pfizer series) [facility] Start: 2012 Prostate Cancer Screening Discussion Prostate Cancer Screening Discussion [facility] Start: 2007 Shingrix Vaccine (1 of 2) Shingrix Vaccine (1 of 2) [facility] Start: 2002 Cologuard (FIT-DNA) Cologuard (FIT-D NA) [facility] Start: 2002 Colonoscopy Colonoscopy [facility] Start: 2002 Colorectal Cancer Screening Colorectal Cancer Screening [facility] Start: [address] COLONOGRAPHY [facility] Start: 2002 Diabetes Screening Diabetes Screenin g [facility] Start: 2002 Fecal Occult Blood Fecal Occult Bloo d [facility] Start: 2002 SIGMOIDOSCOPY SIGMOIDOSCOPY [facility] Start: 1992 Lipid 1996 panel - S deion or Plasma Lipid Screening [facility] Start: 1976 Urine microalbumin profile DTaP,Tdap,Td Vaccine (1 - Tdap) [facility] Start: 1975 Hepatitis C Screening Hepatitis C Sc jaun [facility] Start: 1975 HIV Screening HIV Screening [facility] Start: 1963 Pneumococcal Vaccine : 65+ (1 - PCV) Pneumococcal Vaccine: 65+ (1 - PCV) [facility] Start: 1957 Abdominal Aortic Aneurysm Screening Abdominal Aortic Aneurysm Screening [facility] HEARING TEST/AUDIOGRAM HEARING T EST/AUDIOGRAM Audiology Routine Wears hearing aid in both ears ETD (Eustachian tube dysfunction), bilateral Bilateral hearing loss, unspecified hearing loss type Ordered: 06/23/2023 [facility] Work Phone: Comment on above: Ordered: 06/23/2023 Patient Education Stitches and S taples Hydrocodone and Acetaminophen [facility] Work Phone: Patient referral [facility] Work Phone: [facility] Immunizations Immunization Date Immunization Notes Care Provider Marisela wheeler 06-22-2023 zoster vaccine recombinant Harshil RAM [facility] 08-25-2021 COVID-19 Pfizer Shanell Luist Other [facility] 01-09-2021 COVID-19 Vaccine Pfizer - Documentation Purposes Only Nasrin Kuns Other [facility] 12-19-2020 COVID-19 Vaccine Pfizer - Documentation Purposes Only Nasrin Kuns Other [facility] 11-19-2014 zoster vaccine, live Nasrin Carlozs Other [facility] [employer] Other 06-22-2014 tetanus toxoid, reduced diphtheria toxoid, and acellular pertussis vaccine, adsorbed Nasrin Kuns Other [employer] Other 09-08-2012 influenza virus vaccine, split virus (incl. purified surface antigen) Nasrin Carlozs Other [employer] Other NEGATED: Highlighted row has not occurred!10-24-2019 influenza, seasonal, injectable Patient Objection Nasrin Watson Other [facility] [employer] Other Payers Date Payer Category Payer Private Health Insurance [facility] AARP SUPPLEMENT [id number] 2022-Present [phone] [address] [place] [address] Indemnity [id number] 2022 Unknown [id number] 2022 Self-pay [id number] 2022 Unknown [id number] 2022 Medicare [id number] 2022 Medicare MEDICARE MEDICAR E A AND B [id number] 2022-Present [phone] [place] [address] Medicare [id number] 1957 Unknown [id number] 2.16.840.1.985057.3.579.2. 355 1957 Unknown [id number] 2.16.840.1.288498.3.579.2. 356 1957 Unknown [id number] 2.16.840.1.274246.3.579.2. 647 1957 Unknown [id number] 2.16.840.1.515687.3.579.2. 727 1957 Unknown [id number] 2.16.840.1.992986.3.579.2. 727 1957 Unknown [id number] 2.16.840.1.323384.3.579.2. 727 1957 Unknown [id number] 2.16.840.1.825437.3.579.2. 727 1957 Unknown [id number] 2.16.840.1.133603.3.579.2. 727 1957 Unknown [id number] 2.16.840.1.916789.3.579.2. 1259 Unknown [id number] Unknown [id number] 2.16.840.1.952179.19 Unknown [id number] 2.16.840.1.950506.3.579.2. 531 Unknown [id number] 2.16.840.1.537787.3.579.2. 531 Unknown [id number] 2.16.840.1.609033.3.579.2. 531 Unknown [id number] 2.16.840.1.251223.3.579.2. 531 Unknown [id number] 2.16.840.1.019915.3.579.2. 531 Unknown [id number] 2.16.840.1.170346.3.579.2. 531 Unknown [id number] 2.16.840.1.437253.3.579.2. 531 Social History Date Type Detail Facility Unknown if ever smoked [employer] Other Sex Assigned At [facility] Start: 10-26-2019 End: 09-13-2023 Tobacco smoking status TXIS Ex-smoker (finding) [facility] Start: 1955 Sex Assigned At Male F [facility] Start: 09-07-2011 Tobacco smoking stat us [facility] Smokes tobacco daily [facility] Work Phone: History of tobacco use Cigarette Smoker C [facility] Work Phone: Start: 09-07-2011 Cigarettes smoked current (pack per day) - Reported 0.1 [facility] Start: 09-07-2011 Tobacco use and exposure Smokeless tobacco non-user [facility] Work Phone: Start: 05-21-2022 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 10-05-2023 Evaluation + Plan note Extrac james from: Title:Urology Progress Note Author:Beny RAM MD Date:10/05/23 Impression and Plan Impression: #1. This gentleman has BPH with LUTS refractory to medications. He also is getting recurrent prostate infections. He is desirous for TURP. Plan: #1. He will continue twice daily Flomax for now. 2. We will repeat his urodynamics today. 3. He will get scheduled for a TURP. [facility]01-02-2024 Note [id number] Discharge instructions Patient Education 10/05/2023 09:59:15 EU - Cystoscopy Discharge Instructions (CUSTOM) Cystoscopy Voiding after the procedure: there may be some pain, burning, urgency, frequency and blood tinged urine following the procedure. These symptoms usually resolve within 2-5 days. Drink the amount of fluid it takes to keep the urine pink to yellow or clear in color. Drinking enough water and fluids will help to ease any discomfort after your procedure. If you are having problems that seem out of the ordinary, please call. If unable to contact your physician and you feel it is an emergency, go to the nearest emergency room or call 911 Diet you may resume your normal diet. Activity you may resume your normal activities Call if you have a fever over 100 degrees. Follow Up Care 09/13/2023 14:58:10 With:Harshil RAM Address: [facility] [address], [place] [address]- Business (1) When: Unknown Comments:Office will call to schedule follow up [facility]01-02-2024 NoteCustom Cystoscopy ? Voiding after the procedure: there may be some pain, burning, urgency, frequency and blood tingedurine following the procedure. These symptoms usually resolve within 2-5 days. Drink the amount of fluid it takes to keep the urine pink to yellow or clear in color. Drinking enough water and fluids will help to ease any discomfort after your procedure. ? If you are having problems that seem out of the ordinary, please call. ? If unable to contact your physician and you feel it is an emergency, go to the nearest emergency room or call 911 ? Diet ? you may resume your normal diet. ? Activity ? you may resume your normal activities ? Call if you have a fever over [address] 09-23-2023 NoteHNO ID: [id number] Author: Martinez Kaur PA-C Service: ? Author Type: Physician Currency Counter Type: Progress Notes Filed: 09/24/2023 2:36 PM Note Text: [facility] Head and [facility]ck [place] [facility] FOLLOW-UP CLINIC NOTE CC: Mr. Youssef is a 68 year old male who comes in for follow up. Patient was last seen on 06/23/2023 with plan of care: ASSESSMENT: Wears hearing aid in both ears Etd (eustachian tube dysfunction), bilateral Environmental and seasonal allergies Bilateral hearing loss, unspecified hearing loss type (primary encounter diagnosis) Referred otalgia of both ears PLAN: - Ordered hearing test with tympanometry for further evaluation of hearing, underlying etiology of tinnitus - Trial of Flonase; instructed patient on appropriate use, side effects and need for daily adherence to realize benefits - Aggressive allergy management, avoidance of allergic triggers, daily oral antihistamine, nasal saline rinses - Warm compress, gentle massage, analgesia as needed, soft diet advised, avoid clenching or grinding teeth; make appointment with a dentist who specializes in TMJ for further treatment, oral appliance if indicated - Advised patient on red flag warning signs, symptoms that warrant immediate evaluation in ER - Follow up after hearing test; sooner if clinically indicated Martinez Kaur PA-C Comprehensive ENT ASSESSMENT: Sensorineural hearing loss (snhl) of both ears (primary encounter diagnosis) Environmental and seasonal allergies Impairment of speech discrimination Abnormal auditory perception of both ears PLAN: - Discussed results of hearing test with patient; all patient questions answered, medically cleared to pursue amplification, HAE scheduling information provided - Patient may continue daily Flonase; instructed patient on appropriate use, side effects and need for daily adherence to realize benefits - Aggressive allergy management, avoidance of allergic triggers, daily oral antihistamine, nasal saline rinses - Annual hearing test, avoidance of noise exposure, discontinue Qtip use, no foreign objects in ears - Advised patient on red flag warning signs, symptoms that warrant immediate evaluation in ER - Follow up in 12 months with hearing test; sooner if clinically indicated Martinez Kaur PA-C Comprehensive ENT HPI: Since last visit, patient reports ear congestion, nasal congestion has improved with Flonase use. Patient denies any improvement in hearing, notes he has lost confidence in [employer] and interested in pursuing hearing aids through [facility] Audiology section. No new head or neck complaints today. Recall, history of ear infections, no PE tubes. Patient endorses history of seasonal and environmental allergies, last Allergy evaluation 20+ years ago and currently scheduled for new evaluation. 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 Patient accompanied by during duration of visit today. Past medical history: PAST MEDICAL HISTORY Diagnosis Date NEGATIVE MEDICAL HISTORY Past surgical history: PAST SURGICAL HISTORY Procedure Laterality Date ARTHROSCOPY KNEE DIAGNOSTIC W/WO SYNOVIAL BX SPX 2007 left Arthroscopy, knee Current medication(s): Current Outpatient Medications Medication Sig fluticasone (FLONASE ALLERGY RELIEF) 50 mcg/actuation nasal spray Use 1 [place] in each nostril twice daily. amitriptyline 100 mg ORAL tablet Take 100 mg by mouth daily at bedtime. Aspirin 81 mg ORAL Tab Take 81 mg by mouth. rosuvastatin (CRESTOR) 20 mg ORAL tablet Take 1 tablet by mouth daily at bedtime. multivitamin (DAILY MULTIPLE) ORAL tablet Take 1 tablet by mouth once daily. No current facility-administered medications for this visit. Allergies: ALLERGIES No Known Allergies Social history: Social History Tobacco Use Smoking status: Every Day Packs/day: 0.10 Years: 20.00 Additional pack years: 0.00 Total pack years: 2.00 Types: Cigarettes Smokeless tobacco: Never Substance Use Topics Alcohol use: No Drug use: No Family history: FAMILY HISTORY Problem Relation Age of Onset None Mother Heart Father 47 mi There are no exam notes on file for this visit. ROS: CONSTITUTIONAL: No fevers, chills, nightsweats, unintended weight loss HEAD: - headaches, - head injury EYES: - glasses/contact lens, - changes in vision, - diplopia, - blurry vision, - floaters EARS: + hearing loss, + change in hearing, + tinnitus, + otalgia, - ear pressure, + ear congestion, - otorrhea, - itching, - autophony, + ear infections, - PE tubes NOSE AND SINUSES: + nasal congestion, - rhinorrhea, - PND, - epistaxis, - sense of smell, - history of nasal polyps, - sinus trouble, - sinus pressure, - sinus pain MOUTH AND THROAT: - soreness, - dryness, - ulcers, - sore throat, - hoarseness, - change in voice, - teeth (caries, dentures, extractions (more content not included)...[facility]12-21-2023 NoteHNO ID: [id number] Author: Ivette Poole AuD, [facility] Service: ? Author Type: [employer] Type: Procedures Filed: 10/05/2023 8:57 PM Note Text: Head and Neck [place] AUDIOLOGIC EVALUATION REPORT Name: Vasile Youssef CC#: [id number] Date of Service: 09/23/2023 Date of : 1955 Age: [age] year old Referred by: Martinez Kaur [id number] [facility] [id number] Referred for: Evaluation of the cause of disorder of hearing, tinnitus, or balance. Referral documented: In an order in [facility] Patient's major complaints: Vasile has known history of bilateral hearing loss and use of binaural [employer] hearing aids that were fitted at an outside facility 5 years ago. Complaints of difficulty understanding speech particularly in background noise or more demanding listening environments despite use of amplification. Vasile reported a few episodes of dizziness, lightheadedness described as feeling like he's going to pass out for the past few weeks. Patient stated this may be related to an infection he has as a result of a ruptured colon from a colonoscopy 5 years ago. He follows with infection disease. Patient denies tinnitus, vertigo, imbalance. 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 Vasile Youssef was seen for an initial audiologic evaluation. See [facility] for additional reported history and symptoms. Risk of Falls Documentation for over 65 years old: No history of falls reported so minimal to no risk IMPRESSIONS RIGHT EAR: Sensorineural Hearing Loss most likely consistent with presbycusis AND noise exposure LEFT EAR: Sensorineural Hearing Loss most likely consistent with presbycusis AND noise exposure AUDIOLOGIC EVALUATION Following is a brief interpretation of the obtained findings from the audiologic evaluation. Refer to the Auditory Test Record for complete audiometric results. The patient was counseled about the test findings and appropriate audiologic recommendations were made. SUMMARY: Audiogram can be viewed under Proc tab. OTOSCOPY RIGHT EAR: Otoscopic inspection revealed clear ear canal, Tympanic Membrane intact. LEFT EAR: Otoscopic inspection revealed clear ear canal, Tympanic Membrane intact. TYMPANOMETRY Description of procedure: This test is an objective evaluation of middle ear function. CPT code: 90046 RIGHT EAR: Normal ME pressure and high TM compliance (mobility). LEFT EAR: Normal ME pressure and high TM compliance (mobility). PURE TONE AUDIOMETRY AND SPEECH TESTING Description of procedure: This test is an objective evaluation hearing sensitivity via air and bone conduction and speech recognition testing. CPT code:48215 RIGHT EAR: Hearing Sensitivity: Mild sloping to severe Sensorineural Hearing Loss above 500 Hz. Word Recognition Score: Good (82%). WRS is consistent with hearing sensitivity. Words were presented at 95 dB HL is above (greater than or equal to 60 dB HL) intensity level for average conversational speech. The NU-6 Word List (25 words) was used. LEFT EAR: Hearing Sensitivity: Mild sloping to severe Sensorineural Hearing Loss above 500 Hz. Word Recognition Score: Fair (76%). WRS is consistent with hearing sensitivity. Words were presented at 90 dB HL is above (greater than or equal to 60 dB HL) intensity level for average conversational speech. The NU-6 Word List (25 words) was used. RECOMMENDATIONS 1. ENT follow up per orders. 2. Continue follow up with his medical team and infectious disease. 3. The patient should continue binaural amplification. Recommend patient return for a hearing aid check with his dispenser for maintenance and programming as needed. 4. Annual recheck. 5. Hearing conservation. 6. The patient was counseled and given written information regarding hearing loss and effective communication strategies to enhance communication ability. Clayton Strong, LOI/A Clinical [employer] HALL Abbrev- iation Definition Degree of hearing sensitivity dB range WNL within normal limits WNL 0 - 20 SNHL sensorineural hearing loss Mild 20-40 CHL conductive hearing loss Moderate 40-55 MHL mixed hearing loss Moderately-Severe 55-70 WRS word recognition score Severe 70-90 ME middle ear Profound 90 + TM tympanic membrane[facility]12-11-2023 NoteChief Complaint Referral *Elevated PSA HPI Staff Evaluation requested by Dr Nasrin Watson due to Elevated PSA. Pt is a new pt, never before seen in our office. Per referral papers, pt currently taking Tamsulosin. Has significant difficult with urination if hedoes not take the Tamsulosin. Has been taking for the previous year. Denies Fam Hx of Prostate Cancer. Does not feel like he empties his bladder. 57ml Weak stream, sometimes dribbling. Denies pain/burning and visible blood in urine. Voiding q2hrs during the day, getting up 2-3x/night. Depends on fluid intake prior to bed. PSA 10/24/20- 3.590 11/24/21- 3.900 05/31/23- 4.690 06/17/23- 6.020 & 14.9% Pt did have a perforated bowel about 5yrs ago. States he has been dealing with infections every since then. History of Present Illness Tests reviewed: reviewed UA and External Records. I have reviewed the previous health record information and history for this patient from External Provider. I have reviewed and verified the staff HPI to be accurate for this encounter. There have been no associated fever, chills, flank pain, or blood in the urine. Denies any urinary infections since last encounter. Review of Systems PHQ Score Initial Depression Screen Score: 0 SCORE ROS - Provider Constitutional: denies weight loss, denies hot flashes. Eyes: denies eye problems. Gastrointestinal: denies nausea, denies vomiting. Cardiovascular: denies chest pain or angina. Integumentary: no dryness Musculoskeletal: denies musculoskeletal symptoms. ENMT: denies otolaryngeal symptoms. Respiratory: no shortness of breath. Heme/Lymph: denies easy bleeding tendency, denies easy bruising tendency. Psychiatric: no confusion, no anxiety. Genitourinary: See HPI. Physical Exam Vitals & Measurements RR: 16 HT: 77 in HT: 195 cm WT: 104.6 kg WT: 230.12 lb BMI: 27.51 General Appearance: alert, no distress, well nourished, well developed male. Head: normocephalic . Eyes: normal orbit and globe. ENMT: normal examination of external ears. Chest: Lungs CTA, respirations non labored. Cardiovascular: regular rate and rhythm. Abdomen: soft, non distended, no tenderness, no mass or organomegaly, no hernia. Genitourinary: normal scrotum, normal testes, normal urethra, normal epididymis, normal vas deferens/spermatic cord. Flank Pain: none. Bladder: nonpalpable. Penis: normal shaft, normal glans. Prostate: normal prostate, estimated weight 40 gms, no hard nodule observed. Lymph Nodes: unremarkable palpation of the cervical area. Skin: warm, dry, no bruising. Psychiatric: cooperative, affect appropriate for age, normal judgement, euthymic mood. Assessment/Plan 1. Elevated PSA (R97.20: Elevated prostate specific antigen [PSA]) PSA 10/24/20 - 3.59 11/24/21 - 3.90 05/31/23 - 4.69 06/17/23 - 6.02 & 14.9% He has an elevated PSA, which could indicate prostate cancer, prostate infection, prostate inflammation without infection, prostate manipulation, or benign prostate enlargement (BPH). The importance of the rate of PSA rise has also been discussed. The options for management have been discussed, including prostate biopsy versus close monitoring of the PSA over time. -Will order PSA F&T to be done in one month. 2. BPH with obstruction/lower urinary tract symptoms (N40.1: Benign prostatic hyperplasia with lower urinary tract symptoms) Per referral papers, pt currently taking Tamsulosin. Has significant difficult with urination if hedoes not take the Tamsulosin. Has been taking for the previous year. Takes it in the evening. Weak stream, sometimes dribbling. Denies pain/burning and visible blood in urine. Voiding q2hrs during the day, getting up 2-3x/night. Depends on fluid intake prior to bed. IPSS 23 UA today is negative for blood and infection. VIPIN: 40gms, benign Discussed increasing the Tamsulosin to BID from QD. Pt states that he would like to do this, has done it before on his own. Discussed what is causing his urinary sxs and how Tamsulosin effects these causes. Discussed possible outlet procedures that the pt could have done. Pt states that he would bewilling to get a TURP done. Advised pt that we would need to have a cysto and bladder function testdone to determine if a TURP would be best for him. -Will send new script for Tamsulosin 0.4mg BID to pharmacy on file. Discussed the medication side effects, and the patient will monitor closely for these, as well as for symptom improvement. If severe side effects occur, the medication should be stopped and the office notified. -Will schedule cysto w/Bladder Function test. The risks and benefits for cystoscopy have been discussed. The risks include bleeding, infection, and irritation of the bladder and urinary channel, among others. The patient, after being informed of procedural details and after questions have been answered, wishes to proceed. Full informed consent has been obtained. Will order Local anesthesia. - (more content not included)...[facility] Result Comment: Electronically Signed By: Harshil RAM MD\.br\Date and Time Signed: 09/13/23 13:55 EST\.br\Electronically Co-Signed By: Luz Valera\.br\Date and Time Co-Signed: 09/13/23 13:52 [id number] Hospital Discharge instructions Patient Education 09/13/2023 13:48:18 Benign Prostatic Hyperplasia Benign Prostatic Hyperplasia Benign prostatic hyperplasia (BPH) is an enlarged prostate gland that is caused by the normal agingprocess. The prostate may get bigger as a man gets older. The condition is not caused by cancer. The prostate is a walnut-sized gland that is involved in the production of semen. It is located in front of the rectum and below the bladder. The bladder stores urine. The urethra carries stored urine ou t of the body. An enlarged prostate can press on the urethra. This can make it harder to pass urine. The buildup of urine in the bladder can cause infection. Back pressure and infection may progress to bladder damage and kidney (renal) failure. What are the causes? This condition is part of the normal aging process. However, not all men develop problems from thiscondition. If the prostate enlarges away from the urethra, urine flow will not be blocked. If it enlarges toward the urethra and compresses it, there will be problems passing urine. What increases the risk? This condition is more likely to develop in men older than 50 years. What are the signs or symptoms? Symptoms of this condition include: Getting up often during the night to urinate. Needing to urinate frequently during the day. Difficulty starting urine flow. Decrease in size and strength of your urine stream. Leaking (dribbling) after urinating. Inability to pass urine. This needs immediate treatment. Inability to completely empty your bladder. Pain when you pass urine. This is more common if there is also an infection. Urinary tract infection (UTI). How is this diagnosed? This condition is diagnosed based on your medical history, a physical exam, and your symptoms. Tests will also be done, such as: A post-void bladder scan. This measures any amount of urine that may remain in your bladder after you finish urinating. A digital rectal exam. In a rectal exam, your health care provider checks your prostate by putting a lubricated, gloved finger into your rectum to feel the back of your prostate gland. This exam detects the size of your gland and any abnormal lumps or growths. An exam of your urine (urinalysis). A prostate specific antigen (PSA) screening. This is a blood test used to screen for prostate cancer. An ultrasound. This test uses sound waves to electronically produce a picture of your prostate gland. Your health care provider may refer you to a specialist in kidney and prostate diseases (urologist). How is this treated? Once symptoms begin, your health care provider will monitor your condition (active surveillance or watchful waiting). Treatment for this condition will depend on the severity of your condition. Treatment may include: Observation and yearly exams. This may be the only treatment needed if your condition and symptoms are mild. Medicines to relieve your symptoms, including: ?Medicines to shrink the prostate. ?Medicines to relax the muscle of the prostate. Surgery in severe cases. Surgery may include: ?Prostatectomy. In this procedure, the prostate tissue is removed completely through an open incision or with a laparoscope or robotics. ?Transurethral resection of the prostate (TURP). In this procedure, a tool is inserted through the opening at the tip of the penis (urethra). It is used to cut away tissue of the inner core of the prostate. The pieces are removed through the same opening of the penis. This removes the blockage. ?Transurethral incision (TUIP). In this procedure, small cuts are made in the prostate. This lessens the prostate's pressure on the urethra. ?Transurethral microwave thermotherapy (TUMT). This procedure uses microwaves to create heat. The heat destroys and removes a small amount of prostate tissue. ?Transurethral needle ablation (TUNA). This procedure uses radio frequencies to destroy and remove a small amount of prostate tissue. ?Interstitial laser coagulation (ILC). This procedure uses a laser to destroy and remove a small amount of prostate tissue. ?Transurethral electrovaporization (TUVP). This procedure uses electrodes to destroy and remove a small amount of prostate tissue. ?Prostatic urethral lift. This procedure inserts an implant to push the lobes of the prostate away from the urethra. Follow these instructions at home: Take erko-qfc-nqskzdh and prescription medicines only as told by your health care provider. Monitor your symptoms for any changes. Contact your health care provider with any changes. Avoid drinking large amounts of liquid before going to bed or out in public. Avoid or reduce how much caffeine or alcohol you drink. Give yourself time when you urinate. Keep all follow-up visits. This is important. Contact a health care provider if: You have unexplained back pain. Your symptoms do not get better with treatment. You develop side effects from the medicine you are taking. Your urine becomes very dark or has a bad smell. Your lower abdomen becomes distended and you have trouble passing urine. Get help right away if: You have a fever or chills. You suddenly cannot urinate. You feel light-headed or very dizzy, or you faint. There are large amounts of blood or clots in your urine. Your urinary problems become hard to manage. You develop moderate to severe low back or flank pain. The flank is the side of your body between the ribs and the hip. These symptoms may be an emergency. Get help right away. Call 911. Do not wait to see if the symptoms will go away. Do not drive yourself to the hospital. Summary Benign prostatic hyperplasia (BPH) is an enlarged prostate that is caused by the normal aging process. It is not caused by cancer. An enlarged prostate can press on the urethra. This can make it hard to pass urine. This condition is more likely to develop in men older than 50 years. Get help right away if you suddenly cannot urinate. This information is not intended to replace advice given to you by your health care provider. Make sure you discuss any questions you have with your health care provider. Document Revised: 04/08/2022 Document Reviewed: 04/08/2022 [employer] Patient Education 2022 [employer]. Follow Up Care 06/22/2023 11:30:17 With:YO OLIVA, ANDRY Fagan Address: [facility] [address] , [place] [address]- When: Unknown Comments:Schedule Cysto w/Bladder function test [facility] [place] Jason 10-04-2023 Evaluation note* Encounter Date Diagnosis Assessment Notes Treatment Notes Treatment Clinical Notes Jul, Insomnia (ICD-10 - G47.00) [employer] Other 09-20-2023 NoteHNO ID: [id number] Author: Martinez Kaur PA-C Service: ? Author Type: Physician Currency Counter Type: Progress Notes Filed: 06/23/2023 3:26 PM Note Text: [facility] NOTE CC: Vasile Youssef is a 67 year old male who is self referred for ear concerns. ASSESSMENT: Wears hearing aid in both ears Etd (eustachian tube dysfunction), bilateral Environmental and seasonal allergies Bilateral hearing loss, unspecified hearing loss type (primary encounter diagnosis) Referred otalgia of both ears PLAN: - Ordered hearing test with tympanometry for further evaluation of hearing, underlying etiology of tinnitus - Trial of Flonase; instructed patient on appropriate use, side effects and need for daily adherence to realize benefits - Aggressive allergy management, avoidance of allergic triggers, daily oral antihistamine, nasal saline rinses - Warm compress, gentle massage, analgesia as needed, soft diet advised, avoid clenching or grinding teeth; make appointment with a dentist who specializes in TMJ for further treatment, oral appliance if indicated - Advised patient on red flag warning signs, symptoms that warrant immediate evaluation in ER - Follow up after hearing test; sooner if clinically indicated Martinez Kaur PA-C [facility] HPI: 67 year old male presents to clinic for evaluation of ear concerns. Patient reports decreased hearing over the last 2 weeks. Patient initially went to [facility] to have hearing aids checked and was told they were working correctly. On examination, patient reports he was told he had puffiness or fluid in ear drums and needed to see ENT. Patient reports he experienced similar symptoms last year when flying to [place], resolved a few days after completion of travel. Today, patient reports bilateral ear congestion, nasal congestion worst in the morning. Patient reports trial of Claritin with temporary improvement of symptoms. Patient endorses hearing loss, has been wearing hearing aids for 5+ years, intermittent tinnitus. Patient reports last hearing test 6 months ago. Patient endorses history of ear infections, no PE tubes. Patient endorses history of seasonal and environmental allergies, last Allergy evaluation 20+ years ago and currently scheduled for new evaluation. 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 Patient accompanied by spouse during entirety of visit today. Past medical history: PAST MEDICAL HISTORY Diagnosis Date NEGATIVE MEDICAL HISTORY Past surgical history: PAST SURGICAL HISTORY Procedure Laterality Date ARTHROSCOPY KNEE DIAGNOSTIC W/WO SYNOVIAL BX SPX 2007 left Arthroscopy, knee Current medication(s): Current Outpatient Medications Medication Sig fluticasone (FLONASE ALLERGY RELIEF) 50 mcg/actuation nasal spray Use 1 Hamburg in each nostril twice daily. amitriptyline 100 mg ORAL tablet Take 100 mg by mouth daily at bedtime. Aspirin 81 mg ORAL Tab Take 81 mg by mouth. rosuvastatin (CRESTOR) 20 mg ORAL tablet Take 1 tablet by mouth daily at bedtime. multivitamin (DAILY MULTIPLE) ORAL tablet Take 1 tablet by mouth once daily. No current facility-administered medications for this visit. Allergies: ALLERGIES No Known Allergies Social history: Social History Tobacco Use Smoking status: Every Day Packs/day: 0.10 Years: 20.00 Additional pack years: 0.00 Total pack years: 2.00 Types: Cigarettes Smokeless tobacco: Never Substance Use Topics Alcohol use: No Drug use: No Family history: FAMILY HISTORY Problem Relation Age of Onset None Mother Heart Father 47 mi There are no exam notes on file for this visit. ROS: CONSTITUTIONAL: No fevers, chills, nightsweats, unintended weight loss HEAD: - headaches, - head injury EYES: - glasses/contact lens, - changes in vision, - diplopia, - blurry vision, - floaters EARS: + hearing loss, + change in hearing, + tinnitus, + otalgia, - ear pressure, + ear congestion, - otorrhea, + itching, - autophony, + ear infections, - PE tubes NOSE AND SINUSES: + nasal congestion, + rhinorrhea, - PND, - epistaxis, - sense of smell, - history of nasal polyps, - sinus trouble, - sinus pressure, - sinus pain MOUTH AND THROAT: - soreness, - dryness, - ulcers, - sore throat, - hoarseness, - change in voice, - teeth (caries, dentures, extractions, abscesses) NECK: - neck lumps, - goiter, + neck pain, - swollen lymph nodes or glands PULM: No dyspnea, unexplained cough CV: No chest pain, shortness of breath, leg swelling, or palpitations PSYCH: No concerns regarding depression, anxiety or panic PHYSICAL EXAM: GENERAL: 67 year old male is well developed, well nourished, without obvious deformities, in no acute distress COMMUNICATION: The patient speaks with a normal, clear voice without hoarseness. No stridor or stertor. Hear (more content not included)...[facility]09-[facility] History of Present illness Narrative* Martinez Kaur PA-C - 06/23/2023 2:13 PM EDT Images from the original note were not included. [facility] NOTE CC: Vasile Youssef is a 67 year old male who is self referred for ear concerns. ASSESSMENT: Wears hearing aid in both ears Etd (eustachian tube dysfunction), bilateral Environmental and seasonal allergies Bilateral hearing loss, unspecified hearing loss type (primary encounter diagnosis) Referred otalgia of both ears PLAN: - Ordered hearing test with tympanometry for further evaluation of hearing, underlying etiology of tinnitus - Trial of Flonase; instructed patient on appropriate use, side effects and need for daily adherence to realize benefits - Aggressive allergy management, avoidance of allergic triggers, daily oral antihistamine, nasal saline rinses - Warm compress, gentle massage, analgesia as needed, soft diet advised, avoid clenching or grinding teeth; make appointment with a dentist who specializes in TMJ for further treatment, oral appliance if indicated - Advised patient on red flag warning signs, symptoms that warrant immediate evaluation in ER - Follow up after hearing test; sooner if clinically indicated Martinez Kaur PA-C [facility] HPI: 67 year old male presents to clinic for evaluation of ear concerns. Patient reports decreased hearing over the last 2 weeks. Patient initially went to [facility] to have hearing aids checked and wastold they were working correctly. On examination, patient reports he was told he had puffiness or f luid in ear drums and needed to see ENT. Patient reports he experienced similar symptoms [place] flying to [place], resolved a few days after completion of travel. Today, patient reports bilateral ear congestion, nasal congestion worst in the morning. Patient reports trial of Claritin with temporary improvement of symptoms. Patient endorses hearing loss, has been wearing hearing aids for 5+ years, intermittent tinnitus. Patient reports last hearing test 6 months ago. Patient endorses history of ear infections, no PE tubes. Patient endorses history of seasonal and environmental allergies, last Allergy evaluation 20+ years ago and currently scheduled for new evaluation. 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 Patient accompanied by spouse during entirety of visit today. Past medical history: PAST MEDICAL HISTORY Diagnosis Date NEGATIVE MEDICAL HISTORY Past surgical history: PAST SURGICAL HISTORY Procedure Laterality Date ARTHROSCOPY KNEE DIAGNOSTIC W/WO SYNOVIAL BX SPX 2007 left Arthroscopy, knee Current medication(s): Current Outpatient Medications Medication Sig fluticasone (FLONASE ALLERGY RELIEF) 50 mcg/actuation nasal spray Use 1 [place] in each nostril twicedaily. amitriptyline 100 mg ORAL tablet Take 100 mg by mouth daily at bedtime. Aspirin 81 mg ORAL Tab Take 81 mg by mouth. rosuvastatin (CRESTOR) 20 mg ORAL tablet Take 1 tablet by mouth daily at bedtime. multivitamin (DAILY MULTIPLE) ORAL tablet Take 1 tablet by mouth once daily. No current facility-administered medications for this visit. Allergies: ALLERGIES No Known Allergies Social history: Social History Tobacco Use Smoking status: Every Day Packs/day: 0.10 Years: 20.00 Additional pack years: 0.00 Total pack years: 2.00 Types: Cigarettes Smokeless tobacco: Never Substance Use Topics Alcohol use: No Drug use: No Family history: FAMILY HISTORY Problem Relation Age of Onset None Mother Heart Father 47 mi There are no exam notes on file for this visit. ROS: CONSTITUTIONAL: No fevers, chills, nightsweats, unintended weight loss HEAD: - headaches, - head injury EYES: - glasses/contact lens, - changes in vision, - diplopia, - blurry vision, - floaters EARS: + hearing loss, + change in hearing, + tinnitus, + otalgia, - ear pressure, + ear congestion,- otorrhea, + itching, - autophony, + ear infections, - PE tubes NOSE & SINUSES: + nasal congestion, + rhinorrhea, - PND, - epistaxis, - sense of smell, - history of nasal polyps, - sinus trouble, - sinus pressure, - sinus pain MOUTH & THROAT: - soreness, - dryness, - ulcers, - sore throat, - hoarseness, - change in voice, - teeth (caries, dentures, extractions, abscesses) NECK: - neck lumps, - goiter, + neck pain, - swollen lymph nodes or glands PULM: No dyspnea, unexplained cough CV: No chest pain, shortness of breath, leg swelling, or palpitations PSYCH: No concerns regarding depression, anxiety or panic PHYSICAL EXAM: GENERAL: 67 year old male is well developed, well nourished, without obvious deformities, in no acute distress COMMUNICATION: The patient speaks with a normal, clear voice without hoarseness. No stridor or stertor. Hearing is grossly normal, bilateral hearing aids present OVERALL FACIAL APPEARANCE: No obvious scars, lesions, or masses EYES: Extraocular muscles are intact, no diplopia on primary gaze EARS: Externally normal in appearance, without scars, lesions, masses, or tenderness. Air conduction is equal bilaterally. Infante is in the midline. Rinne is positive bilaterally (AC > BC). Right EAC: patent; pinpoint scab along floor of EAC R TM: visualized and intact; dull taylor and translucent, landmarks undistorted; no fluid behind TM R Pneumotoscopy: TM is mobile Left EAC: patent; no swelling, redness, or obstruction L TM: visualized and intact; dull taylor and translucent, landmarks undistorted; no fluid behind TM L Pneumotoscopy: TM is mobile NOSE: Externally normal in appearance, without scars, lesions, or masses. There is no tenderness with percussion over the paranasal sinuses. Nasal passageways are patent. The mucosa is pink and moistwithout lesions, visible turbinates grossly hypertrophied on anterior rhinoscopy, clear rhinorrhea present. Septum is midline. ORAL CAVITY AND OROPHARYNX: Teeth are in fair repair and nontender. Uvula midline. Gag reflex intact. NECK: The neck appears symmetric without scars and on palpation is without masses or lymphadenopathy. Trachea is midline and mobile. Full range of motion without symptoms. LYMPH NODES: No masses or tenderness. No submental, submandibular, tonsillar, preauricular, posterior auricular, occipital, or parotid adenopathy MSK: TMJ joint palpated and revealed audible crepitation; TTP bilateral TMJ (left > right TMJ), masseter, temporalis, SCM NEURO: Patient is Alert and Oriented to person, place, time, and situation. Cranial nerves II-XII grossly intact RESPIRATORY: Breathing comfortably, no evidence accessory muscle use, no intercostal retractions CV: Strong carotid artery pulse with no bruit RADS: None LABS: Relevant labs were reviewed and discussed with patient. OUTSIDE RECORDS: None PROCEDURE: None Martinez Kaur PA-C [facility] Medical Decision Making: Problems: Low: Acute, uncomplicated illness or injury Moderate: 1+ chronic illnesses with change Data: Unique test(s) ordered: 1 Risk: Moderate: Drug management and Moderate risk from testing/treatment Medical Decision Making Level: 4 - Moderate [facility]* Encounter Date Diagnosis Assessment Notes Treatment Notes Treatment Clinical Notes Jun, Hypothyroidism (acquired) (ICD-10 - E03.9) TSH finding is within normal range. Pt is to continue with the above medication and we will continue to monitor. Jun, Hyperlipidemia (ICD-10 - E78.5) Review of blood work results reviewed with the patient. No signs of anemia or leukemia. Liver enzymes, kidney functions, glucose, electolytes are within normal range. Cholesterol findings have improved. Total cholesterol has improved from 186 to 176, LDL is 106 down from 118 . Pt is to continue with the above medication three days a week and continue watching their diet and increase their exercise regimen. Jun, Elevated PSA (ICD-10 - R97.20) PSA is elevated upon review of blood work results The patient denies consulting with urology . Addtional blood work recommended and ordered today. A digital exam performed today. Urology referrral recommended and initiated. Jun, Acute urinary retention (ICD-10 - R33.8) Pt is to continue with the above medication and we will continue to monitor. 14 Jun, 2023 Insomnia (ICD-10 - G47.00) The patient states he is unable to sleep without the above medication,he is taking two tablets at bedtime. He does report fatigue, discussion was had regarding residual next day fatigue secondary to the medication. 14 Jun, 2023 Bilateral hearing loss, unspecified hearing loss type (ICD-10 - H91.93) The patient is wearing bilateral hearing aids. Patient encourged to follow up with [facility] next week as scheduled. Jun, History of colostomy reversal (ICD-10 - Z98.890) The patient denies having a colonoscopy following his perferation /colostomy four years ago. The patient also has family history in is mother with colon cancer. I recommend the patient discuss this with his general surgeon who performed his previous surgery. 14 Jun, 2023 Straining to void (ICD-10 - R39.16) Jun, Benign prostatic hyperplasia with lower urinary tract symptoms (ICD-10 - N40.1) Urology evaluation [employer] Other 08-17-2023 Evaluation note* Encounter Date Diagnosis Assessment Notes Treatment Notes Treatment Clinical Notes May, Hyperlipidemia (ICD-10 - E78.5) May, Screening for prostate cancer (ICD-10 - Z12.5) [employer] Other 06-06-2023 Evaluation note* Encounter Date Diagnosis Assessment Notes Treatment Notes Treatment Clinical Notes Mar, Insomnia (ICD-10 - G47.00) [employer] Other 06-05-2023 Evaluation note* Encounter Date Diagnosis Assessment Notes Treatment Notes Treatment Clinical Notes Mar, Acute urinary retention (ICD-10 - R33.8) [employer] Other 04-03-2023 Evaluation note* Encounter Date Diagnosis Assessment Notes Treatment Notes Treatment Clinical Notes Jan, Insomnia (ICD-10 - G47.00) [employer] Other 01-03-2023 Evaluation note* Encounter Date Diagnosis Assessment Notes Treatment Notes Treatment Clinical Notes Oct, Medicare annual wellness visit, initial (ICD-10 - Z00.00) Personalized health advice was given to the beneficiary including a written plan for screenings discussed and provided. Advanced care planning reviewed and/or information given as requested. The above visit was performed by MICHELLE Ellsworth , under direct supervision of Dr.Brett Watson. Document reviewed and amended by provider signed below. Oct, Hypothyroidism (acquired) (ICD-10 - E03.9) Thyroid functions are within normal range. At this time I recommend the patient continue the above medication dose, and we will re-evaluate in six months. Oct, Hyperlipidemia (ICD-10 - E78.5) Blood work results reviewed with the patient. Total cholesterol is 181, HDL is 50 and LDL is 114. The patient discontinued Zetia approximately a week prior to having blood work obtained due to increased joint pain. Educational material provided regarding foods to eat and foods to avoid. I recommend he continues Atorvastatin three times a week as he has tolerated this well. We will continue to monitor and recheck in six months, Oct, Screening for prostate cancer (ICD-10 - Z12.5) Oct, Insomnia (ICD-10 - G47.00) [employer] Other 11-22-2022 Evaluation note* Encounter Date Diagnosis Assessment Notes Treatment Notes Treatment Clinical Notes Aug, Acute urinary retention (ICD-10 - R33.8) [employer] Other 10-31-2022 Evaluation note* Encounter Date Diagnosis Assessment Notes Treatment Notes Treatment Clinical Notes Jul, Acute urinary retention (ICD-10 - R33.8) [employer] Other 10-25-2022 Evaluation note* Encounter Date Diagnosis Assessment Notes Treatment Notes Treatment Clinical Notes Jul, Eustachian tube dysfunction (ICD-10 - H69.80) [employer] Other 09-20-2022 Evaluation note* Encounter Date Diagnosis Assessment Notes Treatment Notes Treatment Clinical Notes Jun, Hyperlipidemia (ICD-10 - E78.5) Cholesterol levels have increased somewhat compared to six months ago . I suggest he add Zetia along with the Atorvastatin three times a week .along with diet modification The patient is in agreement ,we will continue to monitor with blood work. Jun, Insomnia (ICD-10 - G47.00) Pt is to continue with the above medication and we will continue to monitor. Jun, Hypothyroidism (acquired) (ICD-10 - E03.9) TSH continues to be elevated upon review of blood work results, thyroid antibodies obtained six months ago were within normal limits. The patient is symptomatic with fatigue and does report a family history of hypothyroidism in his mother. I recommend he start Synthroid and we will re-evalaute with blood work. Jun, Right hand pain (ICD-10 - M79.641) The patient complains of pain /stiffness when he tries to bend his thumb.Denies paresthesia or pain in the other digits . Discussion was had regarding possible arthritis versus carpal tunnel. I suggest he try OTC Voltaren Gel along with extra strength Tylenol, instructions provided. Jun, Screening for prostate cancer (ICD-10 - Z12.5) [employer] Other 08-30-2022 Evaluation note* Encounter Date Diagnosis Assessment Notes Treatment Notes Treatment Clinical Notes May, Insomnia (ICD-10 - G47.00) [employer] Other 04-26-2022 Evaluation note* Encounter Date Diagnosis Assessment Notes Treatment Notes Treatment Clinical Notes Jan, Cough (ICD-10 - R05.9) Negative in house covid 19 and influenza obtained in the office today Jan, Head congestion (ICD-10 - R09.81) Jan, Chest congestion (ICD-10 - R09.89) Jan, Asthmatic bronchitis with acute exacerbation, unspecified asthma severity, unspecified whether persistent (ICD-10 - J45.901) Lung sounds are somewhat harsh on the left upon auscultation.I did prescribe the above medication and encouraged pt to increase fluid intake, throat lozenges or gargle with mouth wash as needed. Pt is to also take OTC pain medication and fever reducers as needed. [employer] Other 04-25-2022 Evaluation note* Encounter Date Diagnosis Assessment Notes Treatment Notes Treatment Clinical Notes Jan, Urinary retention (ICD-10 - R33.9) [employer] Other 04-01-2022 Evaluation note* Encounter Date Diagnosis Assessment Notes Treatment Notes Treatment Clinical Notes Jan, Urinary retention (ICD-10 - R33.9) Patient states that he was experiencing painful urination. I do believe patient had urethritis. Patient denies an discharge at the time of this. I did review urinalysis and culture with patient that was not indicative of an infection. Patient admits that the medication prescribed did help significantly. Patient is to finish Cipro and continue with Tamsolusin. Patient is to stay cognitive of symptoms. Call if symptoms worsen. Jan, Dysuria (ICD-10 - R30.0) [employer] Other 03-29-2022 Evaluation note* Encounter Date Diagnosis Assessment Notes Treatment Notes Treatment Clinical Notes Dec, Acute urinary retention (ICD-10 - R33.8) Patient educated on Flomax. Advised caution with standing as this medication may cause BP to drop. Advised ER is retention worsens. Rx sent to [facility]. Keep appointment on this Wednesday01-02-2022. Voiced understanding Dec, Dysuria (ICD-10 - R30.0) Dysuria. Acute onset. UA does show moderate blood. Will be started on Cipro 500 mg BID for 10 days. Urine sent for culture. Keep appointment this coming Wednesday for review. To ER if symptoms worsen/ voiced understanding Dec, Nocturia (ICD-10 - R35.1) [employer] Other 03-21-2022 Evaluation note* Encounter Date Diagnosis Assessment Notes Treatment Notes Treatment Clinical Notes Dec, Hyperlipidemia (ICD-10 - E78.5) Patient is to continue with taking the above medication three times a week. Refill provided. Blood work ordered for six months. Dec, Abnormal thyroid blood test (ICD-10 - R94.6) Thyroid antibodies are normal. We will recheck TSH in six months. Dec, Insomnia (ICD-10 - G47.00) Patient reports taking two tablets of the hydroxyzine at bedtime with improvement. Therefore we will increase the prescription to two tablets at bedtime as the patient noticed no improvement with just taking one. We will continue to monitor. Dec, Screening for prostate cancer (ICD-10 - Z12.5) Review of PSA level which was WNL, therefore, we will continue to monitor. Pt denies any urinary issues at this time. Dec, Wellness examination (ICD-10 - Z00.00) Urine collected from wellness last visit. Urinalysis was normal. [employer] Other 03-03-2022 Evaluation note* Encounter Date Diagnosis Assessment Notes Treatment Notes Treatment Clinical Notes Dec, Wellness examination (ICD-10 - Z00.00) Personalized health advice was given to the beneficiary to health education of preventative counseling services or programs aimed at reducing identified risk factors and improving self-management or community-based lifestyle interventions to reduce health risks and promote self-management and wellness, including physical activity and nutrition. A written plan for screenings was discussed, flu vaccination, routine lab studies, eye exams, as well as risk factors for other medical problems. Dec, Hyperlipidemia (ICD-10 - E78.5) Review of blood work results with the patient and compared these to last year. No signs of anemia or leukemia. Liver enzymes and kidney functions are within normal limits. Total cholesterol increased from 168 to 213 and LDL went from 102 to 136 . The patient admits he has been noncompliant taking medication as he often forgets , he does tolerate the medication well therefore I recommend he start taking this at least three times a week. Dec, Screening for prostate cancer (ICD-10 - Z12.5) Review of PSA level which was WNL, therefore, we will continue to monitor. Pt denies any urinary issues at this time. Dec, Abnormal thyroid blood test (ICD-10 - R94.6) Abnormal TSH findings upon review of blood work results. The patient is symptomatic with fatigue and has a family history of thyroid disease in his mother, therefore addtional blood work ordered to further evaluate. We will continue to monitor. Dec, Eczema (ICD-10 - L30.9) Eczema rash located on the lower abdomen region in the area of his previous abdominal surgery /post colostomy region. The above topical medication and instructions provided. Dec, Insomnia (ICD-10 - G47.00) The patient complains he continues to have difficulty staying asleep if he doesn't take two -three Tylenol PM at bedtime. 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 I suggest he try the above medication and see if this improves his ability to stay asleep. We will continue to monitor. [employer] Other 11-23-2021 Evaluation note* Encounter Date Diagnosis Assessment Notes Treatment Notes Treatment Clinical Notes Aug, Back pain (ICD-10 - M54.9) Patient reports improvement since medrol dose pack Aug, Runny nose (ICD-10 - R09.89) Aug, Cough (ICD-10 - R05.9) I do feel that he is having an immune response to the covid booster. His in house rapid antigen was negative, therefore I recommended that he alternate aleve/tylenol. Aug, History of smoking (ICD-10 - Z87.891) Chest xray was normal. Aug, Screening for prostate cancer (ICD-10 - Z12.5) Aug, Hyperlipidemia (ICD-10 - E78.5) [employer] Other 11-22-2021 Evaluation note* Encounter Date Diagnosis Assessment Notes Treatment Notes Treatment Clinical Notes Aug, Encounter for immunization (ICD-10 - Z23) Patient presents for COVID-19 vaccination BOOSTER. Pre-screening form answers evaluated with patient. Patient denies current illness or allergic reaction to component of COVID-19 vaccine. Patient provided with current copy of EUA. [employer] Other 11-03-2021 Evaluation note* Encounter Date Diagnosis Assessment Notes Treatment Notes Treatment Clinical Notes Aug, Elevated liver enzymes (ICD-10 - R74.8) Reviewed lab work with patient. Patients liver enzymes are no longer elevated. Hepatitis screening are negative. Aug, Kidney function abnormal (ICD-10 - N28.9) Kidney funtion is WNL. Aug, Hyperglycemia (ICD-1 0 - R73.9) Reviewed lab work with patient, FBS was slightly elevated. In house A1C performed and reviewed with normal result. Patient is to monitor diet and exercise as tolerated. Aug, Hyperlipidemia (ICD-10 - E78.5) Reviewed lab work with patient, patient is non-compliant with taking the Atorvastatin. Patient is trying to take this a couple times a week.l advised with the results we reviewed today, he can take this once a week. Aug, Hernia (ICD-10 - K46.9) Patient expresses the hernia getting bigger at times. I advised patient that with increasing the pressure in the abdomen, the small intestine bulges through. Patient did make an appointment with the surgeon on the . This has become quite bothersome due to pain. Aug, Back pain (ICD-10 - M54.9) Patint complains of lumbar pain with cervical stiffness. Patient complains of pain mostly in the left thoracic region. He has seen Dr. Beltran who adjusted him, this did improve his pain. In house EKG performed and reviewed to rule out cardiology issues, this is WNL. PAtient is to get the above xray. Did not appreciate shortness of breath or adventitious sounds auscultation [employer] Other 01-26-2011 History general Narrative - Reported* Type Description Date Medical History colonoscopy 10-29-2010 Medical History x-ray of left shoulder and hand Medical History 10/2010 stress test Medical History coccyx fracture 04/2015 Medical History Family hx of colon cancer Medical History 11/04/15 Ct Sinus Medical History 09/26/15 Elbow X-ray Medical History 11/19/15 CMP and Lipid Medical History 08/18/2018 PSA Medical History 09/2019 Right leg DV T , bilateral Pulmonary Embolism Medical History 10/24/2020 PSA 3.590 Medical History 11/22/20 stress tet Surgical History knee surgery with Dr. Puentes Surgical History Colostomy , Ventral hernia 09/03 03/22 Surgical History Right rotator cuff repair 11/18 Surgical History Hernia repair 09/2020 Hospitalization History Ventral hernia, colostomy , Bilateral Pulmonary Embolism , Right leg DVT 09/2019 [employer] Other 01-26-2011 History general Narrative - Reported* Type Description Date Medical History colonoscopy 10-29-2010, 9 Dr. Braun Medical History x-ray of left shoulder and hand Medical History 10/2010 stress test Medical History coccyx fracture 04/2015 Medical History Family hx of colon cancer Medical History 11/04/15 Ct Sinus Medical History 09/26/15 Elbow X-ray Medical History 11/19/15 CMP and Lipid Medical History 08/18/2018 PSA Medical History 09/2019 Right leg DV T , bilateral Pulmonary Embolism Medical History 10/24/2020 PSA 3.590 Medical History 11/22/20 stress tet Medical History 08/2021 EKG Medical History 11/24/2021 PSA (3.900) Surgical History knee surgery with Dr. Puentes Surgical History Colostomy , Ventral hernia 09/03 03/22 Surgical History Right rotator cuff repair 11/18 Surgical History Hernia repair 09/2020 Hospitalization History Ventral hernia, colostomy , Bilateral Pulmonary Embolism , Right leg DVT 09/2019 [facility] Other Evaluation + Plan note Future Appointments Appointment Date:09/28/2023 10:45:00 AM Scheduled Provider: Location:[facility] Appointment Type:Urology CALL PAT FT Appointment Date:10/05/2023 08:00:00 AM Scheduled Provider: Location:[facility] Appointment Type:Urology FT Appointment Date:10/05/2023 09:15:00 AM Scheduled Provider: Location:[facility] Appointment Type:Urology FT Diagnostic Tests Pending * PSA Free & Total 09/13/23 [facility] evaluation [facility] Other Evaluation noteNo assessment information available [facility] Work Phone: Evaluation note* Diagnosis Bilateral hearing loss, unspecified hearing loss type- Primary Wears hearing aid in both ears ETD (Eustachian tube dysfunction), bilateral Environmental and seasonal allergies Referred otalgia of both ears documented in this encounter [facility] course Narrative No data available for this section [facility] progress note No data available for this section [facility] Summary Purpose Family History Relationship Condition Age at Onset Recorded Date/T tish father Myocardial infarction Unknown Not Specified Malignant neoplasm of colon Unknown Advance Directives Advance Directive Response Recorded Date/ Time Advance Directives No January 20 3:20pm Advance Directive Response Recorded Date/ Time Advance Directives No January 20 2:20pm Chief Complaint and Reason for Visit Chief Complaint E78.5 lab Chief Complaint E78.5 lab R52 abdominal wound Chief Complaint R52 abdominal wound abdominal wound Chief Complaint E78.5 Chief Complaint E78.5 R97.20 Screening Reason for Referral Specialty Diagnoses / Procedures Referred By Yogi kincaid Referred To Contact Diagnoses Wears hearing aid in both ears ETD (Eustachian tube dysfunction), bilateral Bilateral hearing loss, unspecified hearing loss type Procedures HEARING TEST/AUDIOGRAM COMPRE AUDIOMETRY THRESHOLD EVAL SP Martinez Peng PA-C [address] [place] [address] [facility] [address] [place] [address] Referral ID Status Reason Start Date Expiration Date Visits Requested Visits Authorized [id number] Authorized Auto-Generat ed Referral 06/23/2023 09/21/2023 1 1 Reason consult and treat Diagnosis 1 Elevated PSA (R97.20 ) Referral Organization [facility] [place] Referring Provider First Name Nasrin Referring Provider Last Name Donna Referring Provider Specialty Family Prac mark Referred Organization [facility] Referred Provider Dinesh Ballard Referred Address [address],[place], [place],[address] Referred Provider Specialty Urology Referral Priority Routine General Notes Shanell Vences 023 11:04:23 AM > Received today and waiting for office notes to be locked before sending referral Additional Source Comments (unrecognized sect ion and content) No Status Records FoundNo Status Records FoundNo Status Records FoundNo Status Records FoundNo Status Records FoundNo Status Records FoundNo Status Records FoundNo Status Records Found INFORMATION SOURCE (unrecogn ized section and content) DATE CREATED AUTHOR 09/12/2018 [facility] DATE CREATED AUTHOR AUTHOR'S ORGANIZ ATION 09/13/2018 [facility] DATE CREATED AUTHOR AUTHOR'S ORGANIZ ATION 08/26/2021 [facility] DATE CREATED AUTHOR AUTHOR'S ORGANIZ ATION 07/06/2022 [facility] DATE CREATED AUTHOR AUTHOR'S ORGANIZ ATION 06/23/2023 [facility] DATE CREATED AUTHOR AUTHOR'S ORGANIZ ATION 10/06/2023 [facility] DATE CREATED AUTHOR AUTHOR'S ORGANIZ ATION 10/08/2023 [facility] DATE CREATED AUTHOR AUTHOR'S ORGANIZ ATION 10/09/2023 [facility] EPIC REASON FOR VISIT (unrecogniz ed section and content) [facility] to call Reason Comments Ear Problem Care Teams (unrecognized sec tion and content) Team Status: Inactive Member Role Status Dates Nasrin Watson , DO Primary Care Provider, Attending Provi belem Active Team Status: Active Member Role Status Dates Nasrin Watson , DO Primary Care Provider Active Team Status: Inactive Member Role Status Dates Nasrin Watson , DO Primary Care Provider Active Kameron Marin MD Attending Provider Active Team Status: Inactive Member Role Status Dates Nasrin Watson , DO Primary Care Provider Active [facility] Attending Provider Active Goals (unrecognized section and content) Goals may be documented in a n alternate section Source Comments (unrecognize d section and content) In the event this informatio n is protected by the Federal Confidentiality of Alcohol and Drug Abuse Patient Records regulations: The Federal rules restrict any use of the information to criminally investigate or prosecute any alcohol or drug abuse patient.[facility] FOR RECORDS PERTAINING TO PATIENTS WHO ARE OR HAVE BEEN ENROLLED IN A CHEMICAL DEPENDENCY/SUBSTANCEABUSE PROGRAM, SOME INFORMATION MAY BE OMITTED. This clinical summary was aggregated from multiple sources. Caution should be exercised in using it in the provision of clinical care. This summary normalizes information from multiple sources, and as a consequence, information in this document may materially change the coding, format and clinical context of patient data. In addition, data may be omitted in some cases. CLINICAL DECISIONS SHOULD BE BASED ON THE PRIMARY CLINICAL RECORDS. [facility]. provides no warranty or guarantee of the accuracy or completeness of information in this document.
[2023-10-21] MEDS: LACTATED RINGER'S SOLUTION 1,000 ML 50 ML IV ×2 (11:01→13:39)
[2023-10-21] MEDS: LEVOFLOXACIN IN DEXTROSE 5 % 500 MG/100 ML PIGGYBACK 100 MG IV (12:46)
[2023-10-21] MEDS: HYDROMORPHONE HCL 0.5 MG/0.5 ML SYRINGE IV ×2 (14:15→14:20)
--- NOTE | 2023-10-21 14:30 | PM.URSON ---
Urology Surgery Operative Note Operative Note Procedure Date: 10/21/23 Time Out Performed: yes Pre-op Diagnosis: BPH with LUTS refractory to medications Post-op Diagnosis: same as pre-op Procedures performed: 1. Urethral dilation with [place] sounds to 28 Croatian. 2. Cystoscopy. 3. Transurethral resection of the prostate. 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 Mcfarlane catheter in the bladder taped to traction and CBI Indications for Procedures: This gentleman has significant bladder outlet obstructive symptoms despite taking oral medications like Flomax. Endoscopically he has trilobar obstruction. Urodynamically he is obstructed. He is strongly desirous for TURP. He has signed an informed consent after all risks were explained. Some of these include bleeding, infection, anesthesia, retrograde ejaculation, persistent voiding difficulties, urinary incontinence both temporary and permanent, erectile dysfunction and possible need for future prostatic procedures. Detailed description of Procedure: The patient was brought to the operating room and placed on the operating room table in the supine position. SCDs were placed on the lower extremities and turned on and functioning during the entire case. Timeout was done by all parties in the room. We all agreed upon the patient's identification and the planned procedures for this patient. Genn. anesthesia was then administered. The patient was then repositioned into the modified dorsal lithotomy position. All pressure points were satisfactorily padded. Genitalia were sterilely prepped and draped in usual fashion. I started by attempting to pass a 26 Croatian Olympus resectoscope with a standard bipolar loop electrode but was unable due to significant meatal stenosis. I used Telma sounds and dilated him from 24 Croatian up to 28 Croatian. I then was able to pass the resectoscope into the bladder. The ureteral orifices were marked with the loop electrode. I then uniformly resected the median lobe down to the bladder neck level. I then resected posteriorly from the bladder neck to the Veru. The left lateral lobe, right lateral lobe and anterior tissue were then resected similarly. The apex was then opened up. I had to use the vaporization/coagulation electrode to coagulate the resection bed several times during the procedure to maintain hemostasis. The Ilich was used to get all the prostate chips out of the bladder. These were sent for permanent sections. Upon completion, with the scope at the apex, the prostatic urethra and bladder neck were now wide open. There was no bleeding. There were no chips remaining in the bladder. The scope was then removed. I then passed a 22 Croatian three-way coud? Mcfarlane in the bladder. It was irrigated manually with a cath tip syringe. 30 cc of fluid was placed in the balloon. It was taped to traction and CBI was started. It irrigated clear to pink. The anesthetic was then reversed. [facility] to PACU in stable condition. Urinary Catheter Management Urinary Catheter Management Urethral: Cath placed during this visit: no
--- OUTSIDE RECORDS SUMMARY | 2023-10-21 15:12 | XMS_ITS | CCD ---
Author Name Unknown Address [address] [facility] [address] [place] [address] Organization [facility] Care Team Providers Care Workers Compensation Defense Attorney Name Role Phone KUNS, NASRIN Unavailable Unavailable KUNS, NASRIN Unavailable Unavailable SELF, REFERRED Referring Unavailable SELF, REFERRED Primary Care Unavailable JOSE ALEJANDRO SAUCEDO Attending Unavailable EBJOSE ALEJANDRO ANGULO Admitting Unavailable Kuns, Nasrin Unavailable Shanell Byrne Unavailable Kuns, DO Nasrin Primary Care Provider Kuns, DO Nasrin Attending Provider Kuns, DO Nasrin Primary Care Provider Kuns, DO Nasrin Attending Provider [phone] Kuns, DO Nasrin Primary Care Provider Kuns, DO Nasrin Attending Provider MD Kameron Marin Attending Provider [phone] Kuns, DO Nasrin Primary Care Provider [phone] Kuns, DO Nasrin Primary Care Provider [phone] Kuns, DO Nasrin Attending Provider Kuns, Nasrin [...] Provider Unavailfaby e Community, Outreach Attending Provider DONNASARAHTT Primary Care Physician MARTINEZ KAUR Referring Unavailable MARTINEZ KAUR Attending Unavailable MARTINEZ KAUR Referring Unavailable IVETTE POOLE Attending Unavailable MARTINEZ KAUR Attending Unavailable Harshil RAM Attending Unavailable DONAN, NASRIN Referring Unavailable RAM, Harshil Hilton Attending Unavailable RAMHarshil Admitting Unavailable RAM, Harshil Hilton Attending Unavailable RAM, Harshil Hilton Referring Unavailable RAM, Harshil Hilton Attending Unavailable SKYE TOBIN Attending Unavailable Allergies Allergy Classification Reported Allergen(s) Allergy Type Date of Onset Reaction(s) Facility (1 source) No Known Medication Allergies; Translations: [No Known Medication Allergies] Propensity to adverse reactions (disorder) [facility] Repository Medications Current Medications Medication Drug Class(es) [...] months, # 60 tab(s), Refills(s) 0, Pharmacy: [facility], 195, cm, 09/13/23 12:36:00 [...] 4 MG as directed Orally Aug, Active Nybpahyr-Whs-Rgifv-Vit K-Lycop (Men's Multivitamin) 400-20-300 mcg Tablet (8 sources) Start: 09-01-2019 take 1 tablet by mouth once daily in the morning Ioaksinl-Vqu-Pnyhq-Vit K-Lycop (Men's Multivitamin) 400-20-300 mcg Tablet Active 1 TAB PO Every morning September 01, 2019 1:00am Start: 09-01-2019 take 1 tablet by margarita th once daily Clzxaanx-Nbs-Fmlqt-Vit K-Lycop (Men's Multivitamin) 400-20-300 mcg Tablet Active 1 TAB PO Daily September 01, 2019 12:00am Start: 09-01-2019 take 1 tablet by margarita th once daily Ufkdilfb-Oyw-Dfrzw-Vit K-Lycop (Men's Multivitamin) 400-20-300 mcg Tablet Active [...] BID, # 60 cap(s), Refills(s) 11, Pharmacy: [facility], 195, cm, 09/13/23 12:36:00 [...] RELIEF) 50 mcg/actuation nasal spray Use 1 Alderson in each nostril twice daily. 18.2 mL 5 06/23/2023 Active Start: 07-13-2019 take 1 spray(s) nasa l route once daily Fluticasone Propionate 50 MCG/ACT 1 spray in each nostril Nasally Once a day Jul, Active Comment on above: Use 1 Alderson in each nostril twice daily. levoFLOXacin 750 [...] for Procedure/Surger yon 10-07-2023 Consent for Procedure/Surgery [id number]#1.0 0TIFF [facility] Consent for Procedure/Surger yon 10-05-2023 Consent for Procedure/Surgery [id number]. 00TIFF [facility] Consent for Treatmenton Consent for Treatment [id number]#1.0 0TIFF [facility] IntraOperative Documentson 0 10-05-2023 IntraOperative Documents [id number]#1. 00TIFF [facility] IntraOperative Documents [id number]#1. 00TIFF Normal [facility] Main OR Intraoperative Recor don 10-05-2023 Main OR Intraoperative Record IntraOp Document Type FTURO Summary Primary Physician: Harshil RAM MD Finalized Date/Time: 10/05/23 09:58:51 Pt. Name: VASILE YOUSSEF /Sex: 1955 Male Med Rec #: [id number] Physician: Harshil RAM MD Financial #: [id number] Pt. Type: O Room/Bed: / Admit/Disch: 10/05/23 [...] Marie Ortiz Role Performed Surgeon - Primary Manager Pipeline - Primary Scrub - Primary Time In 10/05/23 09:40:00 10/05/23 09:40:00 10/05/23 09:40:00 Time Out 10/05/23 10:00:00 10/05/23 10:00:00 10/05/23 10:00:00 Procedure CYSTOSCOPY LOCAL(.) CYSTOSCOPY LOCAL(.) CYSTOSCOPY LOCAL(.) Jackson CAO RN IN ORIENTATION Last Modified By: James RN, CNOR, James RN, CNOR, James RN, DALEOR, Marilee 10/05/23 [...] ELI Ramirez RN, Ruthann 10/05/23 09:58 Normal [facility] Main OR Preoperative Recordo n 10-05-2023 Main OR Preoperative Record Holding Area Document Type FTURO Summary Primary Physician: Harshil RAM MD Finalized Date/Time: 10/05/23 09:27:50 Pt. Name: VASILE YOUSSEF/Sex: 1955 Male Med Rec #: [id number] Physician: Harshil RAM MD Financial #: [id number] Pt. Type: O Room/Bed: / Admit/Disch: 10/05/23 08:07:42 - Institution: Case Times Holding FTURO Pre-Care Text: Verifies consent for planned procedure, identifies individual values and wishes concerning care, includes family members in perioperative teaching Secures patient's records' belongings, and valuables, maintains patient's dignity and privacy, and maintains patient confidentiality Entry 1 In Holding 10/05/23 09:17:00 Outcomes Met? Yes Last Modified By: Shirin Rodriguez RN 10/05/23 09:17:26 Post-Care Text: The [...] 09:25 Shirin Rodriguez RN 10/05/23 09:27 Normal [facility] Operative Reporton Operative Report Patient: DYANA YOUSSEF [...] will continue his Flomax for now.. Normal [facility] Comment on above: Result Comment: Elec tronically Signed By: Harshil RAM MD\.br\Date and Time Signed: 10/05/23 10:02 EST Outpatient Surgery Discharge Instructionon 10-05-2023 Outpatient Surgery Discharge Instruction [id number]. 00TIFF Normal [facility] Progress Note-Physicianon Progress Note-Physician Patient: VASILE YOUSSEF [...] Unspecified hearing loss, bilateral / SNOMED CT 060311552 / Confirmed Insomnia / SNOMED CT 005187500 / Confirmed History of closure of colostomy / SNOMED CT 6868911613 / Confirmed Elevated PSA / SNOMED CT 6856158777 / Confirmed BPH with obstruction/lower urinary tract symptoms / SNOMED CT 0348602971 / Confirmed Feeling of incomplete bladder emptying / SNOMED CT 097508166 / Confirmed Chronic prostatitis / SNOMED CT 64451901 / Confirmed Histories Past Medical History: Resolved Acute retention of urine (140026919): Onset on 12/30/2021 at 66 years. Resolved on 09/10/2023 at 68 years. Hyperlipidemia (10796837): Onset on 08/06/2021 at 66 years. Resolved on 09/10/2023 at 68 years. Family History: Entire family history is negative. Procedure history: Knee (893848886). Colostomy (7160260445). Rotator cuff (86756699). Hernia (3383832810). Social History Social & Psychosocial Habits Tobacco [...] will get scheduled for a TURP. Johnathan [facility] Comment on above: Result Comment: Elec tronically Signed By: YO OLIVA, Harshil Santiago\Date and Time Signed: 10/05/23 10:05 EST Gregoria 09-23-2023 CNOV Office Visit (OTOLLN ) STEFFVASILE Fong ([id number]) 1955 M Date Time Provider Department 09/23/23 9:40 AM MARTINEZ KAUR During your visit today, we recorded the following information about you: Temperature 97.8 degrees Martinez Kaur PA-C 09/24/2023 2:36 PM Signed [facility] FOLLOW-UP CLINIC NOTE CC: Mr. Youssef is [...] and interested in pursuing hearing aids through [facility] Audiology section. No new head or neck [...] RELIEF) 50 mcg/actuation nasal spray Use 1 Alderson in each nostril twice daily. amitriptyline 100 [...] of nasa (more content not included)... Normal [facility] Office Visit (OTAULO ) VASILE YOUSSEF ([id number]) 1955 Date Time Provider Department 09/23/23 9:00 AM IVETTE POOLE During your visit today, we recorded the following information about you: Ivette Poole AuD, [facility] 10/05/2023 8:57 PM [facility] [place] AUDIOLOGIC EVALUATION REPORT Name: Vasile Youssef CC#: [id number] Date of Service: 09/23/2023 Date of : 1955 Age: [age] year old Referred by: Martinez Kaur [address] [address] Referred for: Evaluation of the cause of disorder of hearing, tinnitus, or balance. Referral documented: In an order in [facility] Patient's major complaints: Vasile has known history [...] seen for an initial audiologic evaluation. See [facility] Audiogram for additional reported history and symptoms. [...] evaluation of middle ear function. CPT code: 36378 RIGHT EAR: Normal ME pressure and high TM compliance (mobility). LEFT EAR: Normal ME pressure and high TM compliance (mobility). PURE TONE AUDIOMETRY AND SPEECH TESTING Description of procedure: This test is an objective evaluation hearing sensitivity via air and bone conduction and speech recognition testing. CPT code:30945 RIGHT EAR: Hearing Sensitivity: Mild sloping to [...] enhance communication ability. Clayton Strong, LOI/A Clinical School Psychological Examiner HALL Abbrev- iation Definition Degree of hearing sensitivity dB range WNL within normal limits WNL 0 - 20 SNHL sensorineural hearing loss Mild 20-40 CHL conductive hearing loss Moderate 40-55 MHL mixed hearing loss Moderately-Severe 55-70 WRS word recognition score Severe 70-90 ME middle ear Profound 90 + TM tympanic membrane Referring Provider: MARTINEZ KAUR [[id number]] Allergies As of Date: 09/23/2023 (No Known Allergies) Date Reviewed: 09/23/2023 Reviewed by: Krystal Romo MA - Fully Assessed Reason for Visit: Hearing Loss [111 (more content not included)... Normal [facility] Physician Referralon 023 Physician Referral [id number]#1. 00TIFF Normal [facility] Screenson 09-14-2023 Screens [id number]#1.0 0TIFF Normal [facility] Ambulatory Visit Summaryon 1 11-14-2022 Ambulatory Visit [...] [facility] [address], [place] [address]- Medications What When Instructions Unchanged atorvastatin (atorvastatin [...] your healt (more content not included)... Normal [facility] Patient Educationon 09-13-20 Patient Education Urology Benign [...] Follow these instructions at home: ? Take tnkc-hxe-smoruhw and prescription medicines only as told by [...] the medicine (more content not included)... Normal [facility] CT ABDOMEN PELVIS W IV CONTR Nick [...] CNOV Office Visit (OTOLLN ) VASILE YOUSSEF ([id number]) 1955 Date Time Provider Department 06/23/23 3:30 PM MARTINEZ KAUR During your visit today, we recorded the following information about you: Temperature 98.4 degrees Martinez Kaur PA-C 06/23/2023 3:26 PM Signed [facility] [place] CLINIC NOTE CC: Vasile Youssef is a [...] last 2 weeks. Patient initially went to [facility] to have hearing aids checked and was told they were working correctly. On examination, patient reports he was told he had puffiness or fluid in ear drums and needed to see ENT. Patient reports he experienced similar symptoms last year when flying to [place], resolved a few days after completion of [...] RELIEF) 50 mcg/actuation nasal spray Use 1 Alderson in each nostril twice daily. amitriptyline 100 [...] male i (more content not included)... Normal [facility] community outreach ABIon 06-22-2023 [facility] outreach MONY [facility] Main [place] [id number] Ultrasound Report Signed Patient: Vasile Youssef MR#: [id number] 2 : 1955 Acct:[id number] Age/Sex: 67 / M ADM Date: 06/22/23 Loc: RH Room: Type: REG REF Attending : Sander Daniels Ordering Provider: SANDER DANIELS Date of Service: 06/22/23 /[facility] outreach MONY: SCREENING Copies to: [facility] LOWER EXTREMITY SEGMENTAL ARTERIAL DOPSCAN (PVR) INDICATION: Nearly outreach screening program. PROCEDURE: Right arm blood pressure is 139 , left is 118 . Pressures at the right ankle are 139 with ankle-brachial index of 1.00. Pressures at the left ankle are 135 with ankle-brachial index of 0.97. Wave forms by plethysmography are normal. /[facility] MONY IMPRESSION: No HEMODYNAMICALLY SIGNIFICANT PERIPHERAL VASCULAR OCCLUSIVE DISEASE AT REST IN EITHER LOWER EXTREMITY. Impression dictated by: Bimal Salinas MD06/22/2023 3:17 PM Dictation Location: [place] [address] Tech: Tracy Fermin Transcribed By: BRENDON 06/22/23 151 Dictated By: Bimal Salinas MD 06/22/23 1515 Signed By: 06/22/23 1517 Normal [facility] outreach aortao n 06-22-2023 [facility] outreach aorta [place] [id number] Ultrasound Report Signed Patient: Vasile Youssef MR#: [id number] 2 : 1955 Acct:[id number] Age/Sex: 67 / M ADM Date: 06/22/23 Loc: RH Room: Type: REG REF Attending : Sander Daniels Ordering Provider: SANDER DANIELS Date of Service: 06/22/23 /[facility] outreach aorta: SCREENING Copies to: [facility] SCREENING ULTRASOUND OF THE ABDOMINAL AORTA COMPARISON: [...] normal caliber. There is no periaortic fluid. US/[facility] outreach aorta IMPRESSION: NO AORTIC ANEURYSM. HOWEVER, THE PROXIMAL AORTA IS NOT VISUALIZED DUE TO OVERLYING BOWEL GAS. Impression dictated by: Jonathon Jay M.D.06/22/2023 9:17 PM Dictation Location: [place] [address] Tech: Sharlene Levi Transcribed By: BRENDON 06/22/232116 Dictated By: Jonathon Jay II, MD 06/22/232115 Signed By: 06/22/232116 [facility] outreach caroti don 06-22-2023 [facility] outreach carotid [facility] [place] [address] Ultrasound Report Signed Patient: Vasile Youssef MR#: [id number] 2 : 1955 Acct:[id number] Age/Sex: 67 / M ADM Date: 06/22/23 Loc: Room: Type: [facility] Attending Dr: Sander [facility] Ordering Provider: SANDER DANIELS Date of Service: 06/22/23 US/[facility] outreach carotid: SCREENING Copies to: [facility] CAROTID DUPLEX INDICATION: [facility] screening program PROCEDURE: Color-flow duplex scanning is [...] Bimal Salinas MD06/22/2023 3:15 PM Dictation Location: [place] [address] Tech: Sharlene Gurmeet Transcribed By: BRENDON 06/22/23 1515 Dictated By: Bimal Salinas MD 06/22/23 1502 Signed By: 06/22/[address] [facility] PSA Diagnostic (Total Free)o n 06-17-2023 Prostate Spec Ag, Free 0.900 ng/mL Normal [facility] Comment on above: Order Comment: Reaso n for Exam Elevated PSA Performed By: #### P SATF ####[facility] [id number] PSA Total (Not a Screen) 6.020 ng/mL High 0.000-4.[address] [facility] Comment on above: Order Comment: Reaso n for Exam Elevated PSA Performed By: #### P SATF ####[facility] [id number] PSA,FREE% 14.9 % Normal [facility] Comment on above: Order Comment: Reaso [...] 10% 20% >25 5% 9% PERFORMED BY: [facility] [address] [place] [address] PATHOLOGIST RESPIRATORY CLINICIAN VANESSA AWAD M.D. Performed By: #### P [facility] ####[facility] [address] [place] [address] [facility] PSA Diagnostic (Total & Free )on 06-17-2023 PSA Diagnostic (Total & Free) 6.020 ng/mL High 0.000-4.000 ng/mL [employer] [facility] [employer] Other PSA Diagnostic (Total & Free) 0.900 ng/mL [facility] Other PSA Diagnostic (Total & Free) 14.9 % [employer] Other Prostate Specific Ag Free [M ass/volume] in Serum or PlasmaOrdered By: Nasrin Watson on 06-17-2023 Free PSA [Mass/Vol] 0.900 ng/mL [facility] Prostate specific Ag [Mass/v olume] in Serum or PlasmaOrdered By: Nasrin Watson on 06-17-2023 Prostate specific Ag [Mass/Vol] 6.020 ng/mL 0.000-4.[address] [facility] Serum or plasma free prostat e specific antigen (PSA)/total PSA ratioOrdered By: Nasrin Watson on 06-17-2023 Free PSA/Total PSA [Mass fraction] 14.9 % [facility] Comment on above: Based on the work [...] 05-31-2023 ALT [Catalytic activity/Vol] 20 U/L 7-[address] [facility] Albumin [Mass/volume] in Ser um or Plasma by Bromocresol green (BCG) dye binding methoOrdered By: Nasrin Watson on 05-31-2023 Albumin BCG dye [Mass/Vol] 4.4 g/dL 3.5-5.[address] [facility] Alkaline phosphatase [Enzyma tic activity/volume] in Serum or PlasmaOrdered By: Nasrin Watson on 05-31-2023 ALP [Catalytic activity/Vol] 66 U/L 34-[address] [facility] Aspartate aminotransferase [ Enzymatic activity/volume] in Serum or PlasmaOrdered By: Nasrin Watson on 05-31-2023 AST [Catalytic activity/Vol] 20 U/L 13-[address] [facility] Basophils Auto (Bld) [#/Vol] Ordered By: Nasrin Watson on 05-31-2023 Basophils (Bld) [#/Vol] 0.0 10*3/uL 0.0-0.[address] [facility] Basophils/100 WBC Auto (Bld) Ordered By: Nasrin Watson on 05-31-2023 Basophils/100 WBC (Bld) 0.6 % . F [facility] Bilirubin.total [Mass/volume ] in Serum or PlasmaOrdered By: Nasrin Watson on 05-31-2023 Bilirubin [Mass/Vol] 0.8 mg/dL 0.3-1.0 [facility] Calcium [Mass/volume] in Ser um or PlasmaOrdered By: Nasrin Watson on 05-31-2023 Calcium [Mass/Vol] 9.5 mg/dL 8.6-10.3 [facility] Carbon dioxide, total [Moles /volume] in Serum or PlasmaOrdered By: Nasrin Watson on 05-31-2023 CO2 [Moles/Vol] 24.7 mmol/L 21.0-31.0 [facility] Chloride [Moles/volume] in S deion or PlasmaOrdered By: Nasrin Watson 05-31-2023 Chloride [Moles/Vol] 109 mmol/L 98-107 [facility] Cholesterol [Mass/volume] in Serum or PlasmaOrdered By: Nasrin Watson on 05-31-2023 Cholesterol [Mass/Vol] 176 mg/dL 140-200 [facility] Comment on above: Chol less than 200 m g/dl low riskChol 201-239 mg/dl borderline riskChol 240 mg/dl and greater high risk Cholesterol in LDL Calc [Mas s/Vol]Ordered By: Nasrin Watson on 05-31-2023 Cholesterol in LDL [Mass/Vol] 106 mg/dL 0-[address] [facility] Comment on above: LDL ATP III CLASSIFI CATIONLDL less than 100 mg/dL OptimalLDL 100-129 mg/dL Near or above optimalLDL 130-159 mg/dL Borderline highLDL 160-189 mg/dL HighLDL greater than 189 mg/dL Very high Cholesterol in VLDL Calc [Ma ss/Vol]Ordered By: Nasirn Watson on 05-31-2023 Cholesterol in VLDL [Mass/Vol] 21 mg/dL [facility] Complete Blood Count Auto Di ffon 05-31-2023 Basophils (Bld) [#/Vol] 0.0 10*3/uL Normal 0.0-0.[address] [facility] Comment on above: Order Comment: Reaso n for Exam Hyperlipidemia Result Comment: PERF ORMED BY: [facility] [address] [facility] [place] [address] PATHOLOGIST RESPIRATORY CLINICIAN VANESSA AWAD M.D. Performed By: #### C BC #### [facility] [address] [place] [address] [place] Basophils/100 WBC (Bld) 0.6 % Normal . F [facility] Comment on above: Order Comment: Reaso n for Exam Hyperlipidemia Performed By: #### C BC #### [facility] [address] [place] [id number] [place] Eosinophils (Bld) [#/Vol] 0.6 10*3/uL High 0.0-0.[address] [facility] Comment on above: Order Comment: Reaso n for Exam Hyperlipidemia Performed By: #### C BC #### [facility] [address] [place] [id number] [place] Eosinophils/100 WBC (Bld) 10.6 % Normal . [facility] Comment on above: Order Comment: Reaso n for Exam Hyperlipidemia Performed By: #### C BC #### [address] Erythrocyte distribution width (RBC) [Ratio] 14.2 % Normal 12.0-14.[address] [facility] Comment on above: Order Comment: Reaso n for Exam Hyperlipidemia Performed By: #### C BC #### [address] Hematocrit (Bld) [Volume fraction] 44.8 % Normal 38.8-50.[address] [facility] Comment on above: Order Comment: Reaso n for Exam Hyperlipidemia Performed By: #### C BC #### [address] Hemoglobin (Bld) [Mass/Vol] 14.8 g/dL Normal 13.0-17.[address] [facility] Comment on above: Order Comment: Reaso n for Exam Hyperlipidemia Performed By: #### C BC #### [address] Lymphocytes (Bld) [#/Vol] 0.8 10*3/uL Low 1.00-4.[address] [facility] Comment on above: Order Comment: Reaso n for Exam Hyperlipidemia Performed By: #### C BC #### [place] [address] [place] Lymphocytes/100 WBC (Bld) 14.6 % Normal . [facility] Comment on above: Order Comment: Reaso n for Exam Hyperlipidemia Performed By: #### C BC #### [place] [address] [place] MCH (RBC) [Entitic mass] 29.1 pg Normal 27.5-35.[address] [facility] Comment on above: Order Comment: Reaso n for Exam Hyperlipidemia Performed By: #### C BC #### [place] [address] [place] MCV (RBC) [Entitic vol] 87.7 fL Normal 83.5-101 F [facility] Comment on above: Order Comment: Reaso n for Exam Hyperlipidemia Performed By: #### C BC #### [address] Mean Corpuscular HGB Conc 33.2 g/dL Normal 32.5-35.[address] [facility] Comment on above: Order Comment: Reaso n for Exam Hyperlipidemia Performed By: #### C BC #### [address] Monocytes (Bld) [#/Vol] 0.6 10*3/uL Normal 0.0-0.[address] [facility] Comment on above: Order Comment: Reaso n for Exam Hyperlipidemia Performed By: #### C BC #### [address] Monocytes/100 WBC (Bld) 10.9 % Normal . F [facility] Comment on above: Order Comment: Reaso n for Exam Hyperlipidemia Performed By: #### C BC #### [address] Neutrophils (Bld) [#/Vol] 3.7 10*3/uL Normal 1.8-7.[address] [facility] Comment on above: Order Comment: Reaso n for Exam Hyperlipidemia Performed By: #### C BC #### [address] Neutrophils/100 WBC (Bld) 63.3 % Normal . [facility] Comment on above: Order Comment: Reaso n for Exam Hyperlipidemia Performed By: #### C BC #### [place] [address] [place] NRBC% 0.2 /100{WBC} Normal 0-0.[address] [facility] Comment on above: Order Comment: Reaso n for Exam Hyperlipidemia Performed By: #### C BC #### [address] Platelet mean volume (Bld) [Entitic vol] 7.9 fL Normal 6.6-10.[address] [facility] Comment on above: Order Comment: Reaso n for Exam Hyperlipidemia Performed By: #### C BC #### [address] [place] [address] [place] Platelets (Bld) [#/Vol] 247 10*3/uL Normal 150-[address] [facility] Comment on above: Order Comment: Reaso n for Exam Hyperlipidemia Performed By: #### C BC #### [facility] [address] RBC (Bld) [#/Vol] 5.10 10*6/uL Normal 3.90-5.60 [facility] Comment on above: Order Comment: Reaso n for Exam Hyperlipidemia Performed By: #### C BC #### [facility] [address] WBC (Bld) [#/Vol] 5.8 10*3/uL Normal 4.1-10.5 [facility] Comment on above: Order Comment: Reaso n for Exam Hyperlipidemia Performed By: #### C BC #### [address] Comprehensive Metabolic Pane sanchez 05-31-2023 Albumin [Mass/Vol] 4.4 g/dL Normal 3.5-5.7 [facility] Comment on above: Order Comment: Reaso n for Exam Hyperlipidemia Performed By: #### L IPID, CMP, TSH3 #### [address] Albumin/Globulin [Mass ratio] 1.8 {ratio} Normal [facility] Comment on above: Order Comment: Reaso n for Exam Hyperlipidemia Performed By: #### L IPID, CMP, TSH3 #### [address] ALP [Catalytic activity/Vol] 66 U/L Normal 34-[address] [facility] Comment on above: Order Comment: Reaso n for Exam Hyperlipidemia Performed By: #### L IPID, CMP, TSH3 #### [place] [id number] [facility] ALT [Catalytic activity/Vol] 20 U/L Normal 7-[address] [facility] Comment on above: Order Comment: Reaso n for Exam Hyperlipidemia Performed By: #### L IPID, CMP, TSH3 #### [facility] [address] [place] [id number] [place] Anion gap [Moles/Vol] 11.7 mmol/L Normal 6.0-15.0 [facility] Comment on above: Order Comment: Reaso n for Exam Hyperlipidemia Performed By: #### L IPID, CMP, TSH3 #### [facility] [address] [place] [id number] [place] AST [Catalytic activity/Vol] 20 U/L Normal 13-[address] [facility] Comment on above: Order Comment: Reaso n for Exam Hyperlipidemia Performed By: #### L IPID, CMP, TSH3 #### [facility] [address] Bilirubin [Mass/Vol] 0.8 mg/dL Normal 0.3-1.0 [facility] Comment on above: Order Comment: Reaso n for Exam Hyperlipidemia Performed By: #### L IPID, CMP, TSH3 #### [facility] [address] Calcium [Mass/Vol] 9.5 mg/dL Normal 8.6-10.3 [facility] Comment on above: Order Comment: Reaso n for Exam Hyperlipidemia Performed By: #### L IPID, CMP, TSH3 #### [facility] [address] [place] [id number] [place] Chloride [Moles/Vol] 109 mmol/L High 98-107 [facility] Comment on above: Order Comment: Reaso n for Exam Hyperlipidemia Performed By: #### L IPID, CMP, TSH3 #### [facility] [address] [place] [id number] [place] CO2 [Moles/Vol] 24.7 mmol/L Normal 21.0-31.0 [facility] Comment on above: Order Comment: Reaso n for Exam Hyperlipidemia Performed By: #### L IPID, CMP, TSH3 #### [facility] [address] Creatinine [Mass/Vol] 1.17 mg/dL Normal 0.70-1.30 [facility] Comment on above: Order Comment: Reaso n for Exam Hyperlipidemia Performed By: #### L IPID, CMP, TSH3 #### [facility] [address] [place] [address] [place] GFR/1.73 sq M.predicted MDRD (S/P/Bld) [Vol rate/Area] mL/min/{1.73_m2} Normal [facility] Comment on above: Order Comment: Reaso n for Exam Hyperlipidemia Performed By: #### L IPID, CMP, TSH3 #### [facility] [address] Globulin (S) [Mass/Vol] 2.5 g/dL Normal F [facility] Comment on above: Order Comment: Reaso n for Exam Hyperlipidemia Performed By: #### L IPID, CMP, TSH3 #### [facility] [address] Glucose [Mass/Vol] 90 mg/dL Normal 70-100 [facility] Comment on above: Order Comment: Reaso n for Exam Hyperlipidemia Result Comment: [place] Glucose Reference Range is dependent on time and content of last meal. Glucose of more than 200 mg/dL in a nonstressed, ambulatory subject supports the diagnosis of Diabetes Mellitus. ADA recommended reference range Performed By: #### L IPID, CMP, TSH3 #### [facility] [address] [place] [id number] [place] Potassium [Moles/Vol] 4.4 mmol/L Normal 3.5-5.1 [facility] Comment on above: Order Comment: Reaso n for Exam Hyperlipidemia Performed By: #### L IPID, CMP, TSH3 #### [facility] [address] [place] [id number] [place] Protein [Mass/Vol] 6.9 g/dL Normal 6.4-8.9 [facility] Comment on above: Order Comment: Reaso n for Exam Hyperlipidemia Performed By: #### L IPID, CMP, TSH3 #### [facility] [address] [place] [id number] [place] Sodium [Moles/Vol] 141 mmol/L Normal 136-145 [facility] Comment on above: Order Comment: Reaso n for Exam Hyperlipidemia Performed By: #### L IPID, CMP, TSH3 #### [facility] [address] [place] [address] [place] Urea nitrogen [Mass/Vol] 20 mg/dL Normal 7-[address] [facility] Comment on above: Order Comment: Reaso n for Exam Hyperlipidemia Performed By: #### L IPID, CMP, TSH3 #### [facility] [address] [place] [id number] [place] Creatinine [Mass/volume] in Serum or PlasmaOrdered By: Nasrin Watson on 05-31-2023 Creatinine [Mass/Vol] 1.17 mg/dL 0.70-1.30 [facility] Eosinophils Auto (Bld) [#/Vo l]Ordered By: Nasrin Watson on 05-31-2023 Eosinophils (Bld) [#/Vol] 0.6 10*3/uL 0.0-0.[address] [facility] Eosinophils/100 WBC Auto (Bl d)Ordered By: Nasrin Watson on 05-31-2023 Eosinophils/100 WBC (Bld) 10.6 % . [facility] Erythrocyte distribution wid th Auto (RBC) [Ratio]Ordered By: Nasrin Watson on 05-31-2023 Erythrocyte distribution width (RBC) [Ratio] 14.2 % 12.0-14.[address] [facility] Globulin Calc (S) [Mass/Vol] Ordered By: Nasrin Watson on 05-31-2023 Globulin (S) [Mass/Vol] 2.5 g/dL [facility] Glucose [Mass/volume] in Ser um or PlasmaOrdered By: Nasrin Watson on 05-31-2023 Glucose [Mass/Vol] 90 mg/dL 70-100 [facility] Comment on above: ADA recommended refe rence rangeRandom Glucose Reference Range is dependent on time and content of last meal. Glucose of more than 200 mg/dL in a nonstressed, ambulatory subject supports the diagnosis of Diabetes Mellitus. Hematocrit Auto (Bld) [Volum e fraction]Ordered By: Nasrin Watson on 05-31-2023 Hematocrit (Bld) [Volume fraction] 44.8 % 38.8-50.[address] [facility] Hemoglobin [Mass/volume] in BloodOrdered By: Nasrin Watson on 05-31-2023 Hemoglobin (Bld) [Mass/Vol] 14.8 g/dL 13.0-17.[address] [facility] Leukocytes [#/volume] correc james for nucleated erythrocytes in Blood by Automated counOrdered By: Nasrin Watson on 05-31-2023 WBC corrected for nucl RBC Auto (Bld) [#/Vol] 5.8 10*3/uL 4.1-10.[address] [facility] Lipid Panelon 05-31-2023 Cholesterol [Mass/Vol] 176 mg/dL Normal 140-200 [facility] Comment on above: Order Comment: Reaso n for Exam Hyperlipidemia Result Comment: Chol less than 200 mg/dl low risk Chol 201-239 mg/dl borderline risk Chol 240 mg/dl and greater high risk Performed By: #### L IPID, CMP, TSH3 #### [facility] [address] [place] [id number] [place] Cholesterol in HDL [Mass/Vol] 48 mg/dL Normal 23-[address] [facility] Comment on above: Order Comment: Reaso n for Exam Hyperlipidemia Result Comment: HDL CHOL ATP-III CLASSIFICATION Cardiovascular Risk HDL > or equal to 60 mg/dL LOW HDL < 40 mg/dL HIGH Performed By: #### L IPID, CMP, TSH3 #### [facility] [address] [place] [address] [place] Cholesterol.total/Yasmeen sterol in HDL [Mass ratio] 3.7 {ratio} Normal <5.[address] [facility] Comment on above: Order Comment: Reaso n for Exam Hyperlipidemia Performed By: #### L IPID, CMP, TSH3 #### [facility] [address] [place] [address] [place] LDL Cholesterol,Calculated 106 mg/dL High 0-[address] [facility] Comment on above: Order Comment: Reaso n for Exam Hyperlipidemia Result Comment: LDL ATP III CLASSIFICATION LDL less than 100 mg/dL Optimal LDL 100-129 mg/dL Near or above optimal LDL 130-159 mg/dL Borderline high LDL 160-189 mg/dL High LDL greater than 189 mg/dL Very high Performed By: #### L IPID, CMP, TSH3 #### [facility] [address] [place] [id number] [place] Triglyceride w/Reflex 109 mg/dL Normal 0-149 [facility] Comment on above: Order Comment: Reaso n for Exam Hyperlipidemia Result Comment: TRIG ATP III CLASSIFICATION TRIG less than 150 mg/dL Normal TRIG 150-199 mg/dL Borderline high TRIG 200-500 mg/dL High TRIG greater than 500 mg/dL Very high Standard traceable to the Center for Disease Conrtrol and Prevention (CDC) test method. Performed By: #### L IPID, CMP, TSH3 #### [facility] [address] VLDL CHOLESTEROL 21 mg/dL Normal [facility] Comment on above: Order Comment: Reaso n for Exam Hyperlipidemia Performed By: #### L IPID, CMP, TSH3 #### [facility] [address] [place] [address] [place] Lymphocytes Auto (Bld) [#/Vo l]Ordered By: Nasrin Watson on 05-31-2023 Lymphocytes (Bld) [#/Vol] 0.8 10*3/uL 1.00-4.[address] [facility] Lymphocytes/100 WBC Auto (Bl d)Ordered By: Nasrin Watson on 05-31-2023 Lymphocytes/100 WBC (Bld) 14.6 % . [facility] MCH Auto (RBC) [Entitic mass ]Ordered By: Nasrin Watson on 05-31-2023 MCH (RBC) [Entitic mass] 29.1 pg 27.5-35.[address] [facility] MCHC Auto (RBC) [Mass/Vol]Or dered By: Nasrin Watson on 05-31-2023 MCHC (RBC) [Mass/Vol] 33.2 g/dL 32.5-35.6 [facility] MCV Auto (RBC) [Entitic vol] Ordered By: Nasrin Watson on 05-31-2023 MCV (RBC) [Entitic vol] 87.7 fL 83.5-101 F [facility] Monocytes Auto (Bld) [#/Vol] Ordered By: Nasrin Watson on 05-31-2023 Monocytes (Bld) [#/Vol] 0.6 10*3/uL 0.0-0.[address] [facility] Monocytes/100 WBC Auto (Bld) Ordered By: Nasrin Watson on 05-31-2023 Monocytes/100 WBC (Bld) 10.9 % . F [facility] Neutrophils Auto (Bld) [#/Vo l]Ordered By: Nasrin Watson on 05-31-2023 Neutrophils (Bld) [#/Vol] 3.7 10*3/uL 1.8-7.[address] [facility] Neutrophils/100 WBC Auto (Bl d)Ordered By: Nasrin Watson on 05-31-2023 Neutrophils/100 WBC (Bld) 63.3 % . [facility] No Panel InformationOrdered By: Nasrin Watson on 05-31-2023 Estimated GFR (CKD-EPI) > 60.0 mL/Min [facility] Creatinine Clearance (Chem N/A [facility] Nucleated erythrocytes [Pres ence] in Blood by Automated countOrdered By: Nasrin Watson on 05-31-2023 Nucleated RBC Auto Ql (Bld) 0.2 /100{WBC} 0-0.[address] [facility] PSA Screen (Yearly Only)on 0 05-31-2023 PSA Screen (Yearly Only) 4.690 ng/mL High 0.000-4.[address] [facility] Comment on above: Order Comment: Reaso n for Exam Screening for prostate cancer Is patient <50 yrs? Medicare does not pay <50.: N What is the date of the last PSA Screen?: 125343 Is Medicare the insurance?: Y Did you verify eligibility (Dx Time) check TestViewGp: YES TO ALL Result Comment: PERF ORMED BY: [facility] [address] [place] [address] PATHOLOGIST RESPIRATORY CLINICIAN VANESSA AWAD M.D. Performed By: #### P SAS ####[facility] [place] [id number] [facility] Platelet mean volume Auto (B ld) [Entitic vol]Ordered By: Nasrin Wtason on 05-31-2023 Platelet mean volume (Bld) [Entitic vol] 7.9 fL 6.6-10.[address] [facility] Platelets Auto (Bld) [#/Vol] Ordered By: Nasrin Watson on 05-31-2023 Platelets (Bld) [#/Vol] 247 10*3/uL 150-[address] [facility] Potassium [Moles/volume] in Serum or PlasmaOrdered By: Nasrin Watson on 05-31-2023 Potassium [Moles/Vol] 4.4 mmol/L 3.5-5.1 [facility] Prostate specific Ag [Mass/v olume] in Serum or PlasmaOrdered By: Nasrin Watson on 05-31-2023 Prostate specific Ag [Mass/Vol] 4.690 ng/mL 0.000-4.[address] [facility] Protein [Mass/volume] in Ser um or PlasmaOrdered By: Nasrin Watson on 05-31-2023 Protein [Mass/Vol] 6.9 g/dL 6.4-8.9 [facility] RBC Auto (Bld) [#/Vol]Ordere d By: Nasrin Watson on 05-31-2023 RBC (Bld) [#/Vol] 5.10 10*6/uL 3.90-5.60 [facility] Serum or plasma albumin/glob ulin mass ratioOrdered By: Nasrin Watson on 05-31-2023 Albumin/Globulin [Mass ratio] 1.8 {ratio} [facility] Serum or plasma anion gap de terminationOrdered By: Nasrin Watson on 05-31-2023 Anion gap [Moles/Vol] 11.7 mmol/L 6.0-15.0 [facility] Serum or plasma high density lipoprotein (HDL) cholesterol measurementOrdered By: Nasrin Watson on 05-31-2023 Cholesterol in HDL [Mass/Vol] 48 mg/dL 23-[address] [facility] Comment on above: HDL CHOL ATP-III CLA SSIFICATION Cardiovascular RiskHDL > or equal to 60 mg/dL LOWHDL < 40 mg/dL HIGH Serum or plasma total choles terol/high density lipoprotein (HDL) cholesterol mass ratOrdered By: Nasrin Watson on 05-31-2023 Cholesterol.total/Yasmeen sterol in HDL [Mass ratio] 3.7 {ratio} <5.[address] [facility] Sodium [Moles/volume] in Ser um or PlasmaOrdered By: Nasrin Watson on 05-31-2023 Sodium [Moles/Vol] 141 mmol/L 136-145 [facility] Thyroid Stimulating Hormoneo n 05-31-2023 TSH Qn 3.48 m[IU]/L Normal 0.45-5.[address] [facility] Comment on above: Order Comment: Reaso n for Exam Hyperlipidemia Result Comment: PERF ORMED BY: [facility] [address] [place] [id number] PATHOLOGIST RESPIRATORY CLINICIAN VANESSA AWAD M.D. Performed By: #### L IPID, CMP, TSH3 ####[facility] [place] [id number] [facility] Thyrotropin [Units/volume] i n Serum or PlasmaOrdered By: Nasrin Watson on 05-31-2023 TSH Qn 3.48 m[IU]/L 0.45-5.[address] [facility] Triglyceride [Mass/volume] i n Serum or PlasmaOrdered By: Nasrin Watson on 05-31-2023 Triglyceride [Mass/Vol] 109 mg/dL 0-149 [facility] Comment on above: TRIG ATP III CLASSIF ICATIONTRIG less than 150 mg/dL NormalTRIG 150-199 mg/dL Borderline highTRIG 200-500 mg/dL High TRIG greater than 500 mg/dL Very highStandard traceable to the Center for Disease Conrtrol and Prevention (CDC) test method. Urea nitrogen [Mass/volume] in Serum or PlasmaOrdered By: Nasrin Watson on 05-31-2023 Urea nitrogen [Mass/Vol] 20 mg/dL 7-[address] [facility] WBC Auto (Bld) [#/Vol]Ordere d By: Nasrin Watson on 05-31-2023 WBC (Bld) [#/Vol] 5.8 10*3/uL 4.1-10.5 [facility] Sanchez 12-31-2022 L -- ---- Specimen: Received: 12/31/22 Status: KALIA Horne Num: [id number] Spec Type: Surgical Subm Dr: Kameron Marin MD Tissues: A Debridement-Skin/Other Than Skin (POD) B Soft Tissue/Surgical Margin-Other than Tumor,Mass,Lip or Linh (PERIUMBILICAL Procedures: HE/2, Gross/Micro L4, Gross/Micro L3, AE1-AE3/2 ---- Age/ Patient Sex Location Account Attending Physician ---- Vasile Youssef/M [place] [id number] Kameron Marin MD ---- SPEC NUM: [id number] RECD: 12/31/22 STATUS: KALIA HORNE NUM: [id number] JULIO CÉSAR: 12/31/22- SUBM DR: Kameron Marin [...] in one cassette labeled B1. ---- Specimen: [id number] Received: 12/31/22 Status: KALIA Horne Num: [id number] Spec Type: Surgical Subm Dr: Kameron Marin MD Tissues: A Debridement-Skin/Other Than Skin (POD) B Soft Tissue/Surgical Margin-Other than Tumor,Mass,Lip or Linh (PERIUMBILICAL Procedures: HE/2, Gross/Micro L4, Gross/Micro L3, AE1-AE3/2 ---- Patient: Vasile Youssef [id number] (Continued) ---- Specimen: Received: 12/31/22 (Continued) Signed (signature on file) Savanna Serna MD 01/04/231601 ---- Specimen: Received: 12/31/22 Status: KALIA Coleen Num: [id number] Spec Type: Surgical Subm Dr: Kameron Marin MD Tissues: A Debridement-Skin/Other Than Skin (POD) B Soft Tissue/Surgical Margin-Other than Tumor,Mass,Lip or Linh (PERIUMBILICAL Procedures: HE/2, Gross/Micro L4, Gross/Micro L3, AE1-AE3/2 ---- Patient: Vasile Youssef [id number] (Continued) ---- Specimen: Received: 12/31/22 (Continued) Microscopic [...] negative for epithelial neoplastic cells. CPT Codes 52659v9, 42327, 67400 ---- ---- Specimen: Received: 12/31/22 Status: KALIA Horne Num: [id number] Spec Type: Surgical Subm Dr: Kameron Marin MD Tissues: A Debridement-Skin/Other Than Skin (POD) B Soft Tissue/Surgical Margin-Other than Tumor,Mass,Lip or Linh (PERIUMBILICAL Procedures: HE/2, Gross/Micro L4, Gross/Micro L3, AE1-AE3/2 ---- Patient: Vasile Youssef [id number] (Continued) (more content not included)... Normal [facility] Basic Metabolic Panelon 12-02 Anion gap [Moles/Vol] 13.2 mmol/L Normal 6.0-15.0 [facility] Comment on above: Performed By: #### C BC, BMP #### [place] [address] [place] Calcium [Mass/Vol] 9.6 mg/dL Normal 8.6-10.3 [facility] Comment on above: Result Comment: PERF ORMED BY: [address] [place] [address] PATHOLOGIST RESPIRATORY CLINICIAN VANESSA AWAD M.D. Performed By: #### C BC, BMP #### [facility] [address] [place] [address] [place] Chloride [Moles/Vol] 107 mmol/L Normal 98-107 [facility] Comment on above: Performed By: #### C BC, BMP #### [facility] [address] [place] [address] [place] CO2 [Moles/Vol] 24.4 mmol/L Normal 21.0-31.0 [facility] Comment on above: Performed By: #### C BC, BMP #### [facility] [address] Creatinine [Mass/Vol] 1.27 mg/dL Normal 0.70-1.30 [facility] Comment on above: Performed By: #### C BC, BMP #### [facility] [address] [place] [address] [place] GFR/1.73 sq M.predicted MDRD (S/P/Bld) [Vol rate/Area] mL/min/{1.73_m2} Normal [facility] Comment on above: Performed By: #### C BC, BMP #### [facility] [address] Glucose [Mass/Vol] 78 mg/dL Normal 74-109 [facility] Comment on above: Result Comment: [facility] Glucose Reference Range is dependent on time and content of last meal. Glucose of more than 200 mg/dL in a nonstressed, ambulatory subject supports the diagnosis of Diabetes Mellitus. ADA recommended reference range Performed By: #### C BC, BMP #### [facility] [address] Potassium [Moles/Vol] 4.6 mmol/L Normal 3.5-5.1 [facility] Comment on above: Performed By: #### C BC, BMP #### [facility] [address] [place] [address] [place] Sodium [Moles/Vol] 140 mmol/L Normal 136-145 [facility] Comment on above: Performed By: #### C BC, BMP #### [facility] [address] [place] [address] [place] Urea nitrogen [Mass/Vol] 22 mg/dL Normal 7-[address] [facility] Comment on above: Performed By: #### C BC, BMP #### [facility] [address] [place] [address] [place] Basophils Auto (Bld) [#/Vol] Ordered By: Kameron Marin on 12-18-2022 Basophils (Bld) [#/Vol] 0.0 10*3/uL 0.0-0.[address] [facility] Basophils/100 WBC Auto (Bld) Ordered By: Kameron Marin on 12-18-2022 Basophils/100 WBC (Bld) 0.6 % . F [facility] Calcium [Mass/volume] in Ser um or PlasmaOrdered By: Kameron Marin on 12-18-2022 Calcium [Mass/Vol] 9.6 mg/dL 8.6-10.3 [facility] Carbon dioxide, total [Moles /volume] in Serum or PlasmaOrdered By: Kameron Marin on 12-18-2022 CO2 [Moles/Vol] 24.4 mmol/L 21.0-31.0 [facility] Chloride [Moles/volume] in S deion or PlasmaOrdered By: Kameron Marin on 12-18-2022 Chloride [Moles/Vol] 107 mmol/L 98-107 [facility] Complete Blood Count Auto Di ffon 12-18-2022 Basophils (Bld) [#/Vol] 0.0 10*3/uL Normal 0.0-0.[address] [facility] Comment on above: Result Comment: PERF ORMED BY: [place] [address] PATHOLOGIST RESPIRATORY CLINICIAN VANESSA AWAD M.D. Performed By: #### C BLANKA, BMP #### [address] Basophils/100 WBC (Bld) 0.6 % Normal . F [facility] Comment on above: Performed By: #### C BC, BMP #### [facility] [address] [place] [address] [place] Eosinophils (Bld) [#/Vol] 0.5 10*3/uL High 0.0-0.[address] [facility] Comment on above: Performed By: #### C BC, BMP #### [place] [address] [place] Eosinophils/100 WBC (Bld) 9.5 % Normal . [facility] Comment on above: Performed By: #### C BC, BMP #### [facility] [address] Erythrocyte distribution width (RBC) [Ratio] 14.6 % Normal 12.0-14.[address] [facility] Comment on above: Performed By: #### C BC, BMP #### [address] Hematocrit (Bld) [Volume fraction] 46.0 % Normal 38.8-50.[address] [facility] Comment on above: Performed By: #### C BC, BMP #### [address] Hemoglobin (Bld) [Mass/Vol] 15.2 g/dL Normal 13.0-17.[address] [facility] Comment on above: Performed By: #### C BC, BMP #### [address] Lymphocytes (Bld) [#/Vol] 0.8 10*3/uL Low 1.00-4.[address] [facility] Comment on above: Performed By: #### C BC, BMP #### [address] Lymphocytes/100 WBC (Bld) 13.8 % Normal . [facility] Comment on above: Performed By: #### C BC, BMP #### [address] MCH (RBC) [Entitic mass] 29.1 pg Normal 27.5-35.[address] [facility] Comment on above: Performed By: #### C BC, BMP #### [address] MCV (RBC) [Entitic vol] 87.7 fL Normal 83.5-101 F [facility] Comment on above: Performed By: #### C BC, BMP #### [address] Mean Corpuscular HGB Conc 33.2 g/dL Normal 32.5-35.[address] [facility] Comment on above: Performed By: #### C BC, BMP #### [address] Monocytes (Bld) [#/Vol] 0.7 10*3/uL Normal 0.0-0.[address] [facility] Comment on above: Performed By: #### C BC, BMP #### [facility] [address] Monocytes/100 WBC (Bld) 12.8 % Normal . [facility] Comment on above: Performed By: #### C BC, BMP #### [facility] [address] Neutrophils (Bld) [#/Vol] 3.6 10*3/uL Normal 1.8-7.[address] [facility] Comment on above: Performed By: #### C BC, BMP #### [address] Neutrophils/100 WBC (Bld) 63.3 % Normal . [facility] Comment on above: Performed By: #### C BC, BMP #### [address] NRBC% 0.0 /100{WBC} Normal 0-0.[address] [facility] Comment on above: Performed By: #### C BC, BMP #### [address] Platelet mean volume (Bld) [Entitic vol] 7.4 fL Normal 6.6-10.[address] [facility] Comment on above: Performed By: #### C BC, BMP #### [address] Platelets (Bld) [#/Vol] 280 10*3/uL Normal 150-[address] [facility] Comment on above: Performed By: #### C BC, BMP #### [place] [address] [place] RBC (Bld) [#/Vol] 5.24 10*6/uL Normal 3.90-5.60 [facility] Comment on above: Performed By: #### C BC, BMP #### [place] [address] [place] WBC (Bld) [#/Vol] 5.7 10*3/uL Normal 4.1-10.5 [facility] Comment on above: Performed By: #### C BC, JUDIT #### [address] Creatinine [Mass/volume] in Serum or PlasmaOrdered By: Kameron Marin on 12-18-2022 Creatinine [Mass/Vol] 1.27 mg/dL 0.70-1.30 [facility] ECG 12 lead ECGon 12-18-2022 ECG 12 lead ECG [facility] Main [place] [address] [place] [address] Electrocardiograph Report Signed Patient: Vasile Youssef MR#: [id number] 2 : 1955 Acct:[id number] Age/Sex: 67 / M ADM Date: 12/18/22 Loc: Room: Type: [facility] Attending Dr: Kameron Marin MD Ordering Provider: [...] By Jabier Aguila DO 12/[address] [facility] Eosinophils Auto (Bld) [#/Vo l]Ordered By: Kameron Marin on 12-18-2022 Eosinophils (Bld) [#/Vol] 0.5 10*3/uL 0.0-0.[address] [facility] Eosinophils/100 WBC Auto (Bl d)Ordered By: Kameron Marin on 12-18-2022 Eosinophils/100 WBC (Bld) 9.5 % . [facility] Erythrocyte distribution wid th Auto (RBC) [Ratio]Ordered By: Kameron Marin on 12-18-2022 Erythrocyte distribution width (RBC) [Ratio] 14.6 % 12.0-14.[address] [facility] Glucose [Mass/volume] in Ser um or PlasmaOrdered By: Kameron Marin on 12-18-2022 Glucose [Mass/Vol] 78 mg/dL 74-109 [facility] Comment on above: ADA recommended refe rence rangeRandom Glucose Reference Range is dependent on time and content of last meal. Glucose of more than 200 mg/dL in a nonstressed, ambulatory subject supports the diagnosis of Diabetes Mellitus. Hematocrit Auto (Bld) [Volum e fraction]Ordered By: Kameron Marin on 12-18-2022 Hematocrit (Bld) [Volume fraction] 46.0 % 38.8-50.[address] [facility] Hemoglobin [Mass/volume] in BloodOrdered By: Kameron Marin on 12-18-2022 Hemoglobin (Bld) [Mass/Vol] 15.2 g/dL 13.0-17.[address] [facility] Laboratory - Chemistry and C hemistry - challengeOrdered By: Kameron Marin on 12-18-2022 GFR/1.73 sq M.predicted MDRD (S/P/Bld) [Vol rate/Area] mL/min/{1.73_m2} [facility] Leukocytes [#/volume] correc james for nucleated erythrocytes in Blood by Automated counOrdered By: Kameron Marin on 12-18-2022 WBC corrected for nucl RBC Auto (Bld) [#/Vol] 5.7 10*3/uL 4.1-10.[address] [facility] Lymphocytes Auto (Bld) [#/Vo l]Ordered By: Kameron Marin on 12-18-2022 Lymphocytes (Bld) [#/Vol] 0.8 10*3/uL 1.00-4.[address] [facility] Lymphocytes/100 WBC Auto (Bl d)Ordered By: Kameron Marin on 12-18-2022 Lymphocytes/100 WBC (Bld) 13.8 % . [facility] MCH Auto (RBC) [Entitic mass ]Ordered By: Kameron Marin on 12-18-2022 MCH (RBC) [Entitic mass] 29.1 pg 27.5-35.[address] [facility] MCHC Auto (RBC) [Mass/Vol]Or dered By: Kameron Marin on 12-18-2022 MCHC (RBC) [Mass/Vol] 33.2 g/dL 32.5-35.6 [facility] MCV Auto (RBC) [Entitic vol] Ordered By: Kameron Marin on 12-18-2022 MCV (RBC) [Entitic vol] 87.7 fL 83.5-101 F [facility] Monocytes Auto (Bld) [#/Vol] Ordered By: Kameron Marin on 12-18-2022 Monocytes (Bld) [#/Vol] 0.7 10*3/uL 0.0-0.[address] [facility] Monocytes/100 WBC Auto (Bld) Ordered By: Kameron Marin on 12-18-2022 Monocytes/100 WBC (Bld) 12.8 % . [facility] Neutrophils Auto (Bld) [#/Vo l]Ordered By: Kameron Marin on 12-18-2022 Neutrophils (Bld) [#/Vol] 3.6 10*3/uL 1.8-7.[address] [facility] Neutrophils/100 WBC Auto (Bl d)Ordered By: Kameron Marin on 12-18-2022 Neutrophils/100 WBC (Bld) 63.3 % . [facility] No Panel InformationOrdered By: Kameron Marin on 12-18-2022 Pharmacy Creatinine Clearance (Chem N/A [facility] Nucleated erythrocytes [Pres ence] in Blood by Automated countOrdered By: Kameron Marin on 12-18-2022 Nucleated RBC Auto Ql (Bld) 0.0 /100{WBC} 0-0.[address] [facility] Platelet mean volume Auto (B ld) [Entitic vol]Ordered By: Kameron Marin on 12-18-2022 Platelet mean volume (Bld) [Entitic vol] 7.4 fL 6.6-10.[address] [facility] Platelets Auto (Bld) [#/Vol] Ordered By: Kameron Marin on 12-18-2022 Platelets (Bld) [#/Vol] 280 10*3/uL 150-[address] [facility] Potassium [Moles/volume] in Serum or PlasmaOrdered By: Kameron Marin on 12-18-2022 Potassium [Moles/Vol] 4.6 mmol/L 3.5-5.1 [facility] RBC Auto (Bld) [#/Vol]Ordere d By: Kameron Marin on 12-18-2022 RBC (Bld) [#/Vol] 5.24 10*6/uL 3.90-5.60 [facility] Serum or plasma anion gap de terminationOrdered By: Kameron Marin on 12-18-2022 Anion gap [Moles/Vol] 13.2 mmol/L 6.0-15.0 [facility] Sodium [Moles/volume] in Ser um or PlasmaOrdered By: Kameron Marin on 12-18-2022 Sodium [Moles/Vol] 140 mmol/L 136-145 [facility] Urea nitrogen [Mass/volume] in Serum or PlasmaOrdered By: Kameron Marin on 12-18-2022 Urea nitrogen [Mass/Vol] 22 mg/dL 7-[address] [facility] WBC Auto (Bld) [#/Vol]Ordere d By: Kameron Marin on 12-18-2022 WBC (Bld) [#/Vol] 5.7 10*3/uL 4.1-10.5 [facility] US abdomen limitedon 023 US abdomen limited [facility] [place] [address] Ultrasound Report Signed Patient: Vasile Youssef MR#: [id number] 2 : 1955 Acct:[id number] Age/Sex: 67 / M ADM Date: 12/08/22 Loc: UL Room: Type: [facility] CLI Attending Dr: Kameron Marin [...] Jabier Leblanc M.D.12/08/2022 1:18 PM Dictation Location: [place] [address] Tech: Karlalilibeth Cook Transcribed By: BRENDON 12/08/22 1318 Dictated By: Jabier Leblanc DO 12/08/22 131 Signed By: 12/08/[address] [facility] Albumin [Mass/volume] in Ser um or PlasmaOrdered By: Nasrin Watson on 09-30-2022 Albumin [Mass/Vol] 4.2 g/dL 3.2-5.5 [facility] Basophils Auto (Bld) [#/Vol] Ordered By: Nasrin Watson on 09-30-2022 Basophils (Bld) [#/Vol] 0.0 10*3/uL 0.0-0.[address] [facility] Basophils/100 WBC Auto (Bld) Ordered By: Nasrin Watson on 09-30-2022 Basophils/100 WBC (Bld) 0.4 % . [facility] Cholesterol [Mass/volume] in Serum or PlasmaOrdered By: Nasrin Watson on 09-30-2022 Cholesterol [Mass/Vol] 181 mg/dL 140-200 [facility] Comment on above: Chol less than 200 m g/dl low riskChol 201-239 mg/dl borderline riskChol 240 mg/dl and greater high risk Cholesterol in LDL Calc [Mas s/Vol]Ordered By: Nasrin Watson on 09-30-2022 Cholesterol in LDL [Mass/Vol] 114 mg/dL 0-[address] [facility] Comment on above: LDL ATP III CLASSIFI CATIONLDL less than 100 mg/dL OptimalLDL 100-129 mg/dL Near or above optimalLDL 130-159 mg/dL Borderline highLDL 160-189 mg/dL HighLDL greater than 189 mg/dL Very high Cholesterol in VLDL Calc [Ma ss/Vol]Ordered By: Nasrin Watson on 09-30-2022 Cholesterol in VLDL [Mass/Vol] 17 mg/dL [facility] Complete Blood Count Auto Di ffon 09-30-2022 Basophils (Bld) [#/Vol] 0.0 10*3/uL Normal 0.0-0.[address] [facility] Comment on above: Order Comment: Reaso n for Exam Hyperlipidemia Result Comment: PERF ORMED BY: [place] [address] PATHOLOGIST RESPIRATORY CLINICIAN VANESSA AWAD M.D. Performed By: #### C BC #### [facility] [address] [place] [address] [place] Basophils/100 WBC (Bld) 0.4 % Normal . [facility] Comment on above: Order Comment: Reaso n for Exam Hyperlipidemia Performed By: #### C BC #### [facility] [address] [place] [address] [place] Eosinophils (Bld) [#/Vol] 0.6 10*3/uL High 0.0-0.[address] [facility] Comment on above: Order Comment: Reaso n for Exam Hyperlipidemia Performed By: #### C BC #### [facility] [address] [place] [address] [place] Eosinophils/100 WBC (Bld) 7.9 % Normal . [facility] Comment on above: Order Comment: Reaso n for Exam Hyperlipidemia Performed By: #### C BC #### [facility] [address] [place] [address] [place] Erythrocyte distribution width (RBC) [Ratio] 14.1 % Normal 12.0-14.[address] [facility] Comment on above: Order Comment: Reaso n for Exam Hyperlipidemia Performed By: #### C BC #### [facility] [address] Hematocrit (Bld) [Volume fraction] 48.9 % Normal 38.8-50.[address] [facility] Comment on above: Order Comment: Reaso n for Exam Hyperlipidemia Performed By: #### C BC #### [address] Hemoglobin (Bld) [Mass/Vol] 15.9 g/dL Normal 13.0-17.[address] [facility] Comment on above: Order Comment: Reaso n for Exam Hyperlipidemia Performed By: #### C BC #### [address] Lymphocytes (Bld) [#/Vol] 0.8 10*3/uL Low 1.00-4.[address] [facility] Comment on above: Order Comment: Reaso n for Exam Hyperlipidemia Performed By: #### C BC #### [address] Lymphocytes/100 WBC (Bld) 10.9 % Normal . [facility] Comment on above: Order Comment: Reaso n for Exam Hyperlipidemia Performed By: #### C BC #### [address] MCH (RBC) [Entitic mass] 28.9 pg Normal 27.5-35.[address] [facility] Comment on above: Order Comment: Reaso n for Exam Hyperlipidemia Performed By: #### C BC #### [address] MCV (RBC) [Entitic vol] 89.1 fL Normal 83.5-101 F [facility] Comment on above: Order Comment: Reaso n for Exam Hyperlipidemia Performed By: #### C BC #### [address] Mean Corpuscular HGB Conc 32.5 g/dL Normal 32.5-35.[address] [facility] Comment on above: Order Comment: Reaso n for Exam Hyperlipidemia Performed By: #### C BC #### [address] [place] [address] [place] Monocytes (Bld) [#/Vol] 0.7 10*3/uL Normal 0.0-0.[address] [facility] Comment on above: Order Comment: Reaso n for Exam Hyperlipidemia Performed By: #### C BC #### [facility] [address] [place] [id number] [facility] Monocytes/100 WBC (Bld) 9.3 % Normal . [facility] Comment on above: Order Comment: Reaso n for Exam Hyperlipidemia Performed By: #### C BC #### [facility] [address] [place] [address] [place] Neutrophils (Bld) [#/Vol] 5.2 10*3/uL Normal 1.8-7.[address] [facility] Comment on above: Order Comment: Reaso n for Exam Hyperlipidemia Performed By: #### C BC #### [facility] [address] [place] [address] [place] Neutrophils/100 WBC (Bld) 71.5 % Normal . [facility] Comment on above: Order Comment: Reaso n for Exam Hyperlipidemia Performed By: #### C BC #### [facility] [address] [place] [address] [place] NRBC% 0.1 /100{WBC} Normal 0-0.[address] [facility] Comment on above: Order Comment: Reaso n for Exam Hyperlipidemia Performed By: #### C BC #### [facility] [address] [place] [address] [place] Platelet mean volume (Bld) [Entitic vol] 7.7 fL Normal 6.6-10.[address] [facility] Comment on above: Order Comment: Reaso n for Exam Hyperlipidemia Performed By: #### C BC #### [facility] [address] [place] [id number] [place] Platelets (Bld) [#/Vol] 293 10*3/uL Normal 150-[address] [facility] Comment on above: Order Comment: Reaso n for Exam Hyperlipidemia Performed By: #### C BC #### [facility] [address] [place] [address] [place] RBC (Bld) [#/Vol] 5.49 10*6/uL Normal 3.90-5.60 [facility] Comment on above: Order Comment: Reaso n for Exam Hyperlipidemia Performed By: #### C BC #### [facility] [address] WBC (Bld) [#/Vol] 7.2 10*3/uL Normal 4.1-10.5 [facility] Comment on above: Order Comment: Reaso n for Exam Hyperlipidemia Performed By: #### C BC #### [facility] [address] Comprehensive Metabolic Pane sanchez 09-30-2022 Albumin [Mass/Vol] 4.2 g/dL Normal 3.2-5.5 [facility] Comment on above: Order Comment: Reaso n for Exam Hyperlipidemia Performed By: #### T SH3, LIPID, CMP ####[address] Albumin/Globulin [Mass ratio] 1.4 {ratio} Normal [facility] Comment on above: Order Comment: Reaso n for Exam Hyperlipidemia Performed By: #### T SH3, LIPID, CMP ####[address] ALP [Catalytic activity/Vol] 68 U/L Normal 32-[address] [facility] Comment on above: Order Comment: Reaso n for Exam Hyperlipidemia Performed By: #### T SH3, LIPID, CMP ####[place] [id number] [facility] ALT [Catalytic activity/Vol] 28 U/L Normal 10-[address] [facility] Comment on above: Order Comment: Reaso n for Exam Hyperlipidemia Performed By: #### T SH3, LIPID, CMP ####[place] [id number] [facility] Anion gap [Moles/Vol] 12.5 mmol/L Normal 6.0-15.0 [facility] Comment on above: Order Comment: Reaso n for Exam Hyperlipidemia Performed By: #### T SH3, LIPID, CMP ####[address] [place] [address] [facility] AST [Catalytic activity/Vol] 23 U/L Normal 10-[address] [facility] Comment on above: Order Comment: Reaso n for Exam Hyperlipidemia Performed By: #### T SH3, LIPID, CMP ####[address] [address] [facility] Bilirubin [Mass/Vol] 0.8 mg/dL Normal 0.3-1.2 [facility] Comment on above: Order Comment: Reaso n for Exam Hyperlipidemia Performed By: #### T SH3, LIPID, CMP ####[address] [address] [facility] Calcium [Mass/Vol] 9.5 mg/dL Normal 8.2-10.2 [facility] Comment on above: Order Comment: Reaso n for Exam Hyperlipidemia Performed By: #### T SH3, LIPID, CMP ####[address] [address] [facility] Chloride [Moles/Vol] 105 mmol/L Normal 95-114 [facility] Comment on above: Order Comment: Reaso n for Exam Hyperlipidemia Performed By: #### T SH3, LIPID, CMP ####[address] [address] [facility] CO2 [Moles/Vol] 26.8 mmol/L Normal 22.0-30.0 [facility] Comment on above: Order Comment: Reaso n for Exam Hyperlipidemia Performed By: #### T SH3, LIPID, CMP ####[address] [address] [facility] Creatinine [Mass/Vol] 1.20 mg/dL Normal 0.64-1.27 [facility] Comment on above: Order Comment: Reaso n for Exam Hyperlipidemia Performed By: #### T SH3, LIPID, CMP ####[address] [address] [facility] Estimated GFR ( Cindi > [address] [facility] Comment on above: Order Comment: Reaso n for Exam Hyperlipidemia Result Comment: GFR estimated reference range: According to KDOQI guidelines, <60 ml/min/1.73m2 is sufficient to diagnose a patient with chronic kidney disease. Performed By: #### T SH3, LIPID, CMP ####[place] [id number] [place] [address] [facility] Estimated GFR (Non- Am > [address] [facility] Comment on above: Order Comment: Reaso n for Exam Hyperlipidemia Performed By: #### T SH3, LIPID, CMP ####[place] [address] [place] [address] [facility] Globulin (S) [Mass/Vol] 3.1 g/dL Normal [facility] Comment on above: Order Comment: Reaso n for Exam Hyperlipidemia Performed By: #### T SH3, LIPID, CMP ####[place] [id number] [place] [id number] [facility] Glucose [Mass/Vol] 87 mg/dL Normal 70-100 [facility] Comment on above: Order Comment: Reaso n for Exam Hyperlipidemia Result Comment: [facility] Glucose Reference Range is dependent on time and content of last meal. Glucose of more than 200 mg/dL in a nonstressed, ambulatory subject supports the diagnosis of Diabetes Mellitus. ADA recommended reference range Performed By: #### T SH3, LIPID, CMP ####[place] [address] [place] [address] [facility] Potassium [Moles/Vol] 4.3 mmol/L Normal 3.5-5.1 [facility] Comment on above: Order Comment: Reaso n for Exam Hyperlipidemia Performed By: #### T SH3, LIPID, CMP ####[address] [address] [facility] Protein [Mass/Vol] 7.3 g/dL Normal 6.1-7.9 [facility] Comment on above: Order Comment: Reaso n for Exam Hyperlipidemia Performed By: #### T SH3, LIPID, CMP ####[place] [address] [place] [address] [facility] Sodium [Moles/Vol] 140 mmol/L Normal 136-146 [facility] Comment on above: Order Comment: Reaso n for Exam Hyperlipidemia Performed By: #### T SH3, LIPID, CMP ####[address] [address] [facility] Urea nitrogen [Mass/Vol] 14 mg/dL Normal 9-[address] [facility] Comment on above: Order Comment: Keaton larry for Exam Hyperlipidemia Performed By: #### T SH3, LIPID, CMP ####[facility] [id number] [place] [id number] [facility] Creatinine and Glomerular fi ltration rate.predicted panel (S/P/Bld)Ordered By: Nasrin Watson on 09-30-2022 Creatinine [Mass/Vol] 1.20 mg/dL 0.64-1.27 [facility] Eosinophils Auto (Bld) [#/Vo l]Ordered By: Nasrin Watson on 09-30-2022 Eosinophils (Bld) [#/Vol] 0.6 10*3/uL 0.0-0.[address] [facility] Eosinophils/100 WBC Auto (Bl d)Ordered By: Nasrin Watson on 09-30-2022 Eosinophils/100 WBC (Bld) 7.9 % . [facility] Erythrocyte distribution wid th Auto (RBC) [Ratio]Ordered By: Nasrin Watson on 09-30-2022 Erythrocyte distribution width (RBC) [Ratio] 14.1 % 12.0-14.[address] [facility] Estimated glomerular filtrat ion rate (GFR) non- AmericanOrdered By: Nasrin Watson on 09-30-2022 GFR/1.73 sq M.predicted among non-blacks MDRD (S/P/Bld) [Vol rate/Area] > 60 mL/Min [facility] Globulin Calc (S) [Mass/Vol] Ordered By: Nasrin Watson on 09-30-2022 Globulin (S) [Mass/Vol] 3.1 g/dL F [facility] Hematocrit Auto (Bld) [Volum e fraction]Ordered By: Nasrin Watson on 09-30-2022 Hematocrit (Bld) [Volume fraction] 48.9 % 38.8-50.[address] [facility] Hemoglobin [Mass/volume] in BloodOrdered By: Nasrin Watson on 09-30-2022 Hemoglobin (Bld) [Mass/Vol] 15.9 g/dL 13.0-17.[address] [facility] Leukocytes [#/volume] correc james for nucleated erythrocytes in Blood by Automated counOrdered By: Nasrin Watson on 09-30-2022 WBC corrected for nucl RBC Auto (Bld) [#/Vol] 7.2 10*3/uL 4.1-10.[address] [facility] Lipid Panelon 09-30-2022 Cholesterol [Mass/Vol] 181 mg/dL Normal 140-200 [facility] Comment on above: Order Comment: Reaso n for Exam Hyperlipidemia Result Comment: Chol less than 200 mg/dl low risk Chol 201-239 mg/dl borderline risk Chol 240 mg/dl and greater high risk Performed By: #### T SH3, LIPID, CMP ####[facility] [id number] [place] [id number] [facility] Cholesterol in HDL [Mass/Vol] 50 mg/dL Normal 29-[address] [facility] Comment on above: Order Comment: Reaso n for Exam Hyperlipidemia Result Comment: HDL CHOL ATP-III CLASSIFICATION Cardiovascular Risk HDL > or equal to 60 mg/dL LOW HDL < 40 mg/dL HIGH Performed By: #### T SH3, LIPID, CMP ####[facility] [id number] [place] [address] [facility] Cholesterol.total/Yasmeen sterol in HDL [Mass ratio] 3.6 {ratio} Normal <5.[address] [facility] Comment on above: Order Comment: Leso n for Exam Hyperlipidemia Performed By: #### T SH3, LIPID, CMP ####[facility] [id number] [place] [address] [facility] LDL Cholesterol,Calculated 114 mg/dL High 0-[address] [facility] Comment on above: Order Comment: Reaso n for Exam Hyperlipidemia Result Comment: LDL ATP III CLASSIFICATION LDL less than 100 mg/dL Optimal LDL 100-129 mg/dL Near or above optimal LDL 130-159 mg/dL Borderline high LDL 160-189 mg/dL High LDL greater than 189 mg/dL Very high Performed By: #### T SH3, LIPID, CMP ####[facility] [id number] [place] [address] [facility] Triglyceride w/Reflex 85 mg/dL Normal 35-149 [facility] Comment on above: Order Comment: Reaso n for Exam Hyperlipidemia Result Comment: TRIG ATP III CLASSIFICATION TRIG less than 150 mg/dL Normal TRIG 150-199 mg/dL Borderline high TRIG 200-500 mg/dL High TRIG greater than 500 mg/dL Very high Standard traceable to the Center for Disease Conrtrol and Prevention (CDC) test method. Performed By: #### T SH3, LIPID, CMP ####[facility] [id number] VLDL CHOLESTEROL 17 mg/dL Normal [facility] Comment on above: Order Comment: Reaso n for Exam Hyperlipidemia Performed By: #### T SH3, LIPID, CMP ####[facility] [id number] [place] [id number] [facility] Lymphocytes Auto (Bld) [#/Vo l]Ordered By: Nasrin Watson on 09-30-2022 Lymphocytes (Bld) [#/Vol] 0.8 10*3/uL 1.00-4.[address] [facility] Lymphocytes/100 WBC Auto (Bl d)Ordered By: Nasrin Watson on 09-30-2022 Lymphocytes/100 WBC (Bld) 10.9 % . [facility] MCH Auto (RBC) [Entitic mass ]Ordered By: Nasrin Watson on 09-30-2022 MCH (RBC) [Entitic mass] 28.9 pg 27.5-35.[address] [facility] MCHC Auto (RBC) [Mass/Vol]Or dered By: Nasrin Watson on 09-30-2022 MCHC (RBC) [Mass/Vol] 32.5 g/dL 32.5-35.6 [facility] MCV Auto (RBC) [Entitic vol] Ordered By: Nasrin Watson on 09-30-2022 MCV (RBC) [Entitic vol] 89.1 fL 83.5-101 F [facility] Monocytes Auto (Bld) [#/Vol] Ordered By: Nasrin Watson on 09-30-2022 Monocytes (Bld) [#/Vol] 0.7 10*3/uL 0.0-0.[address] [facility] Monocytes/100 WBC Auto (Bld) Ordered By: Nasrin Watson on 09-30-2022 Monocytes/100 WBC (Bld) 9.3 % . [facility] Neutrophils Auto (Bld) [#/Vo l]Ordered By: Nasrin Watson on 09-30-2022 Neutrophils (Bld) [#/Vol] 5.2 10*3/uL 1.8-7.[address] [facility] Neutrophils/100 WBC Auto (Bl d)Ordered By: Nasrin Watson on 09-30-2022 Neutrophils/100 WBC (Bld) 71.5 % . [facility] No Panel InformationOrdered By: Nasrin Watson on 09-30-2022 Estimated GFR () > 60 mL/Min [facility] Comment on above: GFR estimated refere nce range: According to KDOQI guidelines, <60 ml/min/1.73m2 is sufficient to diagnose a patient with chronic kidney disease. Pharmacy Creatinine Clearance (Chem N/A [facility] Nucleated erythrocytes [Pres ence] in Blood by Automated countOrdered By: Nasrin Watson on 09-30-2022 Nucleated RBC Auto Ql (Bld) 0.1 /100{WBC} 0-0.[address] [facility] Platelet mean volume Auto (B ld) [Entitic vol]Ordered By: Nasrin Watson on 09-30-2022 Platelet mean volume (Bld) [Entitic vol] 7.7 fL 6.6-10.[address] [facility] Platelets Auto (Bld) [#/Vol] Ordered By: Nasrin Watson on 09-30-2022 Platelets (Bld) [#/Vol] 293 10*3/uL 150-[address] [facility] Protein [Mass/volume] in Ser um or PlasmaOrdered By: Nasrin Watson on 09-30-2022 Protein [Mass/Vol] 7.3 g/dL 6.1-7.9 [facility] RBC Auto (Bld) [#/Vol]Ordere d By: Nasrin Watson on 09-30-2022 RBC (Bld) [#/Vol] 5.49 10*6/uL 3.90-5.60 [facility] Serum or plasma alanine mckeon otransferase measurement without P-5'-P (enzymatic activiOrdered By: Nasrin Watson on 09-30-2022 ALT No additional P-5'-P [Catalytic activity/Vol] 28 U/L 10-[address] [facility] Serum or plasma albumin/glob ulin mass ratioOrdered By: Nasrin Watson on 09-30-2022 Albumin/Globulin [Mass ratio] 1.4 {ratio} [facility] Serum or plasma alkaline di sphatase measurement (enzymatic activity/volume)Ordered By: Nasrin Watson on 09-30-2022 ALP [Catalytic activity/Vol] 68 U/L 32-[address] [facility] Serum or plasma anion gap de terminationOrdered By: Nasrin Watson on 09-30-2022 Anion gap [Moles/Vol] 12.5 mmol/L 6.0-15.0 [facility] Serum or plasma aspartate am inotransferase measurement (enzymatic activity/volume)Ordered By: Nasrin Watson on 09-30-2022 AST [Catalytic activity/Vol] 23 U/L 10-[address] [facility] Serum or plasma calcium lucie urement (mass/volume)Ordered By: Nasrin Watson on 09-30-2022 Calcium [Mass/Vol] 9.5 mg/dL 8.2-10.2 [facility] Serum or plasma chloride moncho surement (moles/volume)Ordered By: Nasrin Watson on 09-30-2022 Chloride [Moles/Vol] 105 mmol/L 95-114 [facility] Serum or plasma glucose lucie urement (mass/volume)Ordered By: Nasrin Watson on 09-30-2022 Glucose [Mass/Vol] 87 mg/dL 70-100 [facility] Comment on above: ADA recommended refe rence rangeRandom Glucose Reference Range is dependent on time and content of last meal. Glucose of more than 200 mg/dL in a nonstressed, ambulatory subject supports the diagnosis of Diabetes Mellitus. Serum or plasma high density lipoprotein (HDL) cholesterol measurementOrdered By: Nasrin Watson on 09-30-2022 Cholesterol in HDL [Mass/Vol] 50 mg/dL 29-[address] [facility] Comment on above: HDL CHOL ATP-III CLA SSIFICATION Cardiovascular RiskHDL > or equal to 60 mg/dL LOWHDL < 40 mg/dL HIGH Serum or plasma potassium me asurement (moles/volume)Ordered By: Nasrin Watson on 09-30-2022 Potassium [Moles/Vol] 4.3 mmol/L 3.5-5.1 [facility] Serum or plasma sodium measu rement (moles/volume)Ordered By: Nasrin Watson on 09-30-2022 Sodium [Moles/Vol] 140 mmol/L 136-146 [facility] Serum or plasma total biliru bin measurement (mass/volume)Ordered By: Nasrin Watson on 09-30-2022 Bilirubin [Mass/Vol] 0.8 mg/dL 0.3-1.2 [facility] Serum or plasma total carbon dioxide measurement (moles/volume)Ordered By: Nasrin Watson on 09-30-2022 CO2 [Moles/Vol] 26.8 mmol/L 22.0-30.0 [facility] Serum or plasma total choles terol/high density lipoprotein (HDL) cholesterol mass ratOrdered By: Nasrin Watson on 09-30-2022 Cholesterol.total/Yasmeen sterol in HDL [Mass ratio] 3.6 {ratio} <5.[address] [facility] Serum or plasma urea nitroge n measurement (mass/volume)Ordered By: Nasrin Watson on 09-30-2022 Urea nitrogen [Mass/Vol] 14 mg/dL 9-[address] [facility] TSH DL <= 0.005 mIU/L QnOrde red By: Nasrin Watson on 09-30-2022 TSH Qn 3.24 m[IU]/L 0.45-5.[address] [facility] Thyroid Stimulating Hormoneo n 09-30-2022 TSH Qn 3.24 m[IU]/L Normal 0.45-5.[address] [facility] Comment on above: Order Comment: Reaso n for Exam Hyperlipidemia Result Comment: PERF ORMED BY: [facility] [address] [place] [address] PATHOLOGIST RESPIRATORY CLINICIAN VANESSA AWAD M.D. Performed By: #### T SH3, LIPID, CMP ####[facility] [id number] [facility] hospitalairamLIN[facility] [id number] [facility] Triglyceride [Mass/volume] i n Serum or PlasmaOrdered By: Nasrin Watson on 09-30-2022 Triglyceride [Mass/Vol] 85 mg/dL 35-149 F [facility] Comment on above: TRIG ATP III CLASSIF ICATIONTRIG less than 150 mg/dL NormalTRIG 150-199 mg/dL Borderline highTRIG 200-500 mg/dL High TRIG greater than 500 mg/dL Very highStandard traceable to the Center for Disease Conrtrol and Prevention (CDC) test method. WBC Auto (Bld) [#/Vol]Ordere d By: Nasrin Watson on 09-30-2022 WBC (Bld) [#/Vol] 7.2 10*3/uL 4.1-10.5 [facility] XR Hand Complete Right*on XR Hand [...] by Lio Joaquin on 06/26/2022 1501 Normal [facility] Specialist Basophils Auto (Bld) [#/Vol] Ordered By: Nasrin Watson on 06-19-2022 Basophils (Bld) [#/Vol] 0.0 10*3/uL 0.0-0.[address] [facility] Basophils/100 WBC Auto (Bld) Ordered By: Nasrin Watson on 06-19-2022 Basophils/100 WBC (Bld) 0.6 % . [facility] [facility] hemoglobin measurement (mass/volume)Ordered By: Nasrin Watson on 06-19-2022 Hemoglobin (Bld) [Mass/Vol] 15.9 g/dL 13.0-17.[address] [facility] Blood leukocytes automated c ount (number/volume)Ordered By: Nasrin Watson on 06-19-2022 WBC (Bld) [#/Vol] 7.1 10*3/uL 4.5-11.0 [facility] Body fluid albumin measureme nt (mass/volume)Ordered By: Nasrin Watson on 06-19-2022 Albumin (Body fld) [Mass/Vol] 4.2 g/dL 3.2-5.[address] [facility] Cholesterol [Mass/volume] in Serum or PlasmaOrdered By: Nasrin Watson on 06-19-2022 Cholesterol [Mass/Vol] 186 mg/dL 140-200 [facility] Comment on above: Chol less than 200 m g/dl low risk Chol 201-239 mg/dl borderline risk Chol 240 mg/dl and greater high risk Cholesterol in LDL Calc [Mas s/Vol]Ordered By: Nasrin Watson on 06-19-2022 Cholesterol in LDL [Mass/Vol] 118 mg/dL 0-[address] [facility] Comment on above: LDL ATP III CLASSIFI CATION LDL less than 100 mg/dL Optimal LDL 100-129 mg/dL Near or above optimal LDL 130-159 mg/dL Borderline high LDL 160-189 mg/dL High LDL greater than 189 mg/dL Very high Cholesterol in VLDL Calc [Ma ss/Vol]Ordered By: Nasrin Watson on 06-19-2022 Cholesterol in VLDL [Mass/Vol] 24 mg/dL [facility] Creatinine and Glomerular fi ltration rate.predicted panel (S/P/Bld)Ordered By: Nasrin Watson on 06-19-2022 Creatinine [Mass/Vol] 1.21 mg/dL 0.64-1.27 [facility] Eosinophils Auto (Bld) [#/Vo l]Ordered By: Nasrin Watson on 06-19-2022 Eosinophils (Bld) [#/Vol] 0.5 10*3/uL 0.0-0.[address] [facility] Eosinophils/100 WBC Auto (Bl d)Ordered By: Nasrin Watson on 06-19-2022 Eosinophils/100 WBC (Bld) 6.9 % . [facility] Erythrocyte distribution wid th Auto (RBC) [Ratio]Ordered By: Nasrin Watson on 06-19-2022 Erythrocyte distribution width (RBC) [Ratio] 14.3 % 12.0-14.[address] [facility] Estimated glomerular filtrat ion rate (GFR) non- AmericanOrdered By: Nasrin Watson on 06-19-2022 GFR/1.73 sq M.predicted among non-blacks MDRD (S/P/Bld) [Vol rate/Area] 60 mL/Min [facility] Globulin Calc (S) [Mass/Vol] Ordered By: Nasrin Watson on 06-19-2022 Globulin (S) [Mass/Vol] 3.1 g/dL F [facility] Hematocrit Auto (Bld) [Volum e fraction]Ordered By: Nasrin Watson on 06-19-2022 Hematocrit (Bld) [Volume fraction] 47.4 % 38.8-50.[address] [facility] Laboratory - Hematology and Cell countsOrdered By: Nasrin Watson on 06-19-2022 Nucleated RBC/100 WBC (Bld) [Ratio] 0.1 % 0-0.[address] [facility] Lymphocytes Auto (Bld) [#/Vo l]Ordered By: Nasirn Watson on 06-19-2022 Lymphocytes (Bld) [#/Vol] 0.8 10*3/uL 1.00-4.[address] [facility] Lymphocytes/100 WBC Auto (Bl d)Ordered By: Nasrin Watson on 06-19-2022 Lymphocytes/100 WBC (Bld) 11.2 % . [facility] MCH Auto (RBC) [Entitic mass ]Ordered By: Nasrin Watson on 06-19-2022 MCH (RBC) [Entitic mass] 29.7 pg 27.5-35.[address] [facility] MCHC Auto (RBC) [Mass/Vol]Or dered By: Nasrin Watson on 06-19-2022 MCHC (RBC) [Mass/Vol] 33.5 g/dL 32.5-35.6 Fir [facility] MCV Auto (RBC) [Entitic vol] Ordered By: Nasrin Watson on 06-19-2022 MCV (RBC) [Entitic vol] 88.7 fL 83.5-101 F [facility] Monocytes Auto (Bld) [#/Vol] Ordered By: Nasrin Watson on 06-19-2022 Monocytes (Bld) [#/Vol] 0.8 10*3/uL 0.0-0.[address] [facility] Monocytes/100 WBC Auto (Bld) Ordered By: Nasrin Watson on 06-19-2022 Monocytes/100 WBC (Bld) 10.7 % . F [facility] Neutrophils Auto (Bld) [#/Vo l]Ordered By: Nasrin Watson on 06-19-2022 Neutrophils (Bld) [#/Vol] 5.0 10*3/uL 1.8-7.[address] [facility] Neutrophils/100 WBC Auto (Bl d)Ordered By: Nasrin Watson on 06-19-2022 Neutrophils/100 WBC (Bld) 70.6 % . [facility] No Panel InformationOrdered By: Nasrin Watson on 06-19-2022 Estimated GFR () > 60 mL/Min [facility] Comment on above: GFR estimated refere nce range: According to KDOQI guidelines, <60 ml/min/1.73m2 is sufficient to diagnose a patient with chronic kidney disease. Pharmacy Creatinine Clearance (Chem N/A [facility] Platelet mean volume Auto (B ld) [Entitic vol]Ordered By: Nasrin Watson on 06-19-2022 Platelet mean volume (Bld) [Entitic vol] 8.3 fL 6.6-10.[address] [facility] Platelets Auto (Bld) [#/Vol] Ordered By: Nasrin Watson on 06-19-2022 Platelets (Bld) [#/Vol] 273 10*3/uL 150-[address] [facility] Protein [Mass/volume] in Ser um or PlasmaOrdered By: Nasrin Watson on 06-19-2022 Protein [Mass/Vol] 7.3 g/dL 6.1-7.9 [facility] RBC Auto (Bld) [#/Vol]Ordere d By: Nasrin Watson on 06-19-2022 RBC (Bld) [#/Vol] 5.35 10*6/uL 3.90-5.60 [facility] Serum or plasma alanine mckeon otransferase measurement without P-5'-P (enzymatic activiOrdered By: Nasrin Watson on 06-19-2022 ALT No additional P-5'-P [Catalytic activity/Vol] 22 U/L 10-[address] [facility] Serum or plasma albumin/glob ulin mass ratioOrdered By: Nasrin Watson on 06-19-2022 Albumin/Globulin [Mass ratio] 1.4 {ratio} [facility] Serum or plasma alkaline di sphatase measurement (enzymatic activity/volume)Ordered By: Nasrin Watson on 06-19-2022 ALP [Catalytic activity/Vol] 62 U/L 32-[address] [facility] Serum or plasma anion gap de terminationOrdered By: Nasrin Watson on 06-19-2022 Anion gap [Moles/Vol] 14.7 mmol/L 6.0-15.0 [facility] Serum or plasma aspartate am inotransferase measurement (enzymatic activity/volume)Ordered By: Nasrin Watson on 06-19-2022 AST [Catalytic activity/Vol] 23 U/L 10-[address] [facility] Serum or plasma calcium lucie urement (mass/volume)Ordered By: Nasrin Watson on 06-19-2022 Calcium [Mass/Vol] 9.8 mg/dL 8.2-10.2 [facility] Serum or plasma chloride moncho surement (moles/volume)Ordered By: Nasrin Watson on 06-19-2022 Chloride [Moles/Vol] 104 mmol/L 95-114 [facility] Serum or plasma glucose lucie urement (mass/volume)Ordered By: Nasrin Watson on 06-19-2022 Glucose [Mass/Vol] 98 mg/dL 70-100 [facility] Comment on above: ADA recommended refe rence range Random Glucose Reference Range is dependent on time and content of last meal. Glucose of more than 200 mg/dL in a nonstressed, ambulatory subject supports the diagnosis of Diabetes Mellitus. Serum or plasma high density lipoprotein (HDL) cholesterol measurementOrdered By: Nasrin Watson on 06-19-2022 Cholesterol in HDL [Mass/Vol] 43 mg/dL 29-[address] [facility] Comment on above: HDL CHOL ATP-III CLA SSIFICATION Cardiovascular Risk HDL > or equal to 60 mg/dL LOW HDL < 40 mg/dL HIGH Serum or plasma potassium me asurement (moles/volume)Ordered By: Nasrin Watson on 06-19-2022 Potassium [Moles/Vol] 4.0 mmol/L 3.5-5.1 [facility] Serum or plasma sodium measu rement (moles/volume)Ordered By: Nasrin Watson on 06-19-2022 Sodium [Moles/Vol] 137 mmol/L 136-146 [facility] Serum or plasma total biliru bin measurement (mass/volume)Ordered By: Nasrin Watson on 06-19-2022 Bilirubin [Mass/Vol] 0.8 mg/dL 0.3-1.2 [facility] Serum or plasma total carbon dioxide measurement (moles/volume)Ordered By: Nasrin Watson on 06-19-2022 CO2 [Moles/Vol] 22.3 mmol/L 22.0-30.0 [facility] Serum or plasma total choles terol/high density lipoprotein (HDL) cholesterol mass ratOrdered By: Nasrin Watson on 06-19-2022 Cholesterol.total/Yasmeen sterol in HDL [Mass ratio] 4.3 {ratio} <5.[address] [facility] Serum or plasma urea nitroge n measurement (mass/volume)Ordered By: Nasrin Watson on 06-19-2022 Urea nitrogen [Mass/Vol] 24 mg/dL 9-[address] [facility] TSH DL <= 0.005 mIU/L QnOrde red By: Nasrin Watson on 06-19-2022 TSH Qn 8.68 m[IU]/L 0.45-5.[address] [facility] Triglyceride [Mass/volume] i n Serum or PlasmaOrdered By: Nasrin Watson on 06-19-2022 Triglyceride [Mass/Vol] 123 mg/dL 35-149 F [facility] Comment on above: TRIG ATP III CLASSIF ICATION TRIG less than 150 mg/dL Normal TRIG 150-199 mg/dL Borderline high TRIG 200-500 mg/dL High TRIG greater than 500 mg/dL Very high Standard traceable to the Center for Disease Conrtrol and Prevention (CDC) test method. COVID + FLU Quick Testingon 01-27-2022 SARS-CoV-2 (COVID-19) RNA SOPHIE+probe Ql (Unsp spec) Negative [facility] Other COVID + FLU Quick Testing Negative [facility] Other Urine 10 SGon 12-30-2021 Albumin DL <= 20 mg/L (U) [Mass/Vol] Negative [facility] Other pH (U) 5.5 [pH] [facility] Other Urine 10 SG Negative [facility] Other Urine 10 SG >=1.030 [facility] Other Urine 10 SG Moderate [facility] Other Urine 10 SG 0.2 [facility] Other Urine Cultureon 12-30-2021 Bacteria identified Cx Nom (U) [facility] Other Urine 10 SGon 12-22-2021 Albumin DL <= 20 mg/L (U) [Mass/Vol] Negative [facility] Other pH (U) 5.5 [pH] [facility] Other Urine 10 SG Negative [facility] Other Urine 10 SG >=1.030 [facility] Other Urine 10 SG 0.2 [facility] Other Free T4 (Free Thyroxine)on 0 12-04-2021 Free T4 [Mass/Vol] 0.77 ng/dL 0.61-1.12 [facility] Other Thyroid Antibodies TPO+Tg Ab on 12-04-2021 Thyroid Antibodies TPO+Tg Ab 11 0-34 [facility] Other Thyroid Antibodies TPO+Tg Ab <1.0 0.0-0.9 [facility] Other Thyroid Stimulating Hormoneo n 12-04-2021 TSH Qn 6.08 m[IU]/L 0.45-5.33 [facility] Other COVID Quick Testingon 2020 Result Negative [facility] Other HbA1c (Bld) [Mass fraction]o n 08-06-2021 A1C HEMOGLOBIN 5.4 [facility] Other A1C HEMOGLOBIN [facility] Other Vital Signs Date Time Vital Sign Value Performing Clinician Facility 09-13-2023 12:33-0500 Blood Pressure Location Harshil RAM [facility] 09-13-2023 12:33-0500 Respiratory rate 16 /min Harshil RAM [facility] 06-23-2023 13:58-0400 Body temperature 98.4 [degF] Martinez Kaur PA-C Work Phone: [facility] 06-17-2023 08:45-0400 Body height 182.88 cm Nasrin Watson Other [facility] Other 06-17-2023 08:45-0400 Body mass index (BMI) [Ratio] 31.05 kg/m2 Nasrin Watson Other [facility] Other 06-17-2023 08:45-0400 Body weight 103.87 kg Nasrin Watson Other [facility] Other 06-17-2023 08:45-0400 Diastolic blood pressure 86 mm[Hg] Nasrin Cartys Other [facility] Other 06-17-2023 08:45-0400 SaO2% (BldA) [Mass fraction] 99 % Nasrin Watson Other [facility] Other 06-17-2023 08:45-0400 Systolic blood pressure 120 mm[Hg] Nasrin Carlozs Other [facility] Other 12-31-2022 15:22-0400 Diastolic blood pressure 83 mm[Hg] DO Nasrin Watson Work Phone: [facility] 12-31-2022 15:22-0400 Heart rate 73 /min DO Nasrin Kuns Work Phone: [facility] 12-31-2022 15:22-0400 Respiratory rate 16 /min DO Nasrin Kuns Work Phone: [facility] 12-31-2022 15:22-0400 SaO2% (BldA) [Mass fraction] 93 % DO Nasrin Kuns Work Phone: [facility] 12-31-2022 15:22-0400 Systolic blood pressure 131 mm[Hg] DO Nasrin Kuns Work Phone: [facility] 12-31-2022 14:52-0400 Inhaled oxygen flow rate 6 L/min DO Nasrin Kuns Work Phone: [facility] 12-31-2022 13:30-0400 Body height 182.88 cm DO Nasrin Kuns Work Phone: [facility] 12-31-2022 13:30-0400 Body mass index (BMI) [Ratio] 31.1 kg/m2 DO Nasrin Kuns Work Phone: [facility] 12-31-2022 13:30-0400 Body weight 104.32 kg DO Nasrin Kuns Work Phone: [facility] 12-31-2022 11:02-0400 Body temperature 97.9 [degF] DO Nasrin Kuns Work Phone: [facility] 10-06-2022 11:00-0500 Body height 182.88 cm Nasrin [employer] Other [employer] [facility] Other 10-06-2022 11:00-0500 Body mass index (BMI) [Ratio] 31.05 kg/m2 Nasrin [employer] Other [employer] [facility] [employer] Other 10-06-2022 11:00-0500 Body weight 103.87 kg Nasrin Kuns Other [facility] Other 10-06-2022 11:00-0500 Diastolic blood pressure 78 mm[Hg] Nasrin Kuns Other [facility] Other 10-06-2022 11:00-0500 Respiratory rate 16 /min Nasrin Kuns Other [facility] Other 10-06-2022 11:00-0500 SaO2% (BldA) [Mass fraction] 98 % Nasrin Kuns Other [facility] Other 10-06-2022 11:00-0500 Systolic blood pressure 132 mm[Hg] Nasrin Kuns Other [facility] Other 06-23-2022 08:30-0400 Body height 182.88 cm Nasrin Kuns Other [facility] Other 06-23-2022 08:30-0400 Body mass index (BMI) [Ratio] 31.87 kg/m2 Nasrin Kuns Other [facility] Other 06-23-2022 08:30-0400 Body weight 106.6 kg Nasrin Kuns Other [facility] Other 06-23-2022 08:30-0400 Diastolic blood pressure 80 mm[Hg] Nasrin Kuns Other [facility] Other 06-23-2022 08:30-0400 Respiratory rate 16 /min Nasrin Kuns Other [facility] Other 06-23-2022 08:30-0400 SaO2% (BldA) [Mass fraction] 98 % Nasrin Kuns Other [facility] Other 06-23-2022 08:30-0400 Systolic blood pressure 110 mm[Hg] Nasrin Kuns Other [facility] Other 01-27-2022 10:30-0400 Body height 182.88 cm Nasrin Kuns Other [facility] Other 01-27-2022 10:30-0400 Body mass index (BMI) [Ratio] 31.33 kg/m2 Nasrin Kuns Other [facility] Other 01-27-2022 10:30-0400 Body temperature 98.6 [degF] Nasrin Kuns Other [facility] Other 01-27-2022 10:30-0400 Body weight 104.78 kg Nasrin Kuns Other [facility] Other 01-27-2022 10:30-0400 Diastolic blood pressure 80 mm[Hg] Nasrin Kuns Other [facility] Other 01-27-2022 10:30-0400 Respiratory rate 18 /min Nasrin Kuns Other [facility] Other 01-27-2022 10:30-0400 SaO2% (BldA) [Mass fraction] 93 % Nasrin Kuns Other [facility] Other 01-27-2022 10:30-0400 Systolic blood pressure 115 mm[Hg] Nasrin Kuns Other [facility] Other 01-02-2022 13:45-0400 Body height 182.88 cm Nasrin Kuns Other [facility] Other 01-02-2022 13:45-0400 Body mass index (BMI) [Ratio] 32.68 kg/m2 Nasrin Kuns Other [facility] Other 01-02-2022 13:45-0400 Body weight 109.32 kg Nasrin Kuns Other [facility] Other 01-02-2022 13:45-0400 Diastolic blood pressure 80 mm[Hg] Nasrin Kuns Other [facility] Other 01-02-2022 13:45-0400 Respiratory rate 18 /min Nasrin Kuns Other [facility] Other 01-02-2022 13:45-0400 SaO2% (BldA) [Mass fraction] 93 % Nasrin Kuns Other [facility] Other 01-02-2022 13:45-0400 Systolic blood pressure 122 mm[Hg] Nasrin Kuns Other [facility] Other 12-22-2021 08:30-0400 Body height 182.88 cm Nasrin Kuns Other [facility] Other 12-22-2021 08:30-0400 Body mass index (BMI) [Ratio] 32.55 kg/m2 Nasrin Kuns Other [facility] Other 12-22-2021 08:30-0400 Body weight 108.86 kg Nasrin Kuns Other [facility] Other 12-22-2021 08:30-0400 Diastolic blood pressure 86 mm[Hg] Nasrin Kuns Other [facility] Other 12-22-2021 08:30-0400 Respiratory rate 16 /min Nasrin Kuns Other [facility] Other 12-22-2021 08:30-0400 SaO2% (BldA) [Mass fraction] 98 % Nasrin Kuns Other [facility] Other 12-22-2021 08:30-0400 Systolic blood pressure 120 mm[Hg] Nasrin Kuns Other [facility] Other 12-04-2021 09:00-0500 Body height 182.88 cm Nasrin Kuns Other [facility] Other 12-04-2021 09:00-0500 Body mass index (BMI) [Ratio] 32.19 kg/m2 Nasrin Kuns Other [facility] Other 12-04-2021 09:00-0500 Body weight 107.68 kg Nasrin Kuns Other [facility] Other 12-04-2021 09:00-0500 Diastolic blood pressure 78 mm[Hg] Nasrin Kuns Other [facility] Other 12-04-2021 09:00-0500 Respiratory rate 16 /min Nasrin Kuns Other [facility] Other 12-04-2021 09:00-0500 SaO2% (BldA) [Mass fraction] 97 % Nasrin Kuns Other [facility] Other 12-04-2021 09:00-0500 Systolic blood pressure 110 mm[Hg] Nasrin Kuns Other [facility] Other 08-26-2021 13:45-0500 Body height 182.88 cm Nasrin Kuns Other [facility] Other 08-26-2021 13:45-0500 Body mass index (BMI) [Ratio] 32.28 kg/m2 Nasrin Kuns Other [facility] Other 08-26-2021 13:45-0500 Body weight 107.96 kg Nasrin Kuns Other [facility] Other 08-26-2021 13:45-0500 Diastolic blood pressure 70 mm[Hg] Nasrin Kuns Other [facility] Other 08-26-2021 13:45-0500 Respiratory rate 16 /min Nasrin Kuns Other [facility] Other 08-26-2021 13:45-0500 Systolic blood pressure 112 mm[Hg] Nasrin Kuns Other [facility] Other 08-06-2021 16:45-0400 Body height 182.88 cm Nasrin Kuns Other [facility] Other 08-06-2021 16:45-0400 Body mass index (BMI) [Ratio] 32.41 kg/m2 Nasrin Kuns Other [facility] Other 08-06-2021 16:45-0400 Body weight 108.41 kg Nasrin Kuns Other [facility] Other 08-06-2021 16:45-0400 Diastolic blood pressure 80 mm[Hg] Nasrin Watson Other [facility] Other 08-06-2021 16:45-0400 Respiratory rate 18 /min Nasrin Watson Other [facility] Other 08-06-2021 16:45-0400 SaO2% (BldA) [Mass fraction] 97 % Nasrin Watson Other [facility] Other 08-06-2021 16:45-0400 Systolic blood pressure 115 mm[Hg] Nasrin Watson Other [facility] Other Encounters Encounter Date Encounter Type Care Provider Facility Start: 11-08-2023 ambulatory Harshil Gonzalez ty:[facility] Start: 10-25-2023 ambulatory Harshil Serranoi ty:[facility] Start: 10-15-2023 End: 10-15-2023 ambulatory Nasrin Watson Other [facility] Other Start: 10-15-2023 Telephone encounter Nasrin Watson [facility] [place] Start: 10-07-2023 End: 10-07-2023 ambulatory SKYE TOBIN Not Available Start: 10-05-2023 End: 10-06-2023 ambulatory Harshil RAM [facility] Start: 10-05-2023 End: 10-05-2023 Patient encounter procedure Harshil RAM [facility] Start: 09-23-2023 End: 09-23-2023 ambulatory MARTINEZ KAUR Facility:[facility] Start: 09-13-2023 End: 09-14-2023 ambulatory NASRIN WATSON [facility] Start: 09-13-2023 End: 09-13-2023 Patient encounter procedure Harshil RAM [facility] [place] Start: 07-07-2023 End: 07-07-2023 ambulatory Nasrin Watson Other [facility] Other Start: 07-07-2023 Encounter by veronica Watson [facility] Start: 06-23-2023 End: 06-23-2023 ambulatory MARTINEZ KAUR Facility:[facility] Start: 06-23-2023 End: 06-23-2023 Patient encounter procedure Martinez Kaur PA-C Work Phone: Otolaryngology Comment on above: Bilateral hearing lo ss, unspecified hearing loss type (Primary Dx); Wears hearing aid in both ears; ETD (Eustachian tube dysfunction), bilateral; Environmental and seasonal allergies; Referred otalgia of both ears Start: 06-22-2023 ambulatory Harshil RAM Facility :[facility] Start: 06-22-2023 End: 06-22-2023 ambulatory [facility] Facility:[facility] Start: 06-22-2023 End: 06-22-2023 ambulatory DO Nasrin Watson Work Phone: [facility] Work Phone: Start: 06-22-2023 End: 06-22-2023 Departed Referred DO Nasrin Watson Work Phone: [facility] Work Phone: Start: 06-17-2023 Office outpatient visit 25 minutes Nasrin Watson [facility] Start: 06-17-2023 End: 06-17-2023 ambulatory DO Nasrinkeo Watson Work Phone: [facility] Work Phone: Start: 06-17-2023 End: 06-17-2023 Patient encounter procedure DO Nasrin Watson Work Phone: [facility] [place] Work Phone: Start: 05-31-2023 End: 05-31-2023 ambulatory Nasrin Kuns Facility:[facility] Start: 05-31-2023 End: 05-31-2023 ambulatory DO Nasrin Kuns Work Phone: [facility] Work Phone: Start: 05-31-2023 End: 05-31-2023 Patient encounter procedure DO Nasrin Kuns Work Phone: [facility] [place] Work Phone: Start: 05-20-2023 End: 05-20-2023 ambulatory Nasrin Kuns Other [facility] Other Start: 05-20-2023 Telephone encounter Nasrin Kuns [facility] Start: 03-09-2023 End: 03-09-2023 ambulatory Nasrin Kuns Other [facility] Other Start: 03-09-2023 Telephone encounter Nasrin Kuns [facility] Start: 03-08-2023 End: 03-08-2023 ambulatory Nasrin Kuns Other [facility] Other Start: 03-08-2023 Telephone encounter Nasrin Kuns [facility] Start: 01-04-2023 End: 01-04-2023 ambulatory Nasrin Kuns Other [facility] Other Start: 01-04-2023 Telephone encounter Nasrin Kuns [facility] Start: 12-31-2022 End: 12-31-2022 ambulatory Nasrin Kuns Facility:[facility] Start: 12-31-2022 End: 12-31-2022 Admission to same day surgery center DO Nasrin Kuns Work Phone: [facility] [place] Start: 12-31-2022 End: 12-31-2022 ambulatory DO Nasrin Kuns Work Phone: [facility] Work Phone: Start: 12-18-2022 End: 12-18-2022 ambulatory Kameron Marin Facility:[facility] Start: 12-18-2022 End: 12-18-2022 ambulatory DO Nasrin Kuns Work Phone: [facility] Work Phone: Start: 12-18-2022 End: 12-18-2022 Patient encounter procedure DO Nasrin Kuns Work Phone: [facility] Work Phone: Start: 12-08-2022 End: 12-08-2022 ambulatory Kameron Marin Facility:[facility] Start: 12-08-2022 End: 12-08-2022 Patient encounter procedure DO Nasrin Kuns Work Phone: [facility] [place] Work Phone: Start: 11-24-2022 End: 11-24-2022 ambulatory Nasrin Kuns Other [facility] Other Start: 11-24-2022 Telephone encounter Nasrin Carlozs [facility] Start: 10-06-2022 End: 10-06-2022 ambulatory Nasrin Kuns Other [facility] Other Start: 10-06-2022 Annual wellness visit Nasrin Ku ns Other [facility] Other Start: 10-06-2022 Patient encounter procedure Nasrin Kuns [facility] Start: 09-30-2022 End: 09-30-2022 ambulatory Nasrin Kuns Facility:[facility] Start: 09-30-2022 End: 09-30-2022 ambulatory DO Nasrin Kuns Work Phone: [facility] Work Phone: Start: 09-30-2022 End: 09-30-2022 Patient encounter procedure DO Nasrin Kuns Work Phone: [facility] [address] Work Phone: Start: 08-25-2022 End: 08-25-2022 ambulatory Nasrin Kuns Other [facility] Other Start: 08-25-2022 Telephone encounter Nasrin Kuns [facility] [place] Start: 08-03-2022 End: 08-03-2022 ambulatory Nasrin Kuns Other [facility] Other Start: 08-03-2022 Telephone encounter Nasrin Kuns [facility] [place] Start: 07-28-2022 End: 07-28-2022 ambulatory Nasrin Kuns Other [facility] Other Start: 07-28-2022 Telephone encounter Nasrin Kuns [facility] [place] Start: 06-23-2022 End: 06-23-2022 ambulatory Nasrin Kuns Other [facility] Other Start: 06-23-2022 Office outpatient visit 25 minutes Nasrin Kuns [facility] [place] Start: 06-19-2022 End: 06-19-2022 Patient encounter procedure DO Nasrin Kuns Work Phone: [facility] [place] Start: 06-02-2022 End: 06-02-2022 ambulatory Nasrin Kuns Other [facility] Other Start: 06-02-2022 Telephone encounter Nasrin Kuns [facility] [place] Start: 01-27-2022 End: 01-27-2022 ambulatory Nasrin Kuns Other [facility] Other Start: 01-27-2022 Office outpatient visit 15 minutes Nasrin Kuns [facility] [place] Start: 01-27-2022 Telephone encounter Nasrin Kuns [facility] [place] Start: 01-26-2022 End: 01-26-2022 ambulatory Nasrin Kuns Other [facility] Other Start: 01-26-2022 Telephone encounter Nasrin Kuns [facility] [place] Start: 01-02-2022 End: 01-02-2022 ambulatory Nasrin Kuns Other [facility] Other Start: 01-02-2022 Office outpatient visit 15 minutes Nasrin Kuns [facility] [place] Start: 12-30-2021 End: 12-30-2021 ambulatory Nasrin Kuns Other [facility] Other Start: 12-30-2021 Nursing evaluation o f patient and report Nasrin Kuns [facility] [place] Start: 12-30-2021 Telephone encounter Nasrin Kuns [facility] [place] Start: 12-22-2021 End: 12-22-2021 ambulatory Nasrin Kuns Other [facility] Other Start: 12-22-2021 Encounter for genera l adult medical examination without abnormal findings Nasrin Kuns [facility] [place] Start: 12-22-2021 Office outpatient visit 25 minutes Nasrin Kuns [facility] [place] Start: 12-04-2021 End: 12-04-2021 ambulatory Nasrin Kuns Other [facility] Other Start: 12-04-2021 Encounter for genera l adult medical examination without abnormal findings Nasrin Kuns [facility] [place] Start: 12-04-2021 Periodic preventive med est patient 40-64yrs Nasrin Kuns [facility] [place] Start: 08-26-2021 End: 08-26-2021 ambulatory Nasrinkeo Watson Other [facility] Other Start: 08-26-2021 Office outpatient visit 15 minutes Nasrinkeo Watson [facility] Start: 08-25-2021 ([facility] C Vac) [facility] Covid Vaccine Shanell Byrne [facility] Start: 08-25-2021 End: 08-25-2021 ambulatory Shanell Smitht Other [facility] Other Start: 08-06-2021 End: 08-06-2021 ambulatory Nasrinkeo Watson Other [facility] Other Start: 08-06-2021 Office outpatient visit 25 minutes Nasrin Watson [facility] Start: 11-05-2020 Patient encounter status Nasrin Watson Other [facility] Other Start: 08-19-2020 End: 08-26-2020 ambulatory REFERRED SELF Facility:[facility] Start: 09-05-2018 Patient encounter procedure NASRIN WATSON [...] 06-04-2023 Influenza vaccination Influenza Vacc ine (#1) [facility] Start: 12-31-[address] [facility] Start: 12-31-[address] [facility] Start: 10-04-2022 Advance Directive Discussion Advance Directive Discussion [facility] Start: 10-04-2022 Depression Assessment Depression Ass essment [facility] Start: 10-20-2021 Covid-19 Vaccine (4 - Pfizer series) Covid-19 Vaccine (4 - Pfizer series) [facility] Start: 2012 Prostate Cancer Screening Discussion Prostate Cancer Screening Discussion [facility] Start: 2007 Shingrix Vaccine (1 of 2) Shingrix Vaccine (1 of 2) [facility] Start: 2002 Cologuard (FIT-DNA) Cologuard (FIT-D NA) [facility] Start: 2002 Colonoscopy Colonoscopy [facility] Start: 2002 Colorectal Cancer Screening Colorectal Cancer Screening [facility] Start: [address] COLONOGRAPHY [facility] Start: 2002 Diabetes Screening Diabetes Screenin g [facility] Start: 2002 Fecal Occult Blood Fecal Occult Bloo d [facility] Start: 2002 SIGMOIDOSCOPY SIGMOIDOSCOPY [facility] Start: 1992 Lipid 1996 panel - S deion or Plasma Lipid Screening [facility] Start: 1976 Urine microalbumin profile DTaP,Tdap,Td Vaccine (1 - Tdap) [facility] Start: 1975 Hepatitis C Screening Hepatitis C Sc jaun [facility] Start: 1975 HIV Screening HIV Screening [facility] Start: 1963 Pneumococcal Vaccine : 65+ (1 - PCV) Pneumococcal Vaccine: 65+ (1 - PCV) [facility] Start: 1957 Abdominal Aortic Aneurysm Screening Abdominal Aortic Aneurysm Screening [facility] HEARING TEST/AUDIOGRAM HEARING T EST/AUDIOGRAM Audiology Routine Wears hearing aid in both ears ETD (Eustachian tube dysfunction), bilateral Bilateral hearing loss, unspecified hearing loss type Ordered: 06/23/2023 [facility] Work Phone: Comment on above: Ordered: 06/23/2023 Patient Education Stitches and S taples Hydrocodone and Acetaminophen [facility] Work Phone: Patient referral [facility] Work Phone: [facility] Immunizations Immunization Date Immunization Notes Care Provider Marisela wheeler 06-22-2023 zoster vaccine recombinant Harshil RAM [facility] 08-25-2021 COVID-19 Pfizer Shanell Luist Other [facility] 01-09-2021 COVID-19 Vaccine Pfizer - Documentation Purposes Only Nasrin Kuns Other [facility] 12-19-2020 COVID-19 Vaccine Pfizer - Documentation Purposes Only Nasrin Kuns Other [facility] 11-19-2014 zoster vaccine, live Nasrin Carlozs Other [employer] [facility] Other 06-22-2014 tetanus toxoid, reduced diphtheria toxoid, and acellular pertussis vaccine, adsorbed Nasrin Kuns Other [facility] Other 09-08-2012 influenza virus vaccine, split virus (incl. purified surface antigen) Nasrin Carlozs Other [facility] Other NEGATED: Highlighted row has not occurred!10-24-2019 influenza, seasonal, injectable Patient Objection Nasrin Watson Other [employer] [facility] Other Payers Date Payer Category Payer Private Health Insurance [facility] AARP SUPPLEMENT [id number] 2022-Present [phone] [address] [place] [address] Indemnity [id number] 2022 Unknown [id number] 2022 Self-pay [id number] 2022 Unknown [id number] 2022 Medicare [id number] 2022 Medicare MEDICARE MEDICAR E A AND B [id number] 2022-Present [phone] [place] [address] Medicare [id number] 1957 Unknown [id number] 2.16.840.1.451364.3.579.2. 355 1957 Unknown [id number] 2.16.840.1.589652.3.579.2. 356 1957 Unknown [id number] 2.16.840.1.708684.3.579.2. 647 1957 Unknown [id number] 2.16.840.1.606166.3.579.2. 727 1957 Unknown [id number] 2.16.840.1.024646.3.579.2. 727 1957 Unknown [id number] 2.16.840.1.131404.3.579.2. 727 1957 Unknown [id number] 2.16.840.1.284146.3.579.2. 727 1957 Unknown [id number] 2.16.840.1.214679.3.579.2. 727 1957 Unknown [id number] 2.16.840.1.130355.3.579.2. 1259 Unknown [id number] Unknown [id number] 2.16.840.1.247462.19 Unknown [id number] 2.16.840.1.246520.3.579.2. 531 Unknown [id number] 2.16.840.1.858745.3.579.2. 531 Unknown [id number] 2.16.840.1.174497.3.579.2. 531 Unknown [id number] 2.16.840.1.271691.3.579.2. 531 Unknown [id number] 2.16.840.1.301782.3.579.2. 531 Unknown [id number] 2.16.840.1.309326.3.579.2. 531 Unknown [id number] 2.16.840.1.721848.3.579.2. 531 Social History Date Type Detail Facility Unknown if ever smoked [facility] Other Sex Assigned At [facility] Start: 10-26-2019 End: 09-13-2023 Tobacco smoking status MAIS Ex-smoker (finding) [facility] Start: 1955 Sex Assigned At Male F [facility] Start: 09-07-2011 Tobacco smoking stat us [facility] Smokes tobacco daily [facility] Work Phone: History of tobacco use Cigarette Smoker [facility] Work Phone: Start: 09-07-2011 Cigarettes smoked current (pack per day) - Reported 0.1 [facility] Start: 09-07-2011 Tobacco use and exposure Smokeless tobacco non-user [facility] Work Phone: Start: 05-21-2022 Alcohol intake Current non-dr mold repairer of alcohol (finding) [facility] Start: 1955 Sex Assigned At Not on file [facility] Tobacco smoking status Never [facility] Goals Date Patient Goal Desired Activity /State Functional Status Date Assessment Result Facility 10-05-2023 Functional Status N/A [facility] 09-13-2023 Functional Status N/A [facility] Clinical Notes 10-29-2010 to 10-05-2023 Note Date & Type Note Facility 10-05-2023 Note [id number]#1.00TIFF [facility] 10-05-2023 Evaluation + Plan note Extrac james [...] He will get scheduled for a TURP. [facility]01-02-2024 Note [id number]#[facility] Discharge instructions Patient Education [...] [facility] [address], [place] [address]- Business (1) When: Unknown Comments:Office will call to schedule follow up [facility]01-02-2024 NoteCustom Cystoscopy ? Voiding after the procedure: [...] if you have a fever over 100 degrees.[facility] 09-23-2023 NoteHNO ID: [id number] Author: Martinez Kaur PA-C Service: ? Author Type: Physician Bull Gang Supervisor Type: Progress Notes Filed: 09/24/2023 2:36 PM Note Text: [facility] FOLLOW-UP CLINIC NOTE CC: Mr. Youssef is [...] and interested in pursuing hearing aids through [facility] Audiology section. No new head or neck [...] RELIEF) 50 mcg/actuation nasal spray Use 1 Alderson in each nostril twice daily. amitriptyline 100 [...] teeth (caries, dentures, extractions (more content not included)...[facility]12-21-2023 NoteHNO ID: [id number] Author: Ivette Poole AuD, [facility] Service: ? Author Type: School Psychological Examiner Type: Procedures Filed: 10/05/2023 8:57 PM Note Text: [facility] [place] AUDIOLOGIC EVALUATION REPORT Name: Vasile Youssef CC#: [id number] Date of Service: 09/23/2023 Date of : 1955 Age: [age] year old Referred by: Martinez Kaur [address] [facility] [address] Referred for: Evaluation of the cause of disorder of hearing, tinnitus, or balance. Referral documented: In an order in [facility] Patient's major complaints: Vasile has known history [...] seen for an initial audiologic evaluation. See [facility] for additional reported history and symptoms. [...] evaluation of middle ear function. CPT code: 70893 RIGHT EAR: Normal ME pressure and high TM compliance (mobility). LEFT EAR: Normal ME pressure and high TM compliance (mobility). PURE TONE AUDIOMETRY AND SPEECH TESTING Description of procedure: This test is an objective evaluation hearing sensitivity via air and bone conduction and speech recognition testing. CPT code:89508 RIGHT EAR: Hearing Sensitivity: Mild sloping to [...] enhance communication ability. Clayton Strong, LOI/A Clinical School Psychological Examiner HALL Abbrev- iation Definition Degree of hearing sensitivity dB range WNL within normal limits WNL 0 - 20 SNHL sensorineural hearing loss Mild 20-40 CHL conductive hearing loss Moderate 40-55 MHL mixed hearing loss Moderately-Severe 55-70 WRS word recognition score Severe 70-90 ME middle ear Profound 90 + TM [facility]23 NoteChief Complaint Referral *Elevated PSA HPI [...] order Local anesthesia. - (more content not included)...[facility]: Result Comment: Electronically Signed By: Harshil RAM MD\.br\Date and Time Signed: 09/13/23 13:55 EST\.br\Electronically Co-Signed By: Luz Valera\.br\Date and Time Co-Signed: 09/13/23 13:52 [id number] Hospital Discharge instructions Patient Education 09/13/2023 13:48:18 [...] urethra. Follow these instructions at home: Take mpdc-yaf-onpaxdv and prescription medicines only as told by [...] provider. Document Revised: 04/08/2022 Document Reviewed: 04/08/2022 [place] Patient Education 2022 [employer]. Follow Up Care 06/22/2023 11:30:17 With:YO OLIVA, ANDRY Fagan Address: [facility] [address] , [place] [address]- When: Unknown Comments:Schedule Cysto w/Bladder function test [facility] Jason 10-04-2023 Evaluation note* Encounter Date Diagnosis Assessment Notes Treatment Notes Treatment Clinical Notes Jul, Insomnia (ICD-10 - G47.00) [facility] Other 09-20-2023 NoteHNO ID: [id number] Author: Martinez Kaur PA-C Service: ? Author Type: Physician Bull Gang Supervisor Type: Progress Notes Filed: 06/23/2023 3:26 PM Note Text: [facility] NOTE CC: Vasile Youssef is a [...] last 2 weeks. Patient initially went to [facility] to have hearing aids checked and was told they were working correctly. On examination, patient reports he was told he had puffiness or fluid in ear drums and needed to see ENT. Patient reports he experienced similar symptoms last year when flying to [place], resolved a few days after completion of [...] RELIEF) 50 mcg/actuation nasal spray Use 1 Alderson in each nostril twice daily. amitriptyline 100 [...] stridor or stertor. Hear (more content not included)...[facility]09-20-2023 History of Present illness Narrative* Martinez Kaur PA-C - 06/23/2023 2:13 PM EDT Images from the original note were not included. [facility] NOTE CC: Vasile Youssef is a [...] last 2 weeks. Patient initially went to [facility] to have hearing aids checked and wastold they were working correctly. On examination, patient reports he was told he had puffiness or f luid in ear drums and needed to see ENT. Patient reports he experienced similar symptoms last yearwhen flying to [place], resolved a few days after completion of [...] RELIEF) 50 mcg/actuation nasal spray Use 1 Alderson in each nostril twicedaily. amitriptyline 100 mg [...] Level: 4 - Moderate [facility]* Encounter Date Diagnosis Assessment Notes [...] aids. Patient encourged to follow up with [facility] ENT next week as scheduled. Jun, History [...] tract symptoms (ICD-10 - N40.1) Urology evaluation [facility] Other 08-17-2023 Evaluation note* Encounter Date Diagnosis Assessment Notes Treatment Notes Treatment Clinical Notes May, Hyperlipidemia (ICD-10 - E78.5) May, Screening for prostate cancer (ICD-10 - Z12.5) [facility] Other 06-06-2023 Evaluation note* Encounter Date Diagnosis Assessment Notes Treatment Notes Treatment Clinical Notes Mar, Insomnia (ICD-10 - G47.00) [facility] Other 06-05-2023 Evaluation note* Encounter Date Diagnosis Assessment Notes Treatment Notes Treatment Clinical Notes Mar, Acute urinary retention (ICD-10 - R33.8) [facility] Other 04-03-2023 Evaluation note* Encounter Date Diagnosis Assessment Notes Treatment Notes Treatment Clinical Notes Jan, Insomnia (ICD-10 - G47.00) [facility] Other 01-03-2023 Evaluation note* Encounter Date Diagnosis [...] - Z12.5) Oct, Insomnia (ICD-10 - G47.00) [facility] Other 11-22-2022 Evaluation note* Encounter Date Diagnosis Assessment Notes Treatment Notes Treatment Clinical Notes Aug, Acute urinary retention (ICD-10 - R33.8) [facility] Other 10-31-2022 Evaluation note* Encounter Date Diagnosis Assessment Notes Treatment Notes Treatment Clinical Notes Jul, Acute urinary retention (ICD-10 - R33.8) [facility] Other 10-25-2022 Evaluation note* Encounter Date Diagnosis Assessment Notes Treatment Notes Treatment Clinical Notes Jul, Eustachian tube dysfunction (ICD-10 - H69.80) [facility] Other 09-20-2022 Evaluation note* Encounter Date Diagnosis [...] Screening for prostate cancer (ICD-10 - Z12.5) [facility] Other 08-30-2022 Evaluation note* Encounter Date Diagnosis Assessment Notes Treatment Notes Treatment Clinical Notes May, Insomnia (ICD-10 - G47.00) [facility] Other 04-26-2022 Evaluation note* Encounter Date Diagnosis [...] pain medication and fever reducers as needed. [facility] Other 04-25-2022 Evaluation note* Encounter Date Diagnosis Assessment Notes Treatment Notes Treatment Clinical Notes Jan, Urinary retention (ICD-10 - R33.9) [facility] Other 04-01-2022 Evaluation note* Encounter Date Diagnosis [...] symptoms worsen. Jan, Dysuria (ICD-10 - R30.0) [facility] Other 03-29-2022 Evaluation note* Encounter Date Diagnosis [...] voiced understanding Dec, Nocturia (ICD-10 - R35.1) [facility] Other 03-21-2022 Evaluation note* Encounter Date Diagnosis [...] from wellness last visit. Urinalysis was normal. [facility] Other 03-03-2022 Evaluation note* Encounter Date Diagnosis [...] stay asleep. We will continue to monitor. [facility] Other 11-23-2021 Evaluation note* Encounter Date Diagnosis [...] - Z12.5) Aug, Hyperlipidemia (ICD-10 - E78.5) [facility] Other 11-22-2021 Evaluation note* Encounter Date Diagnosis Assessment Notes Treatment Notes Treatment Clinical Notes Aug, Encounter for immunization (ICD-10 - Z23) Patient presents for COVID-19 vaccination BOOSTER. Pre-screening form answers evaluated with patient. Patient denies current illness or allergic reaction to component of COVID-19 vaccine. Patient provided with current copy of EUA. [facility] Other 11-03-2021 Evaluation note* Encounter Date Diagnosis [...] shortness of breath or adventitious sounds auscultation [facility] Other 01-26-2011 History general Narrative - Reported* [...] Pulmonary Embolism , Right leg DVT 09/2019 [facility] Other 01-26-2011 History general Narrative - Reported* [...] Pulmonary Embolism , Right leg DVT 09/2019 [facility] Other Evaluation + Plan note Future Appointments Appointment Date:09/28/2023 10:45:00 AM Scheduled Provider: Location:[facility] Appointment Type:Urology CALL PAT FT Appointment Date:10/05/2023 08:00:00 AM Scheduled Provider: Location:[facility] Appointment Type:Urology FT Appointment Date:10/05/2023 09:15:00 AM Scheduled Provider: Location:[facility] Appointment Type:Urology FT Diagnostic Tests Pending * PSA Free & Total 09/13/23 [facility] evaluation [facility]No [facility] Other Evaluation noteNo assessment information available [facility] Work Phone: Evaluation note* Diagnosis Bilateral hearing loss, unspecified hearing loss type- Primary Wears hearing aid in both ears ETD (Eustachian tube dysfunction), bilateral Environmental and seasonal allergies Referred otalgia of both ears documented in this encounter [facility] course Narrative No data available for this section [facility] progress note No data available for this section [facility] Summary Purpose Family History Relationship Condition Age [...] THRESHOLD EVAL SP Martinez Peng PA-C [address] [place] [address] [facility] [address] [place] [address] Referral ID Status Reason Start Date Expiration Date Visits Requested Visits Authorized [id number] Authorized Auto-Generat ed Referral 06/23/2023 09/21/2023 1 1 Reason consult and treat Diagnosis 1 Elevated PSA (R97.20 ) Referral Organization [facility] [place] Referring Provider First Name Nasrin Referring Provider Last Name Donna Referring Provider Specialty Family Prac mark Referred Organization [facility] Referred Provider Dinesh Ballard Referred Address [address],[place], [place],[address] Referred Provider Specialty Urology Referral Priority Routine [...] content) DATE CREATED AUTHOR 09/12/2018 [facility] DATE CREATED AUTHOR AUTHOR'S ORGANIZ ATION 09/13/2018 [facility] DATE CREATED AUTHOR AUTHOR'S ORGANIZ ATION 08/26/2021 [facility] DATE CREATED AUTHOR AUTHOR'S ORGANIZ ATION 07/06/2022 [facility] dical Specialist DATE CREATED AUTHOR AUTHOR'S ORGANIZ ATION 06/23/2023 [facility] DATE CREATED AUTHOR AUTHOR'S ORGANIZ ATION 10/06/2023 [facility] DATE CREATED AUTHOR AUTHOR'S ORGANIZ ATION 10/08/2023 [facility] DATE CREATED AUTHOR AUTHOR'S ORGANIZ ATION 10/09/2023 [facility] dical Specialists EPIC REASON FOR VISIT (unrecogniz ed section and content) BRK to call Reason Comments Ear Problem Care Teams (unrecognized sec tion and content) Team Status: Inactive Member Role Status Dates Nasrin Watson , DO Primary Care Provider, Attending Provi belem Active Team Status: Active Member Role Status Dates Nasrin Wtason , DO Primary Care Provider Active Team [...] or prosecute any alcohol or drug abuse patient.[facility] FOR RECORDS PERTAINING TO PATIENTS WHO ARE [...] BE BASED ON THE PRIMARY CLINICAL RECORDS. [facility]. provides no warranty or guarantee of the accuracy or completeness of information in this document.
[2023-10-21] MEDS: 0.9 % SODIUM CHLORIDE 1,000 ML 80 ML IV (17:01)
[2023-10-21] MEDS: SOLIFENACIN SUCCINATE 10 MG TABLET PO (17:48)
[2023-10-21] MEDS: SODIUM CHLORIDE IRRIG SOLUTION 3,000 ML 999 ML IRR ×5 (18:26→18:39)
[2023-10-21] MEDS: CEFAZOLIN SODIUM/DEXTROSE,ISO 1 GM/50 ML IV.SOLN IV (18:28)
[2023-10-21] MEDS: SODIUM CHLORIDE IRRIG SOLUTION 3,000 ML 100 ML IRR ×4 (19:48→22:36)
[2023-10-21] MEDS: TAMSULOSIN HCL 0.4 MG CAPSULE PO (21:04)
[2023-10-21] MEDS: TEMAZEPAM 15 MG CAPSULE PO (21:04)
[2023-10-21] MEDS: CIPROFLOXACIN HCL 500 MG TABLET PO (21:04)
[2023-10-22] MEDS: SODIUM CHLORIDE IRRIG SOLUTION 3,000 ML 100 ML IRR ×4 (00:10→03:15)
[2023-10-22] MEDS: CEFAZOLIN SODIUM/DEXTROSE,ISO 1 GM/50 ML IV.SOLN IV (00:36)
[2023-10-22 02:12] VITALS: BP 116/70; PULSE 68; RESP 18; TEMP 36.4; O2SAT 94
--- NOTE | 2023-10-22 02:36 | PC.NURSE ---
light watermelon color
[2023-10-22 05:36] VITALS: BP 110/72; PULSE 68; RESP 18; TEMP 36.6; O2SAT 92
[2023-10-22] MEDS: 0.9 % SODIUM CHLORIDE 1,000 ML 80 ML IV (06:27)
[2023-10-22 08:11] LABS: PSA, Free 1.52 ng/mL; Prostate Specific Ag 6.3 ng/mL (0.0-4.0)
[2023-10-22] MEDS: HYDROCODONE/ACET 5-325 MG TABLET 1 TAB PO (09:43)
[2023-10-22] MEDS: TAMSULOSIN HCL 0.4 MG CAPSULE PO (09:43)
[2023-10-22] MEDS: SOLIFENACIN SUCCINATE 10 MG TABLET PO (09:44)
[2023-10-22] MEDS: CIPROFLOXACIN HCL 500 MG TABLET PO (09:44)
[2023-10-22] MEDS: LEVOTHYROXINE SODIUM 25 MCG TABLET 50 MCG PO (09:44)
== END 2023-10-22 11:08 | disposition home or self-care (01) ==
LOC: SURGOUT 15:06 → MS 15:07
PROVIDERS: PCP Family Medicine; Visit Provider Urology
PROC: (CPT 52601; principal; 2023-10-21 11:15)
DX: N40.1 Benign prostatic hyperplasia with lower urinary tract symptoms (principal); R97.20 Elevated prostate specific antigen [PSA]; E03.9 Hypothyroidism, unspecified; E78.5 Hyperlipidemia, unspecified; G47.00 Insomnia, unspecified; Z86.711 Personal history of pulmonary embolism; Z87.891 Personal history of nicotine dependence; R33.9 Retention of urine, unspecified; R35.1 Nocturia; Z86.718 Personal history of other venous thrombosis and embolism; N13.8 Other obstructive and reflux uropathy; Z90.49 Acquired absence of other specified parts of digestive tract; Z23 Encounter for immunization
CPT/HCPCS: 52601; 36415; 84153; 84154; 88305; 90471; 90662; 96365; G0008; J0690; J1100; J1170; J1885; J2250; J2405; J2704; J3010